=== PATIENT | female | born 1945 | race Two or more races ===

== ENCOUNTER 2017-02-20 23:22 | Inpatient (IN) | payer MEDICARE, OTHER ==
[~2017-02-20] VITALS: Ht 154.9 cm; Wt 57.6 kg
[~2017-02-20 23:22] MED LIST: ALPR0.255 PO; APIX5TAB PO; ASPI81TA2 PO; BLOO-140 IN; CARV12.52 PO; FURO40TA5 PO; INSU100V26 SQ; ISOS30TA47 PO
--- NOTE | 2017-02-20 23:25 | NUR ---
TO BED 2 BIB PARAMEDICS C/O SOB SINCE THIS AFTERNOON. PT ON 4L/NC BOTTLE HOP, PT VERBALIZE RELIEF OF SOB UPON ARRIVAL TO ER. PLACE PT ON CARDAIC MONITORING, CONTINUOUS POX, O2@4L/NC. SL 20G TO R HAND BOTTLE HOP. PENDING ER MD NGUYEN.
--- NOTE | 2017-02-20 23:55 | NUR ---
PT DAUGHTER AT BEDSIDE.
[2017-02-21] VITALS (7 sets, daily range): BP systolic 131–151; BP diastolic 62–91
--- NOTE | 2017-02-21 00:03 | NUR ---
RT AT BEDSIDE FOR ABG.
[2017-02-21 00:11] LABS: BASOPHILS # (AUTO) 0.1 /CMM (0.0-0.2); BASOPHILS % (AUTO) 0.7 % (0.0-2.0); EOSINOPHILS # (AUTO) 0.1 /CMM (0.0-0.7); HEMATOCRIT 40 % (33-45); HEMOGLOBIN 13.2 g/dL (11.5-14.8); LYMPHOCYTES # (AUTO) 1.1 /CMM (0.8-4.8); LYMPHOCYTES % (AUTO) 14.7 % (20.0-44.0); MEAN CORPUSCULAR HEMOGLOBIN 30 PG (26.0-33.0); MEAN CORPUSCULAR HGB CONC 33 g/dl (31.0-36.0); MEAN CORPUSCULAR VOLUME 91 fL (82-100); MONOCYTES # (AUTO) 0.5 /CMM (0.1-1.30); MONOCYTES % (AUTO) 7.1 % (2.0-12.0); NEUTROPHILS # (AUTO) 5.5 /CMM (1.8-8.9); NEUTROPHILS % (AUTO) 75.5 % (43.0-81.0); PLATELET COUNT (AUTO) 141 /CMM (150-450); RDW COEFFICIENT OF VARIATION 16.7 (11.5-15.0); RED BLOOD CELL COUNT(AUTO) 4.39 MIL/uL (4.0-5.2); WHITE BLOOD COUNT (AUTO) 7.3 K/uL (4.3-11.0)
[2017-02-21 00:18] LABS: ABG BASE EXCESS -0.6 mmol/L; ABG OXYGEN SATURATION 88.9 % (92.0-98.5); ABG PCO2 41.6 mmHg (35.0-45.0); ABG PH 7.387 (7.350-7.450); ABG PO2 62.2 mmHg (75.0-100.0); AaDO2 146.2 mmHg; COHb 1.1 % (0.5-1.5); MetHb 0.4 % (0.0-1.5); O2Hb 87.6 % (94.0-97.0); SITE, ABG Left Radial; VENT MODE, BG NASAL CANNULA
[2017-02-21 00:23] LABS: INR 1.15 (0.87-1.13)
[2017-02-21 00:29] LABS: TROPONIN I < 0.017 ng/mL (0.00-0.056)
[2017-02-21 00:34] LABS: ALANINE AMINOTRANSFERASE 35 U/L (12-78); ALBUMIN 2.9 g/dL (3.4-5.0); ALKALINE PHOSPHATASE 118 U/L (46-116); ASPARTATE AMINOTRANSFERASE 24 U/L (15-37); B-TYPE NATRIURETIC PEPTIDE 6312 PG/ML (0-125); BILIRUBIN,DIRECT 0.1 mg/dL (0.0-0.2); BILIRUBIN,TOTAL 0.6 mg/dL (0.2-1.0); CALCIUM, SERUM 9.2 mg/dL (8.5-10.1); CARBON DIOXIDE 27 mmol/L (21-32); CHLORIDE 110 mmol/L (98-107); GLUCOSE 170 mg/dL (74-106); POTASSIUM 3.9 mmol/L (3.5-5.1); SODIUM SERUM 146 mmol/L (136-145); TOTAL PROTEIN, SERUM 6.5 g/dL (6.4-8.2); UREA NITROGEN, BLOOD 42 mg/dL (7-18)
--- NOTE | 2017-02-21 01:27 | NUR ---
TELE 322-2
--- NOTE | 2017-02-21 01:31 | NUR ---
DR. FERNANDO PAGELilia PER ER ORDER.
--- NOTE | 2017-02-21 01:33 | NUR ---
ER TALKING TO DR. FERNANDO REGARDING PT ADMISSION.
--- NOTE | 2017-02-21 01:44 | NUR ---
REPORT CALLED TO MEDICAL ASSISTANT FLOATISIDORO DOUGLASS. ER MD SPOKE DR. FERNANDO WITH ADMISSION ORDERS RECEIVED. WILL TRANSPORT PT VIA ACLS PROTOCOL.
[2017-02-21] MEDS ORDERED: FUROSEMIDE 40 MG/4 ML VIAL ONE (01:58)
[2017-02-21] MEDS ORDERED: FUROSEMIDE 40 MG/4 ML VIAL IV ONE (02:00)
--- NOTE | 2017-02-21 02:04 | NUR ---
PT TRANSFERED TO FLOOR
--- NOTE | 2017-02-21 02:30 | NUR ---
ADMITTED PT FROM ER, pt alert,oriented,ambulatory, pt from home with x1 day of sob,spo2 92% on 2 liters, dyspneic on exertion and ambulation.a-flutter on monitor.denies nay pain ,snacks given.will continue to monitor, voided to toilet with assist.
[2017-02-21] MEDS: BLOOD SUGAR DIAGNOSTIC 1 EACH STRIP IN SCH ×5 (06:58→21:58)
[2017-02-21 07:40] LABS: BASOPHILS % (AUTO) 0.2 % (0.0-2.0); EOSINOPHILS # (AUTO) 0.2 /CMM (0.0-0.7); EOSINOPHILS % (AUTO) 2.7 % (0.0-6.0); HEMATOCRIT 42 % (33-45); HEMOGLOBIN 13.8 g/dL (11.5-14.8); LYMPHOCYTES % (AUTO) 16.3 % (20.0-44.0); MEAN CORPUSCULAR HEMOGLOBIN 30 PG (26.0-33.0); MEAN CORPUSCULAR HGB CONC 33 g/dl (31.0-36.0); MEAN CORPUSCULAR VOLUME 92 fL (82-100); MONOCYTES # (AUTO) 0.6 /CMM (0.1-1.30); MONOCYTES % (AUTO) 9.2 % (2.0-12.0); NEUTROPHILS # (AUTO) 4.5 /CMM (1.8-8.9); NEUTROPHILS % (AUTO) 71.6 % (43.0-81.0); PLATELET COUNT (AUTO) 145 /CMM (150-450); RED BLOOD CELL COUNT(AUTO) 4.58 MIL/uL (4.0-5.2); WHITE BLOOD COUNT (AUTO) 6.2 K/uL (4.3-11.0)
--- NOTE | 2017-02-21 07:48 | NUR ---
WHITE SOURER: INITIAL NOTE RECEIVED PT A/OX4. NO SOB NOTED. ON 2 L NC SATING AT 93%. NO DISTRESS NOTED. NO PAIN NOTED. NO CHEST PAIN NOTED. NO EDEMA. A.FLUTTER AT 80 BPM. AMBULATORY WITH ASSIST. HL #20 ON R.HAND. NO IF FLUIDS RUNNING. SITE CLEAR AND PATENT. RESTING COMFORTABLY IN BED. CALL LIGHT WITHIN REACH.
[2017-02-21] MEDS ORDERED: INSULIN REGULAR, HUMAN 100 UNIT/ML 3 ML VIAL SQ PRN (08:30)
[2017-02-21] MEDS ORDERED: ALPRAZOLAM 0.25 MG TABLET PO PRN (08:30)
[2017-02-21] MEDS ORDERED: BUMETANIDE INJ 8 MG in IV NS 0.9% 48 ML IV ONE (09:00)
[2017-02-21] MEDS: CARVEDILOL 12.5 MG TABLET PO SCH ×2 (09:35→21:54)
[2017-02-21] MEDS: FUROSEMIDE 40 MG TABLET PO SCH (09:35)
[2017-02-21] MEDS: ASPIRIN 81 MG TAB.CHEW PO SCH (09:35)
[2017-02-21] MEDS: ISOSORBIDE MONONITRATE (30MG) 30 MG TAB.SR.24H PO SCH (09:36)
[2017-02-21] MEDS ORDERED: APIXABAN 5 MG TABLET PO SCH (10:00)
[2017-02-21] MEDS ORDERED: BLOOD SUGAR DIAGNOSTIC 1 EACH STRIP IN SCH (12:00)
[2017-02-21] MEDS ORDERED: DEXTROSE 50%-WATER 50 ML DISP.SYRIN IV PRN (12:30)
[2017-02-21] MEDS: INSULIN REGULAR, HUMAN 100 UNIT/ML 3 ML VIAL SQ PRN ×3 (12:39→22:01)
--- NOTE | 2017-02-21 15:56 | NUR ---
ELIQUIS 5MG BROUGHT BY DAUGHTER DELIVERED TO PHARMACY HOME MED RECON.
[2017-02-21] MEDS: APIXABAN 5 MG PO SCH (17:27)
--- NOTE | 2017-02-21 18:24 | NUR ---
FISH BAIT PICKER: CLOSING NOTE PT A/OX4. ON 2 L NC SATING AT 92%. NO DISTRESS NOTED. NO SOB NOTED. NO PAIN NOTED. TOOK ALL MEDICATIONS ON TIME. NO ADVERSE REACTIONS NOTED. BUMEX WAS RUNNING FOR 8 HOURS. URINE OUTPUT 1400CC.AMBULATES TO BED SIDE COMMODE WITH OUT ASSISTANCE. HL #20 AT R HAND. SITE CLEAR, INTACT AND PATENT. NO REDNESS OR BLEEDING NOTED. NO IV FLUIDS RUNNING. RESTING COMFORTABLY IN BED. CALL LIGHT WITHIN REACH.
--- NOTE | 2017-02-21 19:30 | NUR ---
RN NOTES RECEIVED PATIENT UP IN BED, AO X 3, ABLE TO MAKE NEEDS KNOWN. NO ACUTE DISTRESS NOTED. DENIES ANY PAIN AT THIS TIME. TELE READING A FIB HR 98. NO SYMPTOMS OF HYPER/HYPOGLYCEMIA. IV SITE PATENT, INTACT; FLUSHED. SAFETY REMINDERS GIVEN. ON LOW BED WITH BILATERAL UPPER SIDE RAILS UP. CALL LIGHT WITHIN EASY REACH. WILL CONTINUE TO MONITOR.
[2017-02-22] VITALS: BP 119/55
[2017-02-22 04:00] VITALS: BP 144/70
--- NOTE | 2017-02-22 04:00 | NUR ---
RN NOTES RECEIVED ORDER FOR PROTONIX 40 MG PO X [address] VASQUEZ, NOTED AND CARRIED OUT.
[2017-02-22] MEDS: BLOOD SUGAR DIAGNOSTIC 1 EACH STRIP IN SCH ×3 (06:43→17:30)
[2017-02-22] MEDS: INSULIN REGULAR, HUMAN 100 UNIT/ML 3 ML VIAL SQ PRN ×3 (06:44→17:33)
--- NOTE | 2017-02-22 07:02 | NUR ---
RN NOTES PATIENT AWAKE. RESPIRATIONS EVEN. DENIES ANY PAIN AT THIS TIME. DUE MEDS GIVEN WITH NO ASE NOTED. NEEDS ATTENDED. SAFETY PRECAUTIONS AND COMFORT MEASURES IN PLACE. WILL GIVE REPORT TO DAY SHIFT FOR CONTINUITY OF CARE.
--- NOTE | 2017-02-22 07:35 | NUR ---
MAILING MACHINE OPERATOR: INITIAL NOTE RECEIVED PT A/OX4. ON TELE MONITOR. A.FIB AT 98BPM. ABLE TO AMBULATE INDEPENDENTLY. NO DISTRESS NOTED. NO PAIN NOTED. NO SOB NOTED. SATING AT 95% ON 2L NC. ON CCHO DIET. RIGHT HAND SALINE LOCK #20. SITE CLEAR AND PATENT. NO IV FLUIDS RUNNING. RESTING COMFORTABLY IN BED. CALL LIGHT WITHIN REACH.
[2017-02-22 08:00] VITALS: BP 147/57
[2017-02-22] MEDS: APIXABAN 5 MG PO SCH ×2 (08:36→17:34)
[2017-02-22] MEDS: ISOSORBIDE MONONITRATE (30MG) 30 MG TAB.SR.24H PO SCH (08:36)
[2017-02-22] MEDS: ASPIRIN 81 MG TAB.CHEW PO SCH (08:36)
[2017-02-22] MEDS: FUROSEMIDE 40 MG TABLET PO SCH (08:36)
[2017-02-22] MEDS: CARVEDILOL 12.5 MG TABLET PO SCH (08:37)
--- NOTE | 2017-02-22 11:01 | NUR ---
CASE MANAGEMENT NOTIFIED FOR CONSULT DUE OXYGEN TANK NEEDED FOR PT BEFORE D/C.
[2017-02-22 12:00] VITALS: BP 130/65
--- NOTE | 2017-02-22 14:00 | NUR ---
PER CASE MANAGEMENT, O2 NEEDS TO BE CHECKED WHILE AFTER PATIENT WALKS AND AT REST. AFTER PT WALKED WITH OUT O2 ATTACHED. O2 SATURATION CHECKED AND PT SATING AT 85%. ADMINISTERED 2L NC AND O2 SAT WENT BACK UP TO 94%. PT RESTING COMFORTABLY IN BED WITH 2L NC ATTACHED. NO DISTRESS NOTED.
[2017-02-22 16:00] VITALS: BP 119/58
--- NOTE | 2017-02-22 18:32 | NUR ---
MED SURGE RN: CLOSING NOTE PT A/OX4. TOOK ALL MEDICATIONS ON TIME. NO ADVERSE REACTIONS NOTED. D/C TELE PER MD ORDER. ABLE TO AMBULATE WITH OUT ASSISTANCE. RH #20 SL WITH NO IV FLUIDS RUNNING. ON 2L NC SATING AT 95%. NO SOB NOTED. NO DISTRESS NOTED. NO PAIN NOTED. INSULIN ADMINISTERED PER SLIDING SCALE. DC STANDING ORDER PLACED BY MD. AWAITING CASE MANAGEMENT TO APPROVE OXYGEN TANK FOR PT TO TAKE HOME. RESTING COMFORTABLY IN BED. CALL LIGHT WITHIN REACH.
--- NOTE | 2017-02-22 18:44 | NUR ---
PT TO BE D/C HOME TONIGHT WITH OXYGEN TANK. ENDORSED ALL D/C INFORMATION TO NEXT SHIFT NURSE.
[2017-02-22 20:00] VITALS: BP 112/47
--- NOTE | 2017-02-22 20:00 | NUR ---
MS FASHION PATTERNMAKER INITIAL NOTES PT SEEN SITTING IN THE CHAIR AWAKE AND ALERT AWARE THAT SHE'S GOING HOME TODAY AND WAITING FOR HER O2 TANK BEFORE SHE CAN GO HOME. NO SIGNS OF SOB NOTED. DENIES ANY PAIN OR ANY DISCOMFORT. REFUSED TO TAKE ANOTHER PICTURES OF HER SKIN STATED SHE JUST ADMITTED THIS MORNING. SHE ALREADY HAVE COPY OF HER CHART. BELONGING SIGNED AND CHECKED. PT ALSO AWARE THAT HER DAUGHTER NEEDS TO COME BACK TO MOBILE UNIT ASSISTANT HER MEDICATION FROM PHARMACY BECAUSE ITS ALREADY CLOSED BY THE TIME AM NURSE GOT ORDERED TO DC THE PT. KEPT HER COMFORTABLE AT ALL TIMES. WILL CONTINUE TO MONITOR.
--- NOTE | 2017-02-22 21:00 | NUR ---
PHOTOENGRAVING HELPER/CLOSING NOTES PT CALLED AND TELLING US HER O2 TANK WAS DELIVERED TO HER HOUSE AND HER DAUGHTER COMING TO PICK HER UP. STILL NO SOB NOTED. HEPLOCK REMOVED PER PT REQUESTED. DENIES ANY PAIN . PT WENT DOWN TO MEET HER DAUGHTER IN THE LOBBY. CHEN CURRY ACCOMPANIED PT DOWN TO THE LOBBY. DENIES ANY PAIN OR ANY DISCOMFORT. SHE STATED "THANK YOU ".
== END 2017-02-22 21:35 | disposition home or self-care (01) | DRG 291 ==
LOC: ER 23:23 → TELE 02-21 01:47 → TELE1 02-21 01:47 → UNDOADMIN 02-21 01:47 → MED 02-22 14:05
PROVIDERS: ADMIT Internal Medicine Nephrology; ATTEND Internal Medicine Nephrology
DX: I13.0 Hypertensive heart and chronic kidney disease with heart failure and stage 1 through stage 4 chronic kidney disease, or unspecified chronic kidney disease (principal); I50.33 Acute on chronic diastolic (congestive) heart failure; J96.00 Acute respiratory failure, unspecified whether with hypoxia or hypercapnia; N17.9 Acute kidney failure, unspecified; E11.22 Type 2 diabetes mellitus with diabetic chronic kidney disease; E11.51 Type 2 diabetes mellitus with diabetic peripheral angiopathy without gangrene; D69.6 Thrombocytopenia, unspecified; N18.3 Chronic kidney disease, stage 3 (moderate); I48.4 Atypical atrial flutter; Z79.4 Long term (current) use of insulin; Z88.2 Allergy status to sulfonamides; Z79.82 Long term (current) use of aspirin; Z79.01 Long term (current) use of anticoagulants; Z79.899 Other long term (current) drug therapy; Z87.891 Personal history of nicotine dependence; Z85.3 Personal history of malignant neoplasm of breast; Z82.49 Family history of ischemic heart disease and other diseases of the circulatory system; I25.10 Atherosclerotic heart disease of native coronary artery without angina pectoris; F41.9 Anxiety disorder, unspecified; E78.5 Hyperlipidemia, unspecified; I73.9 Peripheral vascular disease, unspecified; I07.1 Rheumatic tricuspid insufficiency; J44.9 Chronic obstructive pulmonary disease, unspecified
CPT/HCPCS: 36415; 36600; 71010-TC; 80048-TC; 80076-TC; 82803-TC; 82962-TC; 83735-TC; 83880; 84484-TC; 85025-TC; 85730-TC; 87081-TC; 93307-TC; A4216; A4606; J1815; J1940; J3490; Z7610

== ENCOUNTER 2017-03-06 21:27 | Inpatient (IN) | payer MEDICARE, OTHER ==
[~2017-03-06] VITALS: Ht 149.9 cm; Wt 55.8 kg
--- NOTE | 2017-03-06 21:27 | NUR ---
TO BED 2 BIB PARAMEDICS C/O MIDSTERNAL CHEST PRESSURE X4 HRS, TOO HOME NITRO WITHOUT RELIEF. PT AAOX4, NOTED PT O2 SAT 76% ON RA. PT SPEAKING IN FULL SENTENCES. PLACE PT ON CARDIAC MONITORING, CONTINUOUS POX, O2@4L/NC. SL 20G TO L FOREARM NEWSPAPER CARRIER. PENDING ER MD NGUYEN.
[2017-03-06 21:50] LABS: BASOPHILS # (AUTO) 0.3 /CMM (0.0-0.2); BASOPHILS % (AUTO) 3.5 % (0.0-2.0); EOSINOPHILS # (AUTO) 0.2 /CMM (0.0-0.7); EOSINOPHILS % (AUTO) 1.9 % (0.0-6.0); HEMATOCRIT 38 % (33-45); HEMOGLOBIN 12.4 g/dL (11.5-14.8); LYMPHOCYTES # (AUTO) 1.4 /CMM (0.8-4.8); LYMPHOCYTES % (AUTO) 15.5 % (20.0-44.0); MEAN CORPUSCULAR HEMOGLOBIN 30 PG (26.0-33.0); MEAN CORPUSCULAR HGB CONC 33 g/dl (31.0-36.0); MEAN CORPUSCULAR VOLUME 92 fL (82-100); MONOCYTES # (AUTO) 0.6 /CMM (0.1-1.30); MONOCYTES % (AUTO) 6.5 % (2.0-12.0); NEUTROPHILS # (AUTO) 6.2 /CMM (1.8-8.9); NEUTROPHILS % (AUTO) 72.6 % (43.0-81.0); PLATELET COUNT (AUTO) 164 /CMM (150-450); RDW COEFFICIENT OF VARIATION 15.9 (11.5-15.0); RED BLOOD CELL COUNT(AUTO) 4.07 MIL/uL (4.0-5.2); WHITE BLOOD COUNT (AUTO) 8.7 K/uL (4.3-11.0)
[2017-03-06] MEDS ORDERED: TRAM50TA2 PO (21:51)
[2017-03-06] MEDS ORDERED: AMLO10TA2 PO (21:51)
[2017-03-06] MEDS ORDERED: HYDR-4077 PO (21:51)
[2017-03-06] MEDS ORDERED: ROSU5TAB PO (21:51)
[2017-03-06 22:05] LABS: CARBON DIOXIDE 28 mmol/L (21-32); CHLORIDE 109 mmol/L (98-107); CREATININE 1.8 mg/dL (0.6-1.3); GLUCOSE 134 mg/dL (74-106); POTASSIUM 4.2 mmol/L (3.5-5.1); SODIUM SERUM 145 mmol/L (136-145); UREA NITROGEN, BLOOD 41 mg/dL (7-18)
--- NOTE | 2017-03-06 22:20 | NUR ---
PATIENT GOING TO TELE 306-2
--- NOTE | 2017-03-06 22:25 | NUR ---
PT DAUGHTER PHONE NUMBER (JURGEN)
[2017-03-06 22:27] LABS: INR 1.1 (0.87-1.13); PROTHROMBIN TIME 11.4 SECS (9.5-12.7)
[2017-03-06] MEDS ORDERED: CEFTRIAXONE 1GM BAG (ER ONLY) 1 GM/50 ML PIGGYBACK IV ONE (22:30)
[2017-03-06] MEDS ORDERED: AZITHROMYCIN 500 MG in IV D5W 250 ML IV ONE (22:30)
--- NOTE | 2017-03-06 22:39 | NUR ---
ER MD SPOKE TO DR. BOWER REGARDING PT ADMISSION. WILL CALL FOR REPORT.
--- NOTE | 2017-03-06 22:43 | NUR ---
AZITHMOMAX 500MG IVPB ENDORSED TO LABORATORY WORKERISIDORO BENTLEY. WILL TRANSPORT PT VIA ACLS PROTOCOL.
--- NOTE | 2017-03-06 22:43 | NUR ---
REPORT CALLED TO JOINT SETTERISIDORO BENTLEY. WILL TRANSPORT PT VIA ACLS PROTOCOL.
[2017-03-06] MEDS ORDERED: CEFTRIAXONE 1GM BAG (ER ONLY) 50 ML IV ONE (22:54)
--- NOTE | 2017-03-06 23:20 | NUR ---
TELE/RN NOTES RECEIVED PT. FROM ER VIA LIAM. PT. IS AWAKE, ALERT AND ORIENTED X4. BREATHING EVEN AND UNLABORED ON 2LPM O2 VIA NC. NO SOB, RESPIRATORY DISTRESS OR COMPLAINTS OF PAIN NOTED AT THIS TIME. NO COMPLAINTS OF CHEST PAIN NOTED AT THIS TIME. ORIENTED PT. TO ROOM. PLACED. EXTERNAL ROOTER OPERATOR ON PT. CURRENT RHYTHM = SINUS RHYTHM HR 76 WITH PAC'S. PT. WITH LEFT FOREARM 20 GAUGE IV SALINE LOCK PRESENT, PATENT AND INTACT. BED LOCKED AND IN LOWEST POSITION, SIDE RAILS UP X2, CALL LIGHT WITHIN REACH, WILL CONTINUE TO MONITOR.
[2017-03-07] VITALS (7 sets, daily range): BP systolic 115–157; BP diastolic 60–74
[2017-03-07] MEDS ORDERED: ONDANSETRON HCL/PF 4 MG/2 ML VIAL IV PRN (00:30)
[2017-03-07] MEDS ORDERED: NITROGLYCERIN 0.4 MG/TAB BOTTLE SL PRN (00:30)
[2017-03-07] MEDS ORDERED: ACETAMINOPHEN 325 MG TABLET PO PRN (00:30)
[2017-03-07] MEDS ORDERED: ALPRAZOLAM 0.25 MG TABLET ONE (01:01)
[2017-03-07] MEDS: ALPRAZOLAM 0.25 MG TABLET PO PRN ×2 (01:05→21:29)
[2017-03-07] MEDS ORDERED: AZITHROMYCIN 500 MG VIAL ONE (01:40)
--- NOTE | 2017-03-07 02:42 | NUR ---
TELE/RN NOTES ZITHROMAX 500MG IVPB MEDICATION ADMINISTERED TO PT. PER ER DOCTOR ORDER. PT. DID NOT RECEIVE MEDICATION IN ER ORDERED.
[2017-03-07] MEDS ORDERED: AZITHROMYCIN 500 MG in IV D5W 250 ML IV ONE (03:00)
--- NOTE | 2017-03-07 06:15 | NUR ---
TELE/RN NOTES PT. IS LYING IN BED RESTING. BREATHING EVEN AND UNLABORED ON 2LPM O2 VIA NC. NO SOB, RESPIRATORY DISTRESS OR COMPLAINTS OF PAIN NOTED AT THIS TIME AND THROUGHOUT SHIFT. NO COMPLAINTS OF CHEST PAIN NOTED AT THIS TIME. PT. WITH EXTERNAL PACKING MACHINE OPERATOR PRESENT AND INTACT, CURRENT RHYTHM = SINUS RHYTHM HR 77 WITH PAC'S. PT. WITH LEFT FOREARM 20 GAUGE IV SALINE LOCK PRESENT, PATENT AND INTACT. ALL PT. NEEDS MET. ALL DUE MEDICATIONS GIVEN. BED LOCKED AND IN LOWEST POSITION, SIDE RAILS UP X2, CALL LIGHT WITHIN REACH, WILL ENDORSE TO DAYSHIFT NURSE FOR CONTINUITY OF CARE.
[2017-03-07] MEDS ORDERED: BLOOD SUGAR DIAGNOSTIC 1 EACH STRIP IN SCH ×2 (07:30→12:00)
[2017-03-07 07:57] LABS: BASOPHILS % (AUTO) 0.1 % (0.0-2.0); EOSINOPHILS # (AUTO) 0.1 /CMM (0.0-0.7); EOSINOPHILS % (AUTO) 2.2 % (0.0-6.0); HEMATOCRIT 36 % (33-45); HEMOGLOBIN 11.9 g/dL (11.5-14.8); LYMPHOCYTES # (AUTO) 1.1 /CMM (0.8-4.8); LYMPHOCYTES % (AUTO) 18.2 % (20.0-44.0); MEAN CORPUSCULAR HEMOGLOBIN 31 PG (26.0-33.0); MEAN CORPUSCULAR HGB CONC 33 g/dl (31.0-36.0); MEAN CORPUSCULAR VOLUME 94 fL (82-100); MONOCYTES # (AUTO) 0.5 /CMM (0.1-1.30); MONOCYTES % (AUTO) 7.8 % (2.0-12.0); NEUTROPHILS # (AUTO) 4.5 /CMM (1.8-8.9); NEUTROPHILS % (AUTO) 71.7 % (43.0-81.0); PLATELET COUNT (AUTO) 138 /CMM (150-450); RDW COEFFICIENT OF VARIATION 17.6 (11.5-15.0); RED BLOOD CELL COUNT(AUTO) 3.83 MIL/uL (4.0-5.2); WHITE BLOOD COUNT (AUTO) 6.3 K/uL (4.3-11.0)
--- NOTE | 2017-03-07 08:00 | NUR ---
CODING COMPLIANCE MANAGER NOTES PATIENT IN BED RESTING NO SOB OR ACUTE DISTRESS NOTED. PERIPHERAL IV INTACT PATENT. BED IN LOW LOCKED POSITION. CALL LIGHT WITHIN REACH. WILL CONTINUE TO MONITOR.
[2017-03-07 08:15] LABS: CALCIUM, SERUM 8.6 mg/dL (8.5-10.1); CARBON DIOXIDE 25 mmol/L (21-32); CHLORIDE 109 mmol/L (98-107); CREATININE 1.6 mg/dL (0.6-1.3); GLUCOSE 126 mg/dL (74-106); POTASSIUM 4.2 mmol/L (3.5-5.1); SODIUM SERUM 143 mmol/L (136-145); UREA NITROGEN, BLOOD 37 mg/dL (7-18)
[2017-03-07] MEDS ORDERED: ISOSORBIDE DINITRATE (10MG) 10 MG TABLET PO SCH (09:00)
[2017-03-07] MEDS ORDERED: APIXABAN 5 MG TABLET PO SCH (09:00)
[2017-03-07] MEDS ORDERED: TRAMADOL HCL 50 MG TABLET PO PRN (09:00)
[2017-03-07] MEDS ORDERED: ALPRAZOLAM 0.25 MG TABLET PO PRN (09:00)
--- NOTE | 2017-03-07 10:00 | NUR ---
DECORATING AND ASSEMBLY SUPERVISOR NOTES PATIENT SEEN AND EVALUATED BY DR. CARABALLO ORDERS TO INSERT LNYN CATHETER DUE TO PATIENTS REQUEST.
[2017-03-07] MEDS: AMLODIPINE BESYLATE 10 MG TABLET PO SCH (10:12)
[2017-03-07] MEDS: FUROSEMIDE 40 MG TABLET PO SCH (10:13)
[2017-03-07] MEDS: ATORVASTATIN 10 MG TABLET PO SCH (10:14)
[2017-03-07] MEDS: ISOSORBIDE DINITRATE (10MG) 10 MG TABLET PO SCH ×2 (10:40→16:48)
[2017-03-07] MEDS: APIXABAN 2.5 MG TABLET PO SCH ×2 (10:41→16:42)
[2017-03-07] MEDS: IPRATROPIUM NEB FS 0.5 MG/2.5 ML AMPUL.NEB NEB SCH ×4 (11:57→23:34)
[2017-03-07] MEDS: GUAIFENESIN LA 600 MG TABLET.SA PO SCH ×2 (12:48→21:29)
[2017-03-07] MEDS ORDERED: DEXTROSE 50%-WATER 50 ML DISP.SYRIN IV PRN (14:00)
[2017-03-07] MEDS: NYSTATIN TOP POWDER 15 GM BOTTLE TP SCH (16:43)
[2017-03-07] MEDS: BLOOD SUGAR DIAGNOSTIC 1 EACH STRIP IN SCH ×2 (16:59→21:29)
--- NOTE | 2017-03-07 18:07 | NUR ---
COMMERCIAL LINES ACCOUNT ASSISTANT NOTES PATIENT IN BED RESTING NO SOB OR ACUTE DISTRESS NOTED. ALL DUE MEDICATIONS ADMINISTERED. ALL NEEDS MET. PATIENT ON 2L OXYGEN VIA NASAL CANULA, NOTED SOB WITH EXERTION. WILL ENDORSE DULCE TO PM SHIFT.
--- NOTE | 2017-03-07 19:30 | NUR ---
BENCH MOLDER APPRENTICE NOTE: PATIENT RESTING IN BED, NO ACUTE DISTRESS NOTED. BREATHING EVEN AND UNLABORED, NO SOB NOTED, OXYGEN VIA NC AT [address] LYNN CATHETER IN PLACE, DRAINING CLEAR AND YELLOW URINE. IV TO LFA IN PLACE. BED LOCKED AND IN LOWEST POSITION, CALL LIGHT IN REACH. WILL CONTINUE TO MONITOR.
[2017-03-07] MEDS: CARVEDILOL 12.5 MG TABLET PO SCH (21:29)
[2017-03-07] MEDS: INSULIN REGULAR, HUMAN 100 UNIT/ML 3 ML VIAL SQ PRN (21:44)
--- NOTE | 2017-03-07 21:45 | NUR ---
WEAVER NEEDLE LOOM NOTE: PATIENT BLOOD SUGAR LEVEL 160 MG/DL, PATIENT TO RECEIVE 2 UNITS OF INSULIN PER SLIDING SCALE, NO S/S OF HYPER/HYPOGLYCEMIA. PATIENT ALSO REQUEST FOR SLEEP, XANAX 0.25MG ORAL GIVEN PER MD ORDER. WILL CONTINUE TO MONITOR.
[2017-03-08] VITALS: BP 124/50
[2017-03-08] MEDS: IPRATROPIUM NEB FS 0.5 MG/2.5 ML AMPUL.NEB NEB SCH ×6 (03:30→23:30)
[2017-03-08 04:00] VITALS: BP 158/70
--- NOTE | 2017-03-08 06:15 | NUR ---
MERCHANDISE PROCESSOR NOTE: PATIENT RESTING IN BED, NO ACUTE DISTRESS NOTED. BREATHING EVEN AND UNLABORED, NO SOB NOTED, OXYGEN VIA NC AT [address] LYNN CATHETER IN PLACE, DRAINED 1000ML OF CLEAR AND YELLOW URINE. IV TO LFA IN PLACE. PATIENT BLOOD SUGAR LEVEL 129 MG/DL, NO INSULIN PER SLIDING SCALE NEEDED. NO S/S OF HYPER/HYPOGLYCEMIA NOTED. BED LOCKED AND IN LOWEST POSITION, CALL LIGHT IN REACH. WILL ENDORSE TO DAY NURSE TO CONTINUE WITH PLAN OF CARE. Addendum: 03/08/17 at 0626 by SYLVAIN STEVENSON RN TELE READING AFIB 80'S
[2017-03-08 06:18] LABS: BASOPHILS % (AUTO) 0.1 % (0.0-2.0); EOSINOPHILS # (AUTO) 0.2 /CMM (0.0-0.7); EOSINOPHILS % (AUTO) 2.2 % (0.0-6.0); HEMATOCRIT 35 % (33-45); HEMOGLOBIN 11.6 g/dL (11.5-14.8); LYMPHOCYTES # (AUTO) 1.1 /CMM (0.8-4.8); LYMPHOCYTES % (AUTO) 12.9 % (20.0-44.0); MEAN CORPUSCULAR HEMOGLOBIN 31 PG (26.0-33.0); MEAN CORPUSCULAR HGB CONC 33 g/dl (31.0-36.0); MEAN CORPUSCULAR VOLUME 93 fL (82-100); MONOCYTES # (AUTO) 0.4 /CMM (0.1-1.30); MONOCYTES % (AUTO) 5.3 % (2.0-12.0); NEUTROPHILS # (AUTO) 6.7 /CMM (1.8-8.9); NEUTROPHILS % (AUTO) 79.5 % (43.0-81.0); PLATELET COUNT (AUTO) 133 /CMM (150-450); RDW COEFFICIENT OF VARIATION 17.4 (11.5-15.0); RED BLOOD CELL COUNT(AUTO) 3.82 MIL/uL (4.0-5.2); WHITE BLOOD COUNT (AUTO) 8.5 K/uL (4.3-11.0)
[2017-03-08] MEDS: BLOOD SUGAR DIAGNOSTIC 1 EACH STRIP IN SCH ×4 (06:34→21:19)
[2017-03-08 06:41] LABS: CALCIUM, SERUM 9.9 mg/dL (8.5-10.1); CARBON DIOXIDE 29 mmol/L (21-32); CHLORIDE 106 mmol/L (98-107); CREATININE 1.6 mg/dL (0.6-1.3); GLUCOSE 135 mg/dL (74-106); MAGNESIUM 1.9 mg/dL (1.8-2.4); PHOSPHORUS 4.6 mg/dL (2.5-4.9); POTASSIUM 4.4 mmol/L (3.5-5.1); SODIUM SERUM 140 mmol/L (136-145); UREA NITROGEN, BLOOD 38 mg/dL (7-18)
--- NOTE | 2017-03-08 07:15 | NUR ---
RN NOTES RECEIVED PATIENT AWAKE ALERT AND VERBALLY RESPONSIVE, SITTING UP IN BED, ABLE TO MAKE NEEDS KNOWN. RESPIRATIONS EVEN AND UNLABORED, CONTINUED ON PAIN MEDICATION PRN DENIES ANY PAIN AT THIS TIME. IV ACCESS PATENT AND INTACT NO REDNESS OR INFILTRATION NOTED. SAFETY MEASURES IN PLACE, KEPT CLEAN DRY AND COMFORTABLE CALL LIGHT WITHIN EASY REACH WILL CONTINUE TO MONITOR.
[2017-03-08 08:00] VITALS: BP 150/68
[2017-03-08] MEDS: APIXABAN 2.5 MG TABLET PO SCH ×2 (08:31→18:10)
[2017-03-08] MEDS: AMLODIPINE BESYLATE 10 MG TABLET PO SCH (08:32)
[2017-03-08] MEDS: ISOSORBIDE DINITRATE (10MG) 10 MG TABLET PO SCH ×2 (08:32→16:34)
[2017-03-08] MEDS: FUROSEMIDE 40 MG TABLET PO SCH (08:32)
[2017-03-08] MEDS: CARVEDILOL 12.5 MG TABLET PO SCH ×2 (08:32→21:00)
[2017-03-08] MEDS: ATORVASTATIN 10 MG TABLET PO SCH (08:33)
[2017-03-08] MEDS: GUAIFENESIN LA 600 MG TABLET.SA PO SCH ×2 (08:33→21:19)
[2017-03-08] MEDS: NYSTATIN TOP POWDER 15 GM BOTTLE TP SCH ×2 (08:52→16:41)
[2017-03-08 12:00] VITALS: BP_SYST 116; BP_SYST 155; BP_DIAS 54; BP_DIAS 65
[2017-03-08] MEDS: INSULIN REGULAR, HUMAN 100 UNIT/ML 3 ML VIAL SQ PRN ×3 (12:26→21:26)
[2017-03-08] MEDS: FUROSEMIDE 40 MG/4 ML VIAL IV SCH ×2 (12:40→16:35)
--- NOTE | 2017-03-08 14:00 | NUR ---
RN NOTES PATIENT AWAKE ALERT AND VERBALLY RESPONSIVE, RESPIRATIONS EVEN AND UNLABORED, DENIES ANY PAIN OR DISCOMFORT AT THIS TIME CONTINUE TO MONITOR AT THIS TIME
[2017-03-08 16:00] VITALS: BP 124/56
--- NOTE | 2017-03-08 18:49 | NUR ---
RN NOTES PATIENT AWAKE ALERT AND VERBALLY RESPONSIVE, SITTING UP IN BED, ABLE TO MAKE NEEDS KNOWN. RESPIRATIONS EVEN AND UNLABORED, CONTINUED ON PAIN MEDICATION PRN DENIES ANY PAIN AT THIS TIME OR DISCOMFORT AT THIS TIME. IV ACCESS PATENT AND INTACT NO REDNESS OR INFILTRATION NOTED. SAFETY MEASURES IN PLACE, KEPT CLEAN DRY AND COMFORTABLE CALL LIGHT WITHIN EASY REACH WILL CONTINUE TO MONITOR.
--- NOTE | 2017-03-08 19:30 | NUR ---
BOBTAIL DRIVER NOTE: PATIENT RESTING IN BED, NO ACUTE DISTRESS NOTED. BREATHING EVEN AND UNLABORED, NO SOB NOTED, OXYGEN VIA NC AT [address] LYNN CATHETER IN PLACE, DRAINING CLEAR AND YELLOW URINE. IV TO LFA IN PLACE. BED LOCKED AND IN LOWEST POSITION, CALL LIGHT IN REACH. WILL CONTINUE TO MONITOR.
[2017-03-08 20:00] VITALS: BP 122/84
[2017-03-08] MEDS: ALPRAZOLAM 0.25 MG TABLET PO PRN (21:19)
--- NOTE | 2017-03-08 21:45 | NUR ---
HOSPICE RN NOTE: PATIENT BLOOD SUGAR LEVEL 233 MG/DL, PATIENT TO RECEIVE 4 UNITS OF INSULIN PER SLIDING SCALE, NO S/S OF HYPER/HYPOGLYCEMIA. PATIENT ALSO REQUEST FOR SLEEP, XANAX 0.25MG ORAL GIVEN PER MD ORDER. WILL CONTINUE TO MONITOR. Addendum: 03/08/17 at 2331 by SYLVAIN STEVENSON RN PATIENT REFUSES BLOOD PRESSURE MEDICATION THAT HER BLOOD PRESSURE DROPPED TOO MUCH IN THE MORNING.
[2017-03-09] MEDS: IPRATROPIUM NEB FS 0.5 MG/2.5 ML AMPUL.NEB NEB SCH ×4 (03:30→16:16)
[2017-03-09] MEDS: INSULIN REGULAR, HUMAN 100 UNIT/ML 3 ML VIAL SQ PRN ×3 (06:10→17:59)
--- NOTE | 2017-03-09 06:10 | NUR ---
MS RN NOTE: PATIENT RESTING IN BED, NO ACUTE DISTRESS NOTED. BREATHING EVEN AND UNLABORED, NO SOB NOTED, OXYGEN VIA NC AT [address] LYNN CATHETER IN PLACE. IV TO LFA IN PLACE. PATIENT BLOOD SUGAR LEVEL 157 MG/DL, PATIENT TO RECEIVE 2 UNITS OF INSULIN PER SLIDING SCALE NEEDED. NO S/S OF HYPER/HYPOGLYCEMIA NOTED. BED LOCKED AND IN LOWEST POSITION, CALL LIGHT IN REACH. WILL ENDORSE TO DAY NURSE TO CONTINUE WITH PLAN OF CARE.
[2017-03-09] MEDS: BLOOD SUGAR DIAGNOSTIC 1 EACH STRIP IN SCH ×3 (06:34→18:00)
[2017-03-09 06:37] LABS: BASOPHILS % (AUTO) 0.5 % (0.0-2.0); EOSINOPHILS # (AUTO) 0.2 /CMM (0.0-0.7); EOSINOPHILS % (AUTO) 3.5 % (0.0-6.0); HEMATOCRIT 39 % (33-45); HEMOGLOBIN 12.9 g/dL (11.5-14.8); LYMPHOCYTES # (AUTO) 1.5 /CMM (0.8-4.8); MEAN CORPUSCULAR HEMOGLOBIN 31 PG (26.0-33.0); MEAN CORPUSCULAR HGB CONC 33 g/dl (31.0-36.0); MEAN CORPUSCULAR VOLUME 94 fL (82-100); MONOCYTES # (AUTO) 0.6 /CMM (0.1-1.30); MONOCYTES % (AUTO) 9.1 % (2.0-12.0); NEUTROPHILS # (AUTO) 4.7 /CMM (1.8-8.9); NEUTROPHILS % (AUTO) 65.9 % (43.0-81.0); PLATELET COUNT (AUTO) 147 /CMM (150-450); RED BLOOD CELL COUNT(AUTO) 4.21 MIL/uL (4.0-5.2); WHITE BLOOD COUNT (AUTO) 7.2 K/uL (4.3-11.0)
[2017-03-09 07:09] LABS: CARBON DIOXIDE 30 mmol/L (21-32); CHLORIDE 102 mmol/L (98-107); GLUCOSE 151 mg/dL (74-106); MAGNESIUM 2.1 mg/dL (1.8-2.4); PHOSPHORUS 6.2 mg/dL (2.5-4.9); POTASSIUM 3.7 mmol/L (3.5-5.1); SODIUM SERUM 141 mmol/L (136-145); UREA NITROGEN, BLOOD 50 mg/dL (7-18)
[2017-03-09 08:00] VITALS: BP 134/63
--- NOTE | 2017-03-09 08:05 | NUR ---
MS RN RECEIVED ON BED, AWAKE,ALERT,ORIENTED X4,NOT IN ANY FORM OF DISTRESS, RESPIRATIONS EVEN AND UNLABORED,NO SOB NOTED, LUNGS ARE CLEAR,ABDOMEN SOFT,POSITIVE BOWEL SOUNDS, DENIES PAIN AT THIS TIME, CALL LIGHT W/IN REACH, WILL MONITOR PATIENT'S CONDITION.
--- NOTE | 2017-03-09 08:50 | NUR ---
MS CHAUDHRY BREAKFAST SERVED,DUE MEDS GIVEN,TOLERATED WELL.
[2017-03-09] MEDS: AMLODIPINE BESYLATE 10 MG TABLET PO SCH (09:00)
[2017-03-09] MEDS: CARVEDILOL 12.5 MG TABLET PO SCH (09:00)
[2017-03-09] MEDS: GUAIFENESIN LA 600 MG TABLET.SA PO SCH (09:06)
[2017-03-09] MEDS: ATORVASTATIN 10 MG TABLET PO SCH (09:06)
[2017-03-09] MEDS: FUROSEMIDE 40 MG TABLET PO SCH (09:06)
[2017-03-09] MEDS: ISOSORBIDE DINITRATE (10MG) 10 MG TABLET PO SCH ×2 (09:07→17:57)
[2017-03-09] MEDS: NYSTATIN TOP POWDER 15 GM BOTTLE TP SCH ×2 (09:12→18:00)
--- NOTE | 2017-03-09 11:05 | NUR ---
MS RN WAS SEEN BY DR. SATHISH Maurice/ ORDER TO GO HOME TODAY, DAUGHTER WILL PICK HER UP.
--- NOTE | 2017-03-09 11:19 | NUR ---
WOUND CARE CONSULT: PT REFUSED SKIN ASSESSMENT AND STATED IS USING ANTIFUNGAL POWDER WITH GOOD RESULTS. PT TO BE DISCHARGED TODAY.
[2017-03-09] MEDS: APIXABAN 2.5 MG TABLET PO SCH ×2 (12:12→17:57)
--- NOTE | 2017-03-09 13:00 | NUR ---
MS RN LYNN CATHER REMOVED, WILL MONITOR FOR OUTPUT.
[2017-03-09 16:00] VITALS: BP 124/61
--- NOTE | 2017-03-09 16:00 | NUR ---
MS RN PATIENT URINATED W/O DIFFICULTY.
--- NOTE | 2017-03-09 17:00 | NUR ---
MS RN PATIENT READY TO BE ROOM INSPECTOR, REFUSED TO TAKE PICTURE UNDER HER BREAST FOR REDNESS.
[2017-03-09 17:57] VITALS: BP 122/69
--- NOTE | 2017-03-09 18:00 | NUR ---
MS INVESTIGATOR CLAIMS INSTRUCTION GIVEN, AND WELL UNDERSTOOD, PATIENT WENT HOME ,GOVERNMENT SERVICE EXECUTIVE BY HER DAUGHTER,ALL NEEDS ATTENDED.
== END 2017-03-09 18:20 | disposition home or self-care (01) | DRG 291 ==
LOC: ER 21:28 → MED 22:36 → TELE 03-07 04:45 → MED 03-08 12:06
PROVIDERS: ADMIT Internal Medicine Nephrology; ATTEND Internal Medicine Nephrology
DX: I13.0 Hypertensive heart and chronic kidney disease with heart failure and stage 1 through stage 4 chronic kidney disease, or unspecified chronic kidney disease (principal); I50.33 Acute on chronic diastolic (congestive) heart failure; N17.9 Acute kidney failure, unspecified; E11.22 Type 2 diabetes mellitus with diabetic chronic kidney disease; J90 Pleural effusion, not elsewhere classified; I48.91 Unspecified atrial fibrillation; I48.92 Unspecified atrial flutter; E11.51 Type 2 diabetes mellitus with diabetic peripheral angiopathy without gangrene; J98.11 Atelectasis; I27.20 Pulmonary hypertension, unspecified; Z99.81 Dependence on supplemental oxygen; N18.9 Chronic kidney disease, unspecified; E78.5 Hyperlipidemia, unspecified; F41.9 Anxiety disorder, unspecified; I25.10 Atherosclerotic heart disease of native coronary artery without angina pectoris; Z79.01 Long term (current) use of anticoagulants; Z85.3 Personal history of malignant neoplasm of breast; Z87.891 Personal history of nicotine dependence; Z88.2 Allergy status to sulfonamides; J44.9 Chronic obstructive pulmonary disease, unspecified; Z82.49 Family history of ischemic heart disease and other diseases of the circulatory system; Z79.84 Long term (current) use of oral hypoglycemic drugs
CPT/HCPCS: 36415; 71010-TC; 71020-TC; 80048-TC; 82962-TC; 83605-TC; 83735-TC; 84100-TC; 84484-TC; 85025-TC; 85730-TC; 87040-TC; 93970-TC; 94799-TC; A4606; J0456; J0696; J1815; J1940; J7050; J7060; Z7610

== ENCOUNTER 2017-04-05 06:01 | Inpatient (IN) | payer MEDICARE, OTHER ==
[2017-04-05] VITALS (31 sets, daily range): BP systolic 103–158; BP diastolic 37–89
[~2017-04-05] VITALS: Ht 152.4 cm; Wt 53.3 kg
[~2017-04-05 06:01] MED LIST changes: +AMLO10TA2 PO; -ASPI81TA2 PO; +HYDR-4077 PO; +ROSU5TAB PO; +TRAM50TA2 PO
--- NOTE | 2017-04-05 06:02 | NUR ---
PT BIB RA TO ER BED 5, PT C/O SOB AND CP X 2 DAYS. PARAMEDICS STATE PT COMING FROM HOME O2 SAT 88 ON HOME O2. OBSERVED PT RESP TACHYPNEA AND SHALLOW. PT PLACED ON VS/LIBRARY ASSOCIATE. RT AT BEDSIDE TO PLACE PT ON BIPAP PER MD ORDERS. 18G IV TO L FA AND 18G IV TO RIGHT HAND STARTED USING ASEPTIC TECH, BLOOD DRAWN AND HANDED OVER TO LAB AT BEDSIDE. MD AT BEDSIDE. BIPAP SETTINGS IPAP 8 EPAP 5 RATE 18 FI02 100
--- NOTE | 2017-04-05 06:06 | NUR ---
RT CALLED FOR BIPAP
--- NOTE | 2017-04-05 06:17 | NUR ---
CALLED FOR ICU BED
[2017-04-05] MEDS ORDERED: ASPIRIN 325 MG TABLET PO ONE (06:30)
[2017-04-05] MEDS ORDERED: NITROGLYCERIN PACKET 1 GM PACKET TD ONE (06:30)
[2017-04-05] MEDS ORDERED: FUROSEMIDE 40 MG/4 ML VIAL IV ONE (06:30)
[2017-04-05 06:31] LABS: BASOPHILS % (AUTO) 0.4 % (0.0-2.0); EOSINOPHILS # (AUTO) 0.2 /CMM (0.0-0.7); EOSINOPHILS % (AUTO) 2.3 % (0.0-6.0); HEMATOCRIT 33 % (33-45); HEMOGLOBIN 10.7 g/dL (11.5-14.8); LYMPHOCYTES % (AUTO) 12.1 % (20.0-44.0); MEAN CORPUSCULAR HEMOGLOBIN 29 PG (26.0-33.0); MEAN CORPUSCULAR HGB CONC 32 g/dl (31.0-36.0); MEAN CORPUSCULAR VOLUME 91 fL (82-100); MONOCYTES # (AUTO) 0.5 /CMM (0.1-1.30); MONOCYTES % (AUTO) 5.9 % (2.0-12.0); NEUTROPHILS # (AUTO) 6.7 /CMM (1.8-8.9); NEUTROPHILS % (AUTO) 79.3 % (43.0-81.0); PLATELET COUNT (AUTO) 156 /CMM (150-450); RDW COEFFICIENT OF VARIATION 17.2 (11.5-15.0); RED BLOOD CELL COUNT(AUTO) 3.68 MIL/uL (4.0-5.2); WHITE BLOOD COUNT (AUTO) 8.5 K/uL (4.3-11.0)
[2017-04-05] MEDS ORDERED: FUROSEMIDE 40 MG/4 ML VIAL ONE (06:31)
[2017-04-05] MEDS ORDERED: NITROGLYCERIN PACKET 1 GM PACKET ONE (06:31)
[2017-04-05] MEDS ORDERED: ASPIRIN 325 MG TABLET ONE (06:32)
--- NOTE | 2017-04-05 06:40 | NUR ---
16FR F/C INSERTED USING FLORICULTURIST, PT TOLERATED PROCEDURE WELL
[2017-04-05 06:46] LABS: CALCIUM, SERUM 10.1 mg/dL (8.5-10.1); CARBON DIOXIDE 29 mmol/L (21-32); CHLORIDE 104 mmol/L (98-107); CREATININE 1.8 mg/dL (0.6-1.3); GLUCOSE 194 mg/dL (74-106); POTASSIUM 4.4 mmol/L (3.5-5.1); SODIUM SERUM 141 mmol/L (136-145); UREA NITROGEN, BLOOD 45 mg/dL (7-18)
--- NOTE | 2017-04-05 06:50 | NUR ---
XRAY AT BEDSIDE
[2017-04-05 06:52] LABS: TROPONIN I < 0.017 ng/mL (0.00-0.056)
[2017-04-05 07:00] LABS: ALANINE AMINOTRANSFERASE 22 U/L (12-78); ALBUMIN 3.6 g/dL (3.4-5.0); ALKALINE PHOSPHATASE 90 U/L (46-116); ASPARTATE AMINOTRANSFERASE 19 U/L (15-37); B-TYPE NATRIURETIC PEPTIDE 2658 PG/ML (0-125); BILIRUBIN,DIRECT 0.1 mg/dL (0.0-0.2); BILIRUBIN,TOTAL 0.6 mg/dL (0.2-1.0); TOTAL PROTEIN, SERUM 7.6 g/dL (6.4-8.2)
[2017-04-05 07:06] LABS: INR 1.03 (0.87-1.13); PROTHROMBIN TIME 10.7 SECS (9.5-12.7)
--- NOTE | 2017-04-05 07:10 | NUR ---
REPORT GIVEN TO ISIDORO BALBUENA FOR DULCE.
--- NOTE | 2017-04-05 07:13 | NUR ---
DR. MOSQUERA PAGED; WILL RETURN CALL.
[2017-04-05] MEDS ORDERED: BUMETANIDE INJ 16 MG in IV NS 0.9% 16 ML IV ONE (08:00)
--- NOTE | 2017-04-05 08:50 | NUR ---
RT NOTE: PATIENT TRANSPORTED TO ICU WITH NURSE (SREE) AND PLACED ON 4LPM VIA NASAL CANNULA. BIPAP STAND BY. NURSE AWARE.
[2017-04-05] MEDS ORDERED: APIXABAN 5 MG TABLET PO SCH (09:00)
--- NOTE | 2017-04-05 09:00 | NUR ---
GAME BIRD FARMER ADMITTING NOTES: REC'D REPORT FROM SREE COURT MAGISTRATE. PT ADMITTED TO ROOM 261, TRANSFERRED VIA GURNEY ACCOMPANIED BY COURT MAGISTRATE, OIM ARCHITECT, AND RT W/ BIPAP ON STANDBY. PT NOT ON ANY DISTRESS, A/OX 3, DENIES ANY PAIN/DISCOMFORT/SOB. ON O2 AT 5LPM/NC, SATING INITIALLY AT 93%. PLACED ON TELEMONITOR, A.FLUTTER W/ HR 62 BPM. HAS 2 IV ACCESS: LFA G18 SL AND R HAND G18 SL, BOTH FLUSHING WELL, PATENT & INTACT W/ NO S/SX OF INFECTION/INFILTRATION NOTED. HAS FC PATENT & INTACT W/ ADEQUATE URINE OUTPUT. ROUTINE ASSESSMENT DONE. WOUND PHOTOS TAKEN AND PLACED IN CHART. PROVIDED COMFORT & SAFETY MEASURES. BED KEPT LOW & IN LOCKED POS. CALL LIGHT PLACED W/IN REACH. WILL CONTINUE TO MONITOR & ATTEND PT'S NEEDS. PT SEEN & EXAMINED BY DR. BOWER W/ ORDERS MADE & CARRIED OUT. PT SEEN & EXAMINED BY DR. RAM. ABG RESULT SEEN BY C/O RT.
[2017-04-05] MEDS ORDERED: IPRATROPIUM NEB FS 0.5 MG/2.5 ML AMPUL.NEB NEB PRN (09:30)
[2017-04-05] MEDS ORDERED: ACETAMINOPHEN 650 MG/20.3 ML UDC NG PRN (09:30)
[2017-04-05] MEDS ORDERED: DEXTROSE 50%-WATER 50 ML DISP.SYRIN IV PRN (09:30)
[2017-04-05] MEDS ORDERED: ONDANSETRON HCL/PF 4 MG/2 ML VIAL IV PRN (09:30)
[2017-04-05] MEDS ORDERED: ALBUTEROL FS 2.5 MG/0.5 ML VIAL.NEB NEB PRN (09:30)
[2017-04-05] MEDS: hydrALAZINE HCL 50 MG TABLET PO SCH ×3 (09:47→17:22)
[2017-04-05 10:34] LABS: ABG BASE EXCESS 3.2 mmol/L; ABG OXYGEN SATURATION 88.7 % (92.0-98.5); ABG PCO2 43.1 mmHg (35.0-45.0); ABG PH 7.429 (7.350-7.450); ABG PO2 58.8 mmHg (75.0-100.0); AaDO2 176.8 mmHg; COHb 0.3 % (0.5-1.5); O2Hb 87.5 % (94.0-97.0); SITE, ABG Right Radial
[2017-04-05] MEDS ORDERED: ISOSORBIDE DINITRATE (10MG) 10 MG TABLET PO SCH ×2 (11:00→17:00)
[2017-04-05] MEDS: AMLODIPINE BESYLATE 10 MG TABLET PO SCH (11:09)
--- NOTE | 2017-04-05 11:38 | NUR ---
RN NOTES: CALLED PT'S DTR JURGEN AND INFORMED HER TO BRING ELIQUIS (NON FORMULARY MED). DTR TO BRING. Addendum: 04/05/17 at 1438 by CASH CHRISTIE RN 1200h CALLED PHARMACY TO INFORM THEM THAT PT'S DTR STILL NOT HERE RE: ELIQUIS. PHARMACY TO PROVIDE. 1400h CALLED PHARMACY AGAIN TO FOLLOW UP FOR THE ELIQUIS DUE AT 11AM. MADE THEM AWARE THAT PT'S DTR JUST BROUGHT PT'S ELIQUIS 5MG. SPOKE W/ FINA, CONFIRMED PHARMACY TO PROVIDE ELIQUIS AND TO HOLD THE 5PM DOSE DUE TO DELAYED SENDING OF MEDICATION SUPPOSEDLY SCHED AT 11AM.
[2017-04-05] MEDS ORDERED: Medication Not On Formulary EA (Blood Sugar Diagnostic, Drum (Accu-Chek Compact) 1 EACH) IN SCH (12:00)
[2017-04-05] MEDS: BLOOD SUGAR DIAGNOSTIC 1 EACH STRIP IN SCH ×3 (12:09→21:27)
[2017-04-05] MEDS: INSULIN REGULAR, HUMAN 100 UNIT/ML 3 ML VIAL SQ PRN ×2 (12:12→17:05)
[2017-04-05] MEDS: ALBUTEROL HALF STRENGTH 1.25 MG/3 ML VIAL.NEB NEB SCH ×2 (13:30→20:00)
[2017-04-05] MEDS: IPRATROPIUM NEB FS 0.5 MG/2.5 ML AMPUL.NEB NEB SCH ×2 (13:30→20:00)
[2017-04-05] MEDS: ALPRAZOLAM 0.25 MG TABLET PO PRN ×2 (13:38→17:53)
--- NOTE | 2017-04-05 13:41 | NUR ---
PT REFUSED HHN TX AT THIS TIME S/P CHEST PAIN
--- NOTE | 2017-04-05 13:42 | NUR ---
RN NOTES: PT C/O MIDSTERNAL CHEST DISCOMFORT/TIGHTNESS -12/01, NON RADIATING. ECG ORDERED. Addendum: 04/05/17 at 1359 by CASH CHRISTIE RN ECG SHOWED CONTROLLED A.FLUTTER. DR. CARABALLO MADE AWARE W/ ORDERS TO STOP NITROPATCH AND INCREASE DOSE/FREQUENCY OF ISORDIL TO 40 MG PO BID.
--- NOTE | 2017-04-05 14:54 | NUR ---
RN NOTES: PT C/O CHEST PAIN 01/01, ON TELEMONITOR STILL A.FLUTTER W/ HR 97, BP 138/61. DR. CARABALLO MADE AWARE W/ ORDERS TO DC ISORDIL PO MED. START IV NTG TITRATE TO PAIN FREE OR SBP 100.
[2017-04-05] MEDS ORDERED: NTG 50 MG/D5W250 ML BOTTL 250 ML IV PRN (15:00)
[2017-04-05] MEDS: APIXABAN 2.5 MG TABLET PO SCH ×2 (15:06→16:25)
--- NOTE | 2017-04-05 16:47 | NUR ---
RN NOTES: ANTONIO SCHED AT 1700H HELD DUE TO 11AM DOSE WAS GIVEN LATE DUE TO DELAYED DELIVERY BY PHARMACY.
--- NOTE | 2017-04-05 19:00 | NUR ---
STORAGE FACILITY HOUSEKEEPER CLOSING NOTES: PT VERBALIZED CHEST PAIN SUBSIDED TO 5-6/10. ON IV NTG AT 18 MCG/MIN ON LFA G18 AT THIS TIME. BP MONITORED CLOSELY. PT TOLERATED NC AT 5LPM, SATING AT 95%, STILL ORTHOPNEIC. ON TELEMONITOR, STILL AFLUTTER (CONTROLLED). IV LINE ACCESS KEPT PATENT & INTACT W/ NO S/SX OF INFECTION/INFILTRATION NOTED. FC KEPT INTACT & PATENT. PT KEPT WELL RESTED. NEEDS ATTENDED. BED KEPT LOW & IN LOCKED POS. CALL LIGHT W/IN REACH. DTR AT BEDSIDE. ENDORSED TO PM RN FOR DULCE.
--- NOTE | 2017-04-05 20:43 | NUR ---
received pt from day shift, a/o x4, follows commands, A flutter, receiving nitro drip at 18mcg, on 5L 02 sat well, lungs partially congested, no edema, tolerates diet, v/s stable, c/o chest pain, MD electronic warfare specialist called orders received and carried out, pt turned and repositioned.
[2017-04-05] MEDS ORDERED: MORPHINE SULFATE INJ 2 MG/ML DISP.SYRIN IV PRN (21:00)
[2017-04-05] MEDS ORDERED: MORPHINE SULFATE INJ 4 MG/ML DISP.SYRIN ONE (21:02)
[2017-04-05] MEDS ORDERED: MEROPENEM 500 MG VIAL IV ONE (21:04)
[2017-04-05] MEDS: ATORVASTATIN 10 MG TABLET PO SCH (21:27)
[2017-04-06] VITALS (42 sets, daily range): BP systolic 92–160; BP diastolic 37–88
--- NOTE | 2017-04-06 00:34 | NUR ---
pt is resting in the bed, alert, follows commands, on NGT at 21mcg, simple mask at 6L, sat well, v/s stable, no pain, pt turned and repositioned q2hrs.
[2017-04-06] MEDS: ALBUTEROL HALF STRENGTH 1.25 MG/3 ML VIAL.NEB NEB SCH ×4 (01:51→20:23)
[2017-04-06] MEDS: IPRATROPIUM NEB FS 0.5 MG/2.5 ML AMPUL.NEB NEB SCH ×4 (01:51→20:23)
--- NOTE | 2017-04-06 04:43 | NUR ---
pt is resting in the bed, no acute distress overnight, a/o x4, A flutter controlled, receiving NTG at 22mcg, on simple mask at 6L , sat well, good urine output, v/s stable, no pain, pt cleaned, changed and repositioned q2hrs.
[2017-04-06 04:54] LABS: BASOPHILS % (AUTO) 0.4 % (0.0-2.0); EOSINOPHILS # (AUTO) 0.2 /CMM (0.0-0.7); EOSINOPHILS % (AUTO) 2.1 % (0.0-6.0); HEMATOCRIT 33 % (33-45); HEMOGLOBIN 10.2 g/dL (11.5-14.8); LYMPHOCYTES # (AUTO) 0.9 /CMM (0.8-4.8); LYMPHOCYTES % (AUTO) 11.5 % (20.0-44.0); MEAN CORPUSCULAR HEMOGLOBIN 29 PG (26.0-33.0); MEAN CORPUSCULAR HGB CONC 31 g/dl (31.0-36.0); MEAN CORPUSCULAR VOLUME 92 fL (82-100); MONOCYTES # (AUTO) 0.7 /CMM (0.1-1.30); MONOCYTES % (AUTO) 8.8 % (2.0-12.0); NEUTROPHILS # (AUTO) 5.8 /CMM (1.8-8.9); NEUTROPHILS % (AUTO) 77.2 % (43.0-81.0); PLATELET COUNT (AUTO) 136 /CMM (150-450); RDW COEFFICIENT OF VARIATION 16.9 (11.5-15.0); RED BLOOD CELL COUNT(AUTO) 3.55 MIL/uL (4.0-5.2); WHITE BLOOD COUNT (AUTO) 7.5 K/uL (4.3-11.0)
[2017-04-06 05:12] LABS: CALCIUM, SERUM 9.1 mg/dL (8.5-10.1); CARBON DIOXIDE 30 mmol/L (21-32); CHLORIDE 103 mmol/L (98-107); GLUCOSE 174 mg/dL (74-106); PHOSPHORUS 4.2 mg/dL (2.5-4.9); POTASSIUM 3.6 mmol/L (3.5-5.1); SODIUM SERUM 144 mmol/L (136-145); UREA NITROGEN, BLOOD 45 mg/dL (7-18)
--- NOTE | 2017-04-06 07:30 | NUR ---
ICU/RN: Pt received in bed, on simple mask at 6L/min, breathing even and unlabored. A&Ox4, states that she's unable to lay flat, c/o SOB with exertion. IV HL x2 flushed and patent. FC draining clear yellow urine to gravity. Safety measures in place. Oriented to POC and unit. Verbalized understanding. Will cont to monitor pt.
[2017-04-06 07:46] LABS: IRON, SERUM 39 ug/dl (50-175); TOTAL IRON BINDING CAPACITY 384 ug/dl (250-450)
[2017-04-06] MEDS ORDERED: BUMETANIDE INJ 16 MG in IV NS 0.9% 16 ML IV ONE (08:00)
[2017-04-06] MEDS: hydrALAZINE HCL 50 MG TABLET PO SCH ×3 (08:12→17:16)
[2017-04-06] MEDS: BLOOD SUGAR DIAGNOSTIC 1 EACH STRIP IN SCH ×4 (08:13→20:57)
[2017-04-06] MEDS: POTASSIUM CHLORIDE 20 MEQ TAB.PRT.SR PO SCH ×3 (08:13→10:21)
[2017-04-06] MEDS: APIXABAN 2.5 MG TABLET PO SCH (08:13)
[2017-04-06 08:16] LABS: FERRITIN 26 ng/mL (8-388); THYROID STIMULATING HORMONE 0.194 uIU/mL (0.358-3.74); TROPONIN I < 0.017 ng/mL (0.00-0.056)
[2017-04-06] MEDS: INSULIN REGULAR, HUMAN 100 UNIT/ML 3 ML VIAL SQ PRN ×4 (08:16→20:51)
[2017-04-06] MEDS: CARVEDILOL 12.5 MG TABLET PO SCH ×2 (08:32→20:30)
[2017-04-06] MEDS: AMLODIPINE BESYLATE 10 MG TABLET PO SCH (08:32)
[2017-04-06] MEDS: ISOSORBIDE MONONITRATE (30MG) 30 MG TAB.SR.24H PO SCH (09:00)
[2017-04-06] MEDS ORDERED: ISOSORBIDE DINITRATE (20MG) 20 MG TABLET PO SCH (09:00)
--- NOTE | 2017-04-06 09:00 | NUR ---
ICU/RN: Pt refusing all BP meds except for Hydralazine. States "When I take it all together at home my BP drops down. I take one at a time and take it from there." Educated pt on meds and disease process. Continues to refuse.
--- NOTE | 2017-04-06 09:10 | NUR ---
ICU/RN: Dr Yousif at bedside, consult requested by Dr. Garcia for possible cardiac cath. Questions answered by MD, pt for possible cardiac cath on . Pt agreeable.
--- NOTE | 2017-04-06 09:30 | NUR ---
ICU/RN: F/U'd up 0800 Bumex dose with Rx. Spoke with Alexandra Lozoya "We're mixing it. We'll send it to you."
[2017-04-06] MEDS: ASPIRIN 81 MG TAB.CHEW PO SCH (10:21)
--- NOTE | 2017-04-06 13:25 | NUR ---
ICU/RN: Dr Shearer at bedside. POC discussed with pt. Updated on status. New orders noted and carried out.
--- NOTE | 2017-04-06 15:00 | NUR ---
ICU/RN: Pt found in room attempting to manually disimpact self. Noted with hemorrhoids. IV on L FA pulled out. New IV inserted L hand #20. Educated pt on use of call light. Verbalized understanding. Hygienic care rendered. Pt exhibits SOB with exertion. Comfort measures provided. Will cont to monitor pt
[2017-04-06] MEDS: ALPRAZOLAM 0.25 MG TABLET PO PRN (20:27)
[2017-04-06] MEDS: ATORVASTATIN 10 MG TABLET PO SCH (20:28)
--- NOTE | 2017-04-06 21:00 | NUR ---
CYLINDER STEAMER - REC'D VERBAL REPORT FROM ELVIS Guerrero REC'D PT. A&OX 4, PT. CAN EXPRESS NEEDS & WANTS WELL. PT.IS USING CALL APARICIO. PT.ADM. PM MEDS W/XANAX 0.25MG/PO AT PT'S REQUEST. BS = #300. PT. COVERED W/6UNITS OF REG. INSULIN/SQ. LYNN CATH TO GRAVITY W/ GOOD UOP. AFEBRILE. ALL PULSES PALPABLE X 4 EXT. BUMEX GTT. FINISHED. ALL PIV'S ARE PATENT TO FLUSH. HEART MONITOR SHOWS AFLUTTER/CONT. SBP'S ARE WNL. PT.IS ON O2/6L- NC. PT.IS ALSO ON A 1500 CC FLUID RESTRICTION. PT.IS FULLY AWARE OF THIS. CONT. POC.
[2017-04-07] VITALS (22 sets, daily range): BP systolic 90–154; BP diastolic 41–98
--- NOTE | 2017-04-07 | NUR ---
MOTOR COACH OPERATOR - NO CHANGES FROM INITIAL ASSESSMENT. LILLY AREA CHECKED. PT.IS CDI. PT.IS NOW RESTING W/EYES CLOSED. CONT. POC.
[2017-04-07] MEDS: ALBUTEROL HALF STRENGTH 1.25 MG/3 ML VIAL.NEB NEB SCH ×4 (01:30→19:55)
[2017-04-07] MEDS: IPRATROPIUM NEB FS 0.5 MG/2.5 ML AMPUL.NEB NEB SCH ×4 (01:30→19:55)
[2017-04-07 04:41] LABS: BASOPHILS % (AUTO) 0.3 % (0.0-2.0); EOSINOPHILS # (AUTO) 0.1 /CMM (0.0-0.7); EOSINOPHILS % (AUTO) 1.8 % (0.0-6.0); HEMATOCRIT 35 % (33-45); HEMOGLOBIN 11.4 g/dL (11.5-14.8); LYMPHOCYTES # (AUTO) 1.3 /CMM (0.8-4.8); LYMPHOCYTES % (AUTO) 15.2 % (20.0-44.0); MEAN CORPUSCULAR HEMOGLOBIN 29 PG (26.0-33.0); MEAN CORPUSCULAR HGB CONC 32 g/dl (31.0-36.0); MEAN CORPUSCULAR VOLUME 90 fL (82-100); MONOCYTES # (AUTO) 0.8 /CMM (0.1-1.30); MONOCYTES % (AUTO) 9.2 % (2.0-12.0); NEUTROPHILS # (AUTO) 6.1 /CMM (1.8-8.9); NEUTROPHILS % (AUTO) 73.5 % (43.0-81.0); PLATELET COUNT (AUTO) 170 /CMM (150-450); RDW COEFFICIENT OF VARIATION 17.2 (11.5-15.0); RED BLOOD CELL COUNT(AUTO) 3.94 MIL/uL (4.0-5.2); WHITE BLOOD COUNT (AUTO) 8.3 K/uL (4.3-11.0)
[2017-04-07 04:59] LABS: ALANINE AMINOTRANSFERASE 19 U/L (12-78); ALBUMIN 3.4 g/dL (3.4-5.0); ALKALINE PHOSPHATASE 82 U/L (46-116); ASPARTATE AMINOTRANSFERASE 16 U/L (15-37); BILIRUBIN,TOTAL 0.8 mg/dL (0.2-1.0); CALCIUM, SERUM 9.5 mg/dL (8.5-10.1); CARBON DIOXIDE 35 mmol/L (21-32); CHLORIDE 101 mmol/L (98-107); GLUCOSE 108 mg/dL (74-106); MAGNESIUM 2.2 mg/dL (1.8-2.4); PHOSPHORUS 4.3 mg/dL (2.5-4.9); POTASSIUM 3.8 mmol/L (3.5-5.1); SODIUM SERUM 143 mmol/L (136-145); TOTAL PROTEIN, SERUM 7.7 g/dL (6.4-8.2); UREA NITROGEN, BLOOD 49 mg/dL (7-18)
[2017-04-07 05:01] LABS: TROPONIN I < 0.017 ng/mL (0.00-0.056)
--- NOTE | 2017-04-07 06:59 | NUR ---
MORNING NANNY - PT. SAT IN BEDSIDE CHAIR WHILE RN CHANGED LINENS. PT. DID HER OWN ORAL CARE WHILE RN DID ADL'S. PT. TOLERATED WELL. PT. TOLERATED FLUID RESTRICTION WELL. AFLUTTER CONT. AM LABS DRAWN-PENDING RESULTS. TOTAL UOP/LYNN/12 HR. SHIFT = 1350 CC. VERBAL REPORT GIVEN TO MIKE Guerrero CONT.POC.
[2017-04-07] MEDS ORDERED: POTASSIUM CHLORIDE 20 MEQ TAB.PRT.SR PO SCH (08:00)
--- NOTE | 2017-04-07 08:00 | NUR ---
REPLENISHMENT BUYER; ASSESSMENT RECEIVED PT AWAKE AND ORIENTED X4. PT DENIES ANY PAIN OR SOB AT THIS TIME. SEEN BY DR. RASHMI GRAY TO TRANSFER PT TO TELEMETRY UNIT. LYNN CATH INTACT DRAINING TO GRAVITY CLEAR YELLOW URINE. PT DOES NOT WANT LYNN TO BE DISCONTINUED DISCUSSED THAT PT HAS HIGHER CHANGE OF UTI, PT UNDERSTANDS BUT WILL LIKE TO KEEP LYNN IN. BED SET TO LOWER SETTINGS. CALL LIGHT WITH IN REACH. WILL CONTINUE WITH POC
[2017-04-07] MEDS ORDERED: POTASSIUM CHLORIDE 20 MEQ POWDER PACKET PO ONE (08:30)
[2017-04-07] MEDS: BLOOD SUGAR DIAGNOSTIC 1 EACH STRIP IN SCH ×4 (08:31→22:11)
[2017-04-07] MEDS: hydrALAZINE HCL 50 MG TABLET PO SCH ×3 (09:00→17:00)
[2017-04-07] MEDS: AMLODIPINE BESYLATE 10 MG TABLET PO SCH (09:00)
[2017-04-07] MEDS ORDERED: acetaZOLAMIDE SODIUM 500 MG/VIAL VIAL IV ONE (09:00)
[2017-04-07] MEDS: ISOSORBIDE MONONITRATE (30MG) 30 MG TAB.SR.24H PO SCH ×2 (09:00→09:03)
[2017-04-07] MEDS: ASPIRIN 81 MG TAB.CHEW PO SCH (09:02)
[2017-04-07] MEDS: CARVEDILOL 12.5 MG TABLET PO SCH ×2 (09:02→21:00)
[2017-04-07] MEDS: INSULIN REGULAR, HUMAN 100 UNIT/ML 3 ML VIAL SQ PRN ×3 (11:50→22:12)
[2017-04-07] MEDS: ACETAMINOPHEN 325 MG TABLET PO PRN (14:29)
--- NOTE | 2017-04-07 15:53 | NUR ---
CORROSION TECHNICIAN; PAIN PT C/O LOWER BACK PAIN 11/01 TYLENOL GIVEN ORDERED AT 1430. RE-ASSESSED PT PAIN LEVEL NOW 07/04. PT HAS HISTORY OF CHRONIC BACK PAIN. WILL CONTINUE TO MONITOR CLOSELY.
[2017-04-07] MEDS: SOD FERRIC GLUC 125 MG in IV NS 0.9% 100 ML IV SCH (15:57)
--- NOTE | 2017-04-07 18:15 | NUR ---
BASTER HAND; TRANSFER TRANSFER PT TO 3W TELEMETRY VIA WHEELCHAIR WITH ACLS PROTOCOL. REPORT GIVEN TO VELASQUEZ CHAUDHRY FOR DULCE.
--- NOTE | 2017-04-07 18:35 | NUR ---
RN NOTES RECEIVED PATIENT AWAKE ALERT AND VERBALLY RESPONSIVE.COMFORTABLY IN BED. RESPIRATIONS EVEN AND UNLABORED, DENIES ANY PAIN OR DISCOMFORT AT THIS TIME,ABLE TO MAKE NEEDS KNOWN, . IV SITES PATENT AND INTACT NO REDNESS OR INFILTRATION NOTED, KEPT CLEAN DRY AND COMFORTABLE, CALL LIGHT WITHIN EASY REACH, WILL ENDORSE TO NEXT SHIFT FOR CONTINUITY OF CARE
--- NOTE | 2017-04-07 19:20 | NUR ---
TELE/RN NOTES RECEIVED PT. LYING IN BED. AWAKE, ALERT AND ORIENTED X3. BREATHING EVEN AND UNLABORED ON 2LPM O2 VIA NC. NO SOB, RESPIRATORY DISTRESS OR COMPLAINTS OF PAIN NOTED AT THIS TIME. NO COMPLAINTS OF CHEST PAIN NOTED AT THIS TIME. PT. WITH EXTERNAL CERAMIC SAW TENDER PRESENT AND INTACT. CURRENT RHYTHM = A FLUTTER HR 66. PT. WITH LEFT HAND 20 GAUGE IV SALINE LOCK PRESENT, PATENT AND INTACT. PT. WITH RIGHT HAND 18 GAUGE IV SALINE LOCK PRESENT, PATENT AND INTACT. PT. WITH LYNN CATHETER PRESENT, PATENT AND INTACT DRAINING CLEAR YELLOW URINE. BED LOCKED AND IN LOWEST POSITION. SIDE RAILS UP X2, CALL LIGHT WITHIN REACH, WILL CONTINUE TO MONITOR.
[2017-04-07] MEDS: ALPRAZOLAM 0.25 MG TABLET PO PRN (21:17)
[2017-04-07] MEDS: ATORVASTATIN 10 MG TABLET PO SCH (21:17)
[2017-04-08 00:12] VITALS: BP 128/60
[2017-04-08] MEDS: ALBUTEROL HALF STRENGTH 1.25 MG/3 ML VIAL.NEB NEB SCH ×4 (01:46→19:43)
[2017-04-08] MEDS: IPRATROPIUM NEB FS 0.5 MG/2.5 ML AMPUL.NEB NEB SCH ×4 (01:46→19:43)
[2017-04-08 04:09] VITALS: BP 118/59
[2017-04-08] MEDS: ACETAMINOPHEN 325 MG TABLET PO PRN (05:17)
[2017-04-08 06:27] LABS: BASOPHILS % (AUTO) 0.4 % (0.0-2.0); EOSINOPHILS # (AUTO) 0.3 /CMM (0.0-0.7); EOSINOPHILS % (AUTO) 3.7 % (0.0-6.0); HEMATOCRIT 33 % (33-45); HEMOGLOBIN 10.5 g/dL (11.5-14.8); LYMPHOCYTES # (AUTO) 0.9 /CMM (0.8-4.8); MEAN CORPUSCULAR HEMOGLOBIN 29 PG (26.0-33.0); MEAN CORPUSCULAR HGB CONC 32 g/dl (31.0-36.0); MEAN CORPUSCULAR VOLUME 90 fL (82-100); MONOCYTES # (AUTO) 0.7 /CMM (0.1-1.30); MONOCYTES % (AUTO) 9.3 % (2.0-12.0); NEUTROPHILS # (AUTO) 5.8 /CMM (1.8-8.9); NEUTROPHILS % (AUTO) 74.6 % (43.0-81.0); PLATELET COUNT (AUTO) 153 /CMM (150-450); RED BLOOD CELL COUNT(AUTO) 3.62 MIL/uL (4.0-5.2); WHITE BLOOD COUNT (AUTO) 7.7 K/uL (4.3-11.0)
[2017-04-08 06:48] LABS: ALANINE AMINOTRANSFERASE 18 U/L (12-78); ALKALINE PHOSPHATASE 77 U/L (46-116); ASPARTATE AMINOTRANSFERASE 20 U/L (15-37); BILIRUBIN,TOTAL 0.4 mg/dL (0.2-1.0); CALCIUM, SERUM 9.2 mg/dL (8.5-10.1); CARBON DIOXIDE 30 mmol/L (21-32); CHLORIDE 102 mmol/L (98-107); CREATININE 2.1 mg/dL (0.6-1.3); GLUCOSE 133 mg/dL (74-106); MAGNESIUM 2.5 mg/dL (1.8-2.4); POTASSIUM 4.2 mmol/L (3.5-5.1); SODIUM SERUM 141 mmol/L (136-145); TOTAL PROTEIN, SERUM 6.8 g/dL (6.4-8.2); UREA NITROGEN, BLOOD 53 mg/dL (7-18)
[2017-04-08] MEDS: INSULIN REGULAR, HUMAN 100 UNIT/ML 3 ML VIAL SQ PRN ×4 (06:50→22:47)
[2017-04-08] MEDS: BLOOD SUGAR DIAGNOSTIC 1 EACH STRIP IN SCH ×4 (06:50→22:48)
--- NOTE | 2017-04-08 06:50 | NUR ---
TELE/RN NOTES PT. IS LYING IN BED. AWAKE, ALERT AND ORIENTED X3. BREATHING EVEN AND UNLABORED ON 2LPM O2 VIA NC. NO SOB, RESPIRATORY DISTRESS OR COMPLAINTS OF PAIN NOTED AT THIS TIME. NO COMPLAINTS OF CHEST PAIN NOTED AT THIS TIME AND THROUGHOUT SHIFT. PT. WITH EXTERNAL WIPING CLOTH CUTTER PRESENT AND INTACT. CURRENT RHYTHM = A FLUTTER HR 74. PT. WITH LEFT HAND 20 GAUGE IV SALINE LOCK PRESENT, PATENT AND INTACT. PT. WITH RIGHT HAND 18 GAUGE IV SALINE LOCK PRESENT, PATENT AND INTACT. PT. WITH LYNN CATHETER PRESENT, PATENT AND INTACT DRAINING CLEAR YELLOW URINE. ALL PT. NEEDS MET. BED LOCKED AND IN LOWEST POSITION. SIDE RAILS UP X2, CALL LIGHT WITHIN REACH, WILL ENDORSE TO DAYSHIFT NURSE FOR CONTINUITY OF CARE.
--- NOTE | 2017-04-08 07:15 | NUR ---
RN NOTES RECEIVED PATIENT ASLEEP IN BED, EASILY AROUSABLE DURING CARE,COMFORTABLY IN BED. RESPIRATIONS EVEN AND UNLABORED, DENIES ANY PAIN OR DISCOMFORT AT THIS TIME,ABLE TO MAKE NEEDS KNOWN, . IV SITES PATENT AND INTACT NO REDNESS OR INFILTRATION NOTED, KEPT CLEAN DRY AND COMFORTABLE, CALL LIGHT WITHIN EASY REACH, WILL CONTINUE TO MONITOR
[2017-04-08 08:00] VITALS: BP 121/61
[2017-04-08] MEDS: CARVEDILOL 12.5 MG TABLET PO SCH ×2 (09:00→21:00)
[2017-04-08] MEDS: hydrALAZINE HCL 50 MG TABLET PO SCH ×3 (09:00→16:54)
[2017-04-08] MEDS: AMLODIPINE BESYLATE 10 MG TABLET PO SCH (09:05)
[2017-04-08] MEDS: ISOSORBIDE MONONITRATE (30MG) 30 MG TAB.SR.24H PO SCH (09:06)
[2017-04-08] MEDS: ASPIRIN 81 MG TAB.CHEW PO SCH (09:06)
[2017-04-08] MEDS ORDERED: FUROSEMIDE 40 MG/4 ML VIAL IV ONE (10:00)
[2017-04-08] MEDS: SOD FERRIC GLUC 125 MG in IV NS 0.9% 100 ML IV SCH (15:16)
[2017-04-08 16:00] VITALS: BP 132/70
[2017-04-08] MEDS: ACETYLCYSTEINE 10% 3,000 MG/30 ML VIAL PO SCH (17:00)
--- NOTE | 2017-04-08 17:00 | NUR ---
RN NOTES PT REFUSING HYDRALAZINE AT 1300 AND 1700 PER PT AFRAID BP WILL DROP, NURSING EDUCATION REINFORCED MD AWARE WILL CONTINUE TO MONITOR
--- NOTE | 2017-04-08 18:00 | NUR ---
RN NOTES NOTIFIED RT ABOUT MUCOMY[facility] ORDER, RT NAN WILL FOLLOW UP
--- NOTE | 2017-04-08 18:51 | NUR ---
RN NOTES PATIENT AWAKE IN BED ,COMFORTABLY IN BED. RESPIRATIONS EVEN AND UNLABORED, DENIES ANY PAIN OR DISCOMFORT AT THIS TIME,ABLE TO MAKE NEEDS KNOWN, . IV SITEV PATENT AND INTACT NO REDNESS OR INFILTRATION NOTED, KEPT CLEAN DRY AND COMFORTABLE, CALL LIGHT WITHIN EASY REACH, WILL CONTINUE TO MONITOR AND ENDORSE TO NEXT SHIFT FOR CONTINUITY OF CARE
--- NOTE | 2017-04-08 19:20 | NUR ---
MS/RN NOTES RECEIVED PT. LYING IN BED. AWAKE, ALERT AND ORIENTED X3. BREATHING EVEN AND UNLABORED ON 2LPM O2 VIA NC. NO SOB, RESPIRATORY DISTRESS OR COMPLAINTS OF PAIN NOTED AT THIS TIME. NO COMPLAINTS OF CHEST PAIN NOTED AT THIS TIME. PT. WITH IV SALINE LOCK PRESENT, PATENT AND INTACT. PT. WITH LYNN CATHETER PRESENT, PATENT AND INTACT DRAINING CLEAR YELLOW URINE. BED LOCKED AND IN LOWEST POSITION, SIDE RAILS UP X3, BED ALARM ON, CALL LIGHT WITHIN REACH, WILL CONTINUE TO MONITOR.
[2017-04-08 20:00] VITALS: BP 132/62
[2017-04-08] MEDS: ATORVASTATIN 10 MG TABLET PO SCH (21:20)
[2017-04-08] MEDS: ALPRAZOLAM 0.25 MG TABLET PO PRN (21:20)
--- NOTE | 2017-04-08 22:09 | NUR ---
MS/RN NOTES SPOKE WITH DR. SCHAFFER TO CLARIFY PT. DIET. PT. WILL BE GOING FOR CARDIAC CATH TOMORROW AT [facility]. PER DR. SCHAFFER PT. IS OK TO HAVE VERY LIGHT BREAKFAST LIKE A BANANA OR TOAST AROUND 7AM AND PT. IS TO BE NPO AFTER 8 AM. WILL CARRY OUT ORDERS. WILL CONTINUE TO MONITOR.
[2017-04-09] MEDS: IPRATROPIUM NEB FS 0.5 MG/2.5 ML AMPUL.NEB NEB SCH ×3 (01:36→13:30)
[2017-04-09] MEDS: ALBUTEROL HALF STRENGTH 1.25 MG/3 ML VIAL.NEB NEB SCH ×3 (01:36→13:30)
--- NOTE | 2017-04-09 06:27 | NUR ---
MS/RN NOTES PT. IS LYING IN BED. AWAKE, ALERT AND ORIENTED X3. BREATHING EVEN AND UNLABORED ON 2LPM O2 VIA NC. NO SOB, RESPIRATORY DISTRESS OR COMPLAINTS OF PAIN NOTED AT THIS TIME AND THROUGHOUT SHIFT. PT. WITH IV SALINE LOCK PRESENT, PATENT AND INTACT. PT. WITH LYNN CATHETER PRESENT, PATENT AND INTACT DRAINING CLEAR YELLOW URINE. ALL PT. NEEDS MET. PER DR. SCHAFFER PT. CAN EAT LIGHT BREAKFAST TODAY AND IS TO BE NPO AFTER 8AM. PT. WILL BE PICKED UP VIA [employer] AT 1130. PT. CARDIAC CATH IS SCHEDULED FOR 1400 AT [facility]. BED LOCKED AND IN LOWEST POSITION, SIDE RAILS UP X3, BED ALARM ON, CALL LIGHT WITHIN REACH, WILL ENDORSE TO DAYSHIFT NURSE FOR CONTINUITY OF CARE.
[2017-04-09 06:31] LABS: BASOPHILS % (AUTO) 0.2 % (0.0-2.0); EOSINOPHILS # (AUTO) 0.4 /CMM (0.0-0.7); HEMATOCRIT 31 % (33-45); LYMPHOCYTES % (AUTO) 14.6 % (20.0-44.0); MEAN CORPUSCULAR HEMOGLOBIN 29 PG (26.0-33.0); MEAN CORPUSCULAR HGB CONC 32 g/dl (31.0-36.0); MEAN CORPUSCULAR VOLUME 90 fL (82-100); MONOCYTES # (AUTO) 0.7 /CMM (0.1-1.30); MONOCYTES % (AUTO) 10.4 % (2.0-12.0); NEUTROPHILS % (AUTO) 69.8 % (43.0-81.0); PLATELET COUNT (AUTO) 150 /CMM (150-450); RED BLOOD CELL COUNT(AUTO) 3.46 MIL/uL (4.0-5.2); WHITE BLOOD COUNT (AUTO) 7.2 K/uL (4.3-11.0)
[2017-04-09 06:52] LABS: ALANINE AMINOTRANSFERASE 16 U/L (12-78); ALBUMIN 2.9 g/dL (3.4-5.0); ALKALINE PHOSPHATASE 82 U/L (46-116); ASPARTATE AMINOTRANSFERASE 14 U/L (15-37); BILIRUBIN,TOTAL 0.3 mg/dL (0.2-1.0); CALCIUM, SERUM 8.9 mg/dL (8.5-10.1); CARBON DIOXIDE 27 mmol/L (21-32); CHLORIDE 103 mmol/L (98-107); CREATININE 2.2 mg/dL (0.6-1.3); GLUCOSE 119 mg/dL (74-106); MAGNESIUM 2.3 mg/dL (1.8-2.4); PHOSPHORUS 4.4 mg/dL (2.5-4.9); POTASSIUM 3.7 mmol/L (3.5-5.1); SODIUM SERUM 140 mmol/L (136-145); TOTAL PROTEIN, SERUM 6.6 g/dL (6.4-8.2); UREA NITROGEN, BLOOD 57 mg/dL (7-18)
[2017-04-09] MEDS: BLOOD SUGAR DIAGNOSTIC 1 EACH STRIP IN SCH (06:54)
[2017-04-09] MEDS: INSULIN REGULAR, HUMAN 100 UNIT/ML 3 ML VIAL SQ PRN (06:56)
--- NOTE | 2017-04-09 07:24 | NUR ---
MS RN OPENING NOTES RECEIVED PATIENT IN STABLE CONDITION. PATIENT IS RESTING IN BED. CALL LIGHT IS WITHIN REACH. BEDSIDE RAILS ARE UP X2. BED IS LOCKED AND LOWERED. WILL CONTINUE TO MONITOR.
[2017-04-09] MEDS ORDERED: IV NS 0.9% 1,000 ML IV PRN (07:28)
[2017-04-09 08:00] VITALS: BP 138/71
[2017-04-09] MEDS: AMLODIPINE BESYLATE 10 MG TABLET PO SCH (08:44)
[2017-04-09] MEDS: CARVEDILOL 12.5 MG TABLET PO SCH (08:44)
[2017-04-09] MEDS: ISOSORBIDE MONONITRATE (30MG) 30 MG TAB.SR.24H PO SCH (08:44)
[2017-04-09] MEDS: ACETYLCYSTEINE 10% 3,000 MG/30 ML VIAL PO SCH (08:44)
[2017-04-09] MEDS: ASPIRIN 81 MG TAB.CHEW PO SCH (08:44)
[2017-04-09] MEDS: hydrALAZINE HCL 50 MG TABLET PO SCH (08:44)
--- NOTE | 2017-04-09 08:45 | NUR ---
MEDICATION NOT GIVEN DUE TO PATIENT NPO SCHEDULED FOR A PROCEDURE AT [facility] [place].
--- NOTE | 2017-04-09 10:21 | NUR ---
SPOKE TO HTOMAS MURRAY NURSE FROM [facility] MANAGER PROGRAM MANAGEMENT AND GAVE HER REPORT. [phone]
--- NOTE | 2017-04-09 11:30 | NUR ---
PATIENT WAS TAKEN VIA AMBULANCE TO [address] NURSE MONITORING PROCEDURE.
== END 2017-04-09 18:40 | disposition short-term general hospital (02) | DRG 291 ==
LOC: ER 06:03 → ICU 08:21 → MED 04-07 18:32 → TELE 04-07 18:53 → MED 04-08 11:35
PROVIDERS: ADMIT Internal Medicine Nephrology; ATTEND Internal Medicine Nephrology
DX: I13.0 Hypertensive heart and chronic kidney disease with heart failure and stage 1 through stage 4 chronic kidney disease, or unspecified chronic kidney disease (principal); I50.33 Acute on chronic diastolic (congestive) heart failure; J96.01 Acute respiratory failure with hypoxia; N17.9 Acute kidney failure, unspecified; I48.92 Unspecified atrial flutter; I48.91 Unspecified atrial fibrillation; E11.22 Type 2 diabetes mellitus with diabetic chronic kidney disease; E11.51 Type 2 diabetes mellitus with diabetic peripheral angiopathy without gangrene; J44.9 Chronic obstructive pulmonary disease, unspecified; N18.9 Chronic kidney disease, unspecified; E78.5 Hyperlipidemia, unspecified; Z98.61 Coronary angioplasty status; I25.10 Atherosclerotic heart disease of native coronary artery without angina pectoris; Z85.3 Personal history of malignant neoplasm of breast; Z88.2 Allergy status to sulfonamides; Z91.048 Other nonmedicinal substance allergy status; Z79.4 Long term (current) use of insulin; Z79.899 Other long term (current) drug therapy; I70.0 Atherosclerosis of aorta; Z87.891 Personal history of nicotine dependence
CPT/HCPCS: 36415; 36600; 71010-TC; 80048-TC; 80053-TC; 80076-TC; 82728-TC; 82962-TC; 83540-TC; 83735-TC; 83880; 84100-TC; 84439-TC; 84443-TC; 84484-TC; 85025-TC; 85730-TC; 87081-TC; 94799-TC; A4216; J1120; J1815; J1940; J2185; J2270; J2916; J3490; J7030; Z7610

== ENCOUNTER 2017-04-30 22:34 | Inpatient (IN) | payer MEDICARE, OTHER ==
[~2017-04-30] VITALS: Ht 152.4 cm; Wt 54.4 kg
--- NOTE | 2017-04-30 22:40 | NUR ---
PT ERIKA FROM HOME, PT A/OX4, PT STATES SHE IS HVAING LEFT SIDED ABD PAIN AND SOB, PT WAS PLACED ON A NON REBREATHER ACID PURIFIER, PT STATES SHE JUST GOT A STENT PLACED A FEW WEEKS AGO BUT DENIES CP AT THIS TIME, PT IS ON MONITOR, IV PLACED, LABS DRAWN, MD IN ROOM WILL CONTINUE TO MONITOR.
[2017-04-30] MEDS ORDERED: ALBUTEROL FS 2.5 MG/0.5 ML VIAL.NEB NEB ONE (23:00)
[2017-04-30] MEDS ORDERED: FUROSEMIDE 40 MG/4 ML VIAL IV ONE (23:00)
[2017-04-30] MEDS ORDERED: FUROSEMIDE 40 MG/4 ML VIAL ONE (23:09)
[2017-04-30 23:21] LABS: BASOPHILS % (AUTO) 0.4 % (0.0-2.0); EOSINOPHILS # (AUTO) 1.9 /CMM (0.0-0.7); EOSINOPHILS % (AUTO) 28.5 % (0.0-6.0); HEMATOCRIT 33 % (33-45); HEMOGLOBIN 10.3 g/dL (11.5-14.8); LYMPHOCYTES # (AUTO) 0.9 /CMM (0.8-4.8); LYMPHOCYTES % (AUTO) 13.7 % (20.0-44.0); MEAN CORPUSCULAR HEMOGLOBIN 27 PG (26.0-33.0); MEAN CORPUSCULAR HGB CONC 31 g/dl (31.0-36.0); MEAN CORPUSCULAR VOLUME 89 fL (82-100); MONOCYTES # (AUTO) 0.4 /CMM (0.1-1.30); MONOCYTES % (AUTO) 6.3 % (2.0-12.0); NEUTROPHILS # (AUTO) 3.3 /CMM (1.8-8.9); NEUTROPHILS % (AUTO) 51.1 % (43.0-81.0); PLATELET COUNT (AUTO) 144 /CMM (150-450); RDW COEFFICIENT OF VARIATION 17.9 (11.5-15.0); RED BLOOD CELL COUNT(AUTO) 3.75 MIL/uL (4.0-5.2); WHITE BLOOD COUNT (AUTO) 6.5 K/uL (4.3-11.0)
[2017-04-30 23:21] LABS: APPEARANCE,URINE CLOUDY (CLEAR); BILIRUBIN,URINE NEGATIVE (NEGATIVE); BLOOD, URINE NEGATIVE Ery/uL (NEGATIVE); COLOR,URINE YELLOW (YELLOW); KETONES,URINE NEGATIVE (NEGATIVE); LEUKOCYTE ESTERASE ,URINE NEGATIVE (NEGATIVE); NITRITE, URINE NEGATIVE (NEGATIVE); PH,URINE 5.5 (5.0-8.0); PROTEIN,URINE 2+ mg/dl (NEGATIVE); UGLUCOSE NEGATIVE (NEGATIVE); UROBILINOGEN,URINE 0.2 EU/dL (0.2)
[2017-04-30 23:29] LABS: BACTERIA,URINE None seen /HPF (None Seen); RBC,URINE 0-2 /HPF (0-2); SQUAMOUS EPITHELIAL CELL,UR Few /HPF (None Seen); WBC,URINE 0-2 /HPF (0-3)
[2017-04-30 23:30] LABS: CALCIUM, SERUM 9.2 mg/dL (8.5-10.1); CARBON DIOXIDE 26 mmol/L (21-32); CHLORIDE 109 mmol/L (98-107); GLUCOSE 135 mg/dL (74-106); POTASSIUM 5.5 mmol/L (3.5-5.1); SODIUM SERUM 144 mmol/L (136-145); UREA NITROGEN, BLOOD 45 mg/dL (7-18)
[2017-04-30 23:30] LABS: URINE AMORPHOUS URATE Many /HPF (None Seen)
[2017-04-30 23:35] LABS: INR 1.06 (0.87-1.13)
[2017-04-30 23:38] LABS: TROPONIN I < 0.017 ng/mL (0.00-0.056)
[2017-04-30 23:43] LABS: ALANINE AMINOTRANSFERASE 23 U/L (12-78); ALBUMIN 3.8 g/dL (3.4-5.0); ALKALINE PHOSPHATASE 90 U/L (46-116); ASPARTATE AMINOTRANSFERASE 19 U/L (15-37); B-TYPE NATRIURETIC PEPTIDE 2907 PG/ML (0-125); BILIRUBIN,DIRECT 0.1 mg/dL (0.0-0.2); BILIRUBIN,TOTAL 0.5 mg/dL (0.2-1.0); TOTAL PROTEIN, SERUM 7.6 g/dL (6.4-8.2)
[2017-04-30] MEDS ORDERED: AZTREONAM 1 G VIAL ONE (23:52)
[2017-05-01] VITALS (9 sets, daily range): BP systolic 107–143; BP diastolic 33–72
[2017-05-01] LABS: EOSINOPHILS % (MANUAL) 13 % (0-4); LYMPHOCYTES % (MANUAL) 8 % (16-48); MONOCYTES % (MANUAL) 11 % (0-11.0); NEUTROPHILS % (MANUAL) 68 (42-76)
[2017-05-01] MEDS ORDERED: AZTREONAM 1 G in IV NS 0.9% 100 ML IV ONE ×2
[2017-05-01] MEDS ORDERED: LEVOFLOXACIN 750 MG /D5W 150ML PIGGYBACK IV ONE
--- NOTE | 2017-05-01 00:05 | NUR ---
CALLED [facility], ON THE PHONE WITH DR GRAFF.
[2017-05-01] MEDS ORDERED: LEVOFLOXACIN 750 MG /D5W 150ML 150 ML IV ONE (01:14)
[2017-05-01] MEDS ORDERED: LEVOFLOXACIN 750 MG /D5W 150ML 750 MG in PREMIX 1 EA IV SCH (01:30)
[2017-05-01] MEDS ORDERED: INSULIN REGULAR, HUMAN 100 UNIT/ML 3 ML VIAL SQ PRN (02:30)
[2017-05-01] MEDS ORDERED: DEXTROSE 50%-WATER 50 ML DISP.SYRIN IV PRN (02:30)
[2017-05-01] MEDS ORDERED: ALPRAZOLAM 0.25 MG TABLET PO PRN ×2 (05:30→08:30)
[2017-05-01] MEDS: BLOOD SUGAR DIAGNOSTIC 1 EACH STRIP IN SCH ×4 (06:48→22:15)
[2017-05-01 06:55] LABS: TROPONIN I < 0.017 ng/mL (0.00-0.056)
[2017-05-01 06:57] LABS: ALANINE AMINOTRANSFERASE 21 U/L (12-78); ALBUMIN 3.4 g/dL (3.4-5.0); ALKALINE PHOSPHATASE 78 U/L (46-116); ASPARTATE AMINOTRANSFERASE 19 U/L (15-37); BILIRUBIN,TOTAL 0.4 mg/dL (0.2-1.0); CARBON DIOXIDE 26 mmol/L (21-32); CHLORIDE 109 mmol/L (98-107); GLUCOSE 123 mg/dL (74-106); POTASSIUM 5.3 mmol/L (3.5-5.1); SODIUM SERUM 144 mmol/L (136-145); TOTAL PROTEIN, SERUM 7.1 g/dL (6.4-8.2); UREA NITROGEN, BLOOD 44 mg/dL (7-18)
--- NOTE | 2017-05-01 07:30 | NUR ---
RN NOTES RECEIVED PT. PT IS STABLE AND SLEEPING IN BED. NO S/S OF DISTRESS. PT DOES NOT APPEAR TO BE IN PAIN. PT IS ON 10L O2 VIA MASK. IV ACCESS LOCATED ON RIGHT HAND, 18G SL. FC IN PLACE AND PATENT. SAFETY MEASURES IN PLACE, CALL LIGHT WITHIN REACH. WILL CONTINUE TO MONITOR.
[2017-05-01] MEDS ORDERED: BUMETANIDE INJ 16 MG in IV NS 0.9% 16 ML IV ONE (08:30)
[2017-05-01] MEDS ORDERED: ASPI325T2 PO (08:32)
[2017-05-01] MEDS ORDERED: CLOP75TA2 PO (08:32)
[2017-05-01] MEDS: hydrALAZINE HCL 50 MG TABLET PO SCH ×3 (09:00→17:00)
[2017-05-01] MEDS ORDERED: TRAMADOL HCL 50 MG TABLET PO SCH (09:00)
[2017-05-01] MEDS: METOLAZONE 2.5 MG TABLET PO SCH (09:00)
[2017-05-01] MEDS: CARVEDILOL 12.5 MG TABLET PO SCH ×2 (09:00→17:00)
[2017-05-01] MEDS: AMLODIPINE BESYLATE 10 MG TABLET PO SCH (09:00)
[2017-05-01] MEDS: ATORVASTATIN 10 MG TABLET PO SCH (09:18)
[2017-05-01] MEDS ORDERED: APIXABAN 5 MG TABLET PO ONE (09:30)
[2017-05-01] MEDS: FUROSEMIDE 40 MG TABLET PO SCH (09:47)
[2017-05-01] MEDS: FUROSEMIDE 40 MG/4 ML VIAL IV SCH ×3 (09:57→17:00)
[2017-05-01] MEDS ORDERED: Medication Not On Formulary EA (Blood Sugar Diagnostic, Drum (Accu-Chek Compact) 1 EACH) IN SCH (12:00)
[2017-05-01] MEDS: ISOSORBIDE DINITRATE (10MG) 10 MG TABLET PO SCH ×2 (13:12→17:12)
--- NOTE | 2017-05-01 13:30 | NUR ---
RN NOTES MORNING BP MEDICATION HELD DUE TO LOW BP OF 143/43. AM BUMEX NOT GIVEN DUE TO PHARMACY SHORTAGE. MD AWARE. WILL CONTINUE TO MONITOR.
[2017-05-01] MEDS: ALBUTEROL HALF STRENGTH 1.25 MG/3 ML VIAL.NEB NEB SCH ×3 (14:51→23:15)
[2017-05-01] MEDS: IPRATROPIUM NEB FS 0.5 MG/2.5 ML AMPUL.NEB NEB SCH ×3 (14:52→23:15)
[2017-05-01] MEDS: APIXABAN 5 MG TABLET PO SCH (17:00)
[2017-05-01] MEDS: PANTOPRAZOLE 40 MG TABLET.DR PO SCH (17:06)
--- NOTE | 2017-05-01 18:41 | NUR ---
RN NOTES AFTERNOON BP MEDS & ELIQUIS REFUSED/HELD PER PT REQUEST. BP AT 138/72, PULSE AT 115.
--- NOTE | 2017-05-01 18:42 | NUR ---
RN CLOSING NOTES PT IS AWAKE AND RESTING IN BED. NO S/S OF RESPIRATORY DISTRESS, BREATHING HAS BECOME LESS LABORED. PT HAS NO C/O PAIN/CHEST PAIN AT THIS TIME. IV ACCESS LOCATED ON RIGHT HAND 18G. F/C INTACT AND PATENT, OUTPUT OF 2800 DURING AM SHIFT. SAFETY MEASURES IN PLACE, CALL LIGHT WITHIN REACH. WILL ENDORSE TO CAR PAINTER FOR DULCE.
--- NOTE | 2017-05-01 19:38 | NUR ---
ms/rn opening notes PATIENT IN BED, HOB ELEVATED, ALERT, ORIENTED X3. ABLE TO VERBALIZE NEEDS. OBSERVED ON OXYGEN VIA FACE MASK AT 10L. WITH RT AT THIS TIME FOR BREATHING TX. PATIENT OBSERVED HAD BM AT BED SIDE COMODE. REPORTED SHE TAKES NITRO 2X DAY, AND TAKES ATIT AT NIGHT. NO CHEST PAIN AT THIS TIME, WILL F/U WITH MD FOR ORDER. CALL LIGHTS WITHIN REACH, ATTEND TO NEEDS. ON LYNN, WITH URINE OUTPUT., IV ON RIGHT HAND. WILL CONTINUE TO MONITOR. Addendum: 05/01/17 at 1950 by ILIR PADGETT RN patient inform regarding copd dx to maintain o2 sat be 89 to 92 %. will keep monitoring patient. rt therapy
--- NOTE | 2017-05-01 19:56 | NUR ---
ms/rn opening patient able to inform regarding copd as dx, requireing o2sat maintain bet 8- to 92% at 2-3L, rt breathing tx provided. no pain verbalize, will continue to monitor,
--- NOTE | 2017-05-01 20:38 | NUR ---
alvarez/rn notes received report from pharmacist need orderlab digoxin to be taken in am.
--- NOTE | 2017-05-01 21:07 | NUR ---
ms/rn notes patient reported 7/10 back pain. md inform that no prn med only routine. kayy salas ordered to change tramadol 50mg routine to prn every 6 hrs, order carried out.
[2017-05-01] MEDS ORDERED: TRAMADOL HCL 50 MG TABLET ONE (21:32)
[2017-05-01] MEDS: TRAMADOL HCL 50 MG TABLET PO PRN (21:34)
[2017-05-02] VITALS: BP 132/54
[2017-05-02] MEDS: IPRATROPIUM NEB FS 0.5 MG/2.5 ML AMPUL.NEB NEB SCH ×6 (02:42→22:36)
[2017-05-02] MEDS: ALBUTEROL HALF STRENGTH 1.25 MG/3 ML VIAL.NEB NEB SCH ×6 (02:43→22:36)
[2017-05-02 04:00] VITALS: BP 132/54
[2017-05-02] MEDS: BLOOD SUGAR DIAGNOSTIC 1 EACH STRIP IN SCH ×4 (06:28→22:24)
[2017-05-02 06:33] LABS: BASOPHILS % (AUTO) 0.1 % (0.0-2.0); EOSINOPHILS # (AUTO) 0.2 /CMM (0.0-0.7); EOSINOPHILS % (AUTO) 3.3 % (0.0-6.0); HEMATOCRIT 31 % (33-45); HEMOGLOBIN 9.7 g/dL (11.5-14.8); LYMPHOCYTES % (AUTO) 17.9 % (20.0-44.0); MEAN CORPUSCULAR HEMOGLOBIN 28 PG (26.0-33.0); MEAN CORPUSCULAR HGB CONC 32 g/dl (31.0-36.0); MEAN CORPUSCULAR VOLUME 86 fL (82-100); MONOCYTES # (AUTO) 0.7 /CMM (0.1-1.30); MONOCYTES % (AUTO) 11.6 % (2.0-12.0); NEUTROPHILS # (AUTO) 3.8 /CMM (1.8-8.9); NEUTROPHILS % (AUTO) 67.1 % (43.0-81.0); PLATELET COUNT (AUTO) 114 /CMM (150-450); RDW COEFFICIENT OF VARIATION 18.1 (11.5-15.0); RED BLOOD CELL COUNT(AUTO) 3.53 MIL/uL (4.0-5.2); WHITE BLOOD COUNT (AUTO) 5.7 K/uL (4.3-11.0)
--- NOTE | 2017-05-02 06:40 | NUR ---
PATIENT ALERT, ORIENTED X3, ABLE TO VERBALIZE NEEDS. ON 2L OXYGEN O2 SAT AT 94%.. MONITORING FOR PAIN EFFECTIVENESS. REPORTED BACK PAIN. WILL MONITOR. COOPERATIVE TO CARE, CALL LIGHTS WITHIN REACH, ABLE TO SLEEP 3 TO 5 HOURS.
[2017-05-02 06:48] LABS: ALANINE AMINOTRANSFERASE 21 U/L (12-78); ALBUMIN 3.3 g/dL (3.4-5.0); ALKALINE PHOSPHATASE 75 U/L (46-116); ASPARTATE AMINOTRANSFERASE 16 U/L (15-37); BILIRUBIN,TOTAL 0.7 mg/dL (0.2-1.0); CALCIUM, SERUM 8.9 mg/dL (8.5-10.1); CARBON DIOXIDE 32 mmol/L (21-32); CHLORIDE 104 mmol/L (98-107); CREATININE 2.1 mg/dL (0.6-1.3); GLUCOSE 92 mg/dL (74-106); PHOSPHORUS 3.9 mg/dL (2.5-4.9); POTASSIUM 3.8 mmol/L (3.5-5.1); SODIUM SERUM 143 mmol/L (136-145); TOTAL PROTEIN, SERUM 7.1 g/dL (6.4-8.2); UREA NITROGEN, BLOOD 42 mg/dL (7-18)
--- NOTE | 2017-05-02 07:00 | NUR ---
RN NOTES: PATIENT RESTING IN BED. NO SIGNS OF DISTRESS NOTED. NONLABORED BREATHING NOTED ON 3 L. PATIENT DENIES PAIN AT THE MOMENT. IV SITE PATENT AND INTACT. BED IN LOWEST LOCKED POSITION. CALL LIGHT WITHIN REACH. WILL CONTINUE TO MONITOR
[2017-05-02 07:11] LABS: TROPONIN I < 0.017 ng/mL (0.00-0.056)
[2017-05-02 08:00] VITALS: BP 129/55
[2017-05-02] MEDS: PANTOPRAZOLE 40 MG TABLET.DR PO SCH (08:32)
[2017-05-02] MEDS: ATORVASTATIN 10 MG TABLET PO SCH (08:33)
[2017-05-02] MEDS: FUROSEMIDE 40 MG TABLET PO SCH (08:33)
[2017-05-02] MEDS: METOLAZONE 2.5 MG TABLET PO SCH (08:34)
[2017-05-02] MEDS: hydrALAZINE HCL 50 MG TABLET PO SCH ×3 (08:37→16:43)
[2017-05-02] MEDS: CARVEDILOL 12.5 MG TABLET PO SCH ×2 (08:38→16:43)
[2017-05-02] MEDS: AMLODIPINE BESYLATE 10 MG TABLET PO SCH (08:39)
[2017-05-02] MEDS: ISOSORBIDE DINITRATE (10MG) 10 MG TABLET PO SCH ×2 (08:39→16:44)
[2017-05-02] MEDS ORDERED: LEVOFLOXACIN 500 MG /D5W 100ML 500 MG in PREMIX 1 EA IV SCH (09:00)
[2017-05-02] MEDS: APIXABAN 5 MG TABLET PO SCH ×2 (09:00→16:56)
--- NOTE | 2017-05-02 09:43 | NUR ---
RN NOTES: DR CARABALLO ORDERED TO TAKE LYNN CATHETER 0UT
--- NOTE | 2017-05-02 10:20 | NUR ---
RN NOTES: LYNN CATHETER TAKEN OUT. NO SIGNS OF DISTRESS. NO SIGNS OF BLEEDING NOTED. NO SIGNS OF TRAUMA NOTED. WILL CONTINUE TO MONITOR
[2017-05-02 16:00] VITALS: BP 128/61
--- NOTE | 2017-05-02 16:44 | NUR ---
RN NOTES: BP ASSESSED AND NOTED TO BE 106/50 MANUALLY. BP MEDS HELD. PATIENT STATES FEELING DIZZY AND LIGHTHEADED. BED IN LOWEST LOCKED POSITION. CALL LIGHT WITHIN REACH. LOWER EXTREMITIES ELEVATED. PATIENT EDUCATED METAL LEAF LAYER LIGHT. PATIENT VERBALIZES UNDERSTANDING
--- NOTE | 2017-05-02 17:14 | NUR ---
RN NOTES: DVT PUMPS OFFERED TO PATIENT. PATIENT AGREED AFTER REFUSAL. SLEEVES AND PUMP BROUGHT TO PATIENT'S ROOM. PATIENT REFUSED AGAIN. BENEFITS AND RISKS EXPLAINED
--- NOTE | 2017-05-02 19:29 | NUR ---
RN CLOSING NOTES: PATIENT RESTING IN BED. NO SIGNS OF DISTRESS NOTED. NONLABORED BREATHING NOTED ON 2 L. PATIENT DENIES PAIN AT THE MOMENT. IV SITE PATENT AND INTACT. BED IN LOWEST LOCKED POSITION. CALL LIGHT WITHIN REACH. PATIENT'S SPO2 ASSESS ON ROOM AIR AND NOTED TO BE 88% DURING SHIFT. PATIENT SOP2 92% ON 2L . PATIENT WAS ABLE TO AMBULATE TO BEDSIDE COMMODE WITH ASSISTANCE. NO SOB. PATIENT REFUSED TO AMBULATE STATING THAT SHE FEELS FATIGUE DUE TO INABILITY TO SLEEP THE LAST TWO NIGHTS. PATIENT KEPT CLEAN AND DRY DURING SHIFT. NO SIGNS OF ABDOMINAL DISTENTION AND URINE RETENTION. PATIENT AFEBRILE DURING SHIFT, NO COUGHING NOTED. DURING SHIFT,PATIENT TRANSFERRED TO ROOM 322-1 WITH ALL BELONGINGS. ENDORSED TO NEXT SHIFT.
[2017-05-02 20:00] VITALS: BP 129/58
[2017-05-02 22:15] VITALS: BP 137/64
--- NOTE | 2017-05-02 22:15 | NUR ---
MS/GUIDANCE CONSULTANT; BS 110 NO COVERAGE GIVEN.
--- NOTE | 2017-05-02 22:15 | NUR ---
MS/COLLEGE ADVISOR; PT ASSISTED TO THE BSC AND SHE VOIDED CLEAR YELLOW URINE 200ML. ASSISTED BACK TO BED.
--- NOTE | 2017-05-02 22:25 | NUR ---
MS/FARM FORESTRY AND GARDEN WORKERS; PT CALLED C/O BACK PAIN WITH PAIN LEVEL OF 6 OUT OF 10 AND WANTS ULTRAM. BP CHECKED 137 /64 , P 93 .
--- NOTE | 2017-05-02 22:30 | NUR ---
MS/CONSULTING TECHNICAL MANAGER; ULTRAM 50 MG 1 TAB. PO Q 6 HOURS GIVEN WITHOUT PROBLEM OF SWALLOWING.
[2017-05-02] MEDS: TRAMADOL HCL 50 MG TABLET PO PRN (22:32)
--- NOTE | 2017-05-02 23:45 | NUR ---
MS/DELVIS; NOTED PT IS AWAKE AT THIS TIME . I ASKED THE PT HOW IS THE PAIN SHE SAID THE PAIN LEVEL IS ONE OUT OF TEN.
[2017-05-03 01:00] VITALS: BP 150/80
--- NOTE | 2017-05-03 01:00 | NUR ---
MS/ASSISTANT SCIENTIST; PT WOKE UP AND ASKED WANTS HER BS TO BE RE CHECKED AND ALSO HER BP AN RN WHO HELPED ME TO RE BS WAS 155 , BP 150/ 80. PT WAS ASSISTED TO THE BSC VOIDED 150 ML CLEAR YELLOW URINE.
--- NOTE | 2017-05-03 02:00 | NUR ---
MS/FLORAL MANAGER; PT IN BED SLEEPING AT THIS TIME. BREATHING NON LABORED AND EVEN.
[2017-05-03] MEDS: ALBUTEROL HALF STRENGTH 1.25 MG/3 ML VIAL.NEB NEB SCH ×4 (03:16→14:46)
[2017-05-03] MEDS: IPRATROPIUM NEB FS 0.5 MG/2.5 ML AMPUL.NEB NEB SCH ×4 (03:16→14:46)
[2017-05-03] MEDS: BLOOD SUGAR DIAGNOSTIC 1 EACH STRIP IN SCH ×2 (05:28→12:14)
--- NOTE | 2017-05-03 05:30 | NUR ---
MS/ATTENDING PSYCHIATRIST; PT CALLED WANTS BS AND BP CHECK , SHE SAID MY STOMACH IS WEIRD. PT IS ANXIOUS. BS 129 NO COVERAGE. BP 139/57, P67, O2 SAT ON O2 2L NC 99%.
--- NOTE | 2017-05-03 05:55 | NUR ---
MS/CENTRAL MELT SPECIALIST; XANX 0.25 MG PO TID PRN GIVEN AT 0553.
--- NOTE | 2017-05-03 07:00 | NUR ---
RN NOTES: PATIENT RESTING IN BED. NONLABORED BREATHING NOTED ON 2 L NASAL CANNULA. IV SITE PATENT AND INTACT. PATIENT AOX3. PATIENT DENIES PAIN AT THE MOMENT. BED IN LOWEST LOCKED POSITION. CALL LIGHT WITHIN REACH. WILL CONTINUE TO MONITOR
--- NOTE | 2017-05-03 07:00 | NUR ---
MS/HOUSE CLEANER SUPERVISOR; PT RESTING AT THIS TIME. WILL ENDORSE TO THE DAY SHIFT NURSE.
[2017-05-03 07:49] LABS: BASOPHILS % (AUTO) 0.1 % (0.0-2.0); EOSINOPHILS # (AUTO) 0.3 /CMM (0.0-0.7); EOSINOPHILS % (AUTO) 4.5 % (0.0-6.0); HEMATOCRIT 36 % (33-45); HEMOGLOBIN 11.4 g/dL (11.5-14.8); LYMPHOCYTES # (AUTO) 0.8 /CMM (0.8-4.8); LYMPHOCYTES % (AUTO) 11.4 % (20.0-44.0); MEAN CORPUSCULAR HEMOGLOBIN 28 PG (26.0-33.0); MEAN CORPUSCULAR HGB CONC 32 g/dl (31.0-36.0); MEAN CORPUSCULAR VOLUME 86 fL (82-100); MONOCYTES # (AUTO) 0.7 /CMM (0.1-1.30); MONOCYTES % (AUTO) 10.7 % (2.0-12.0); NEUTROPHILS # (AUTO) 4.9 /CMM (1.8-8.9); NEUTROPHILS % (AUTO) 73.3 % (43.0-81.0); PLATELET COUNT (AUTO) 122 /CMM (150-450); RDW COEFFICIENT OF VARIATION 18.4 (11.5-15.0); RED BLOOD CELL COUNT(AUTO) 4.14 MIL/uL (4.0-5.2); WHITE BLOOD COUNT (AUTO) 6.6 K/uL (4.3-11.0)
[2017-05-03 08:05] LABS: CALCIUM, SERUM 9.4 mg/dL (8.5-10.1); CARBON DIOXIDE 32 mmol/L (21-32); CHLORIDE 100 mmol/L (98-107); CREATININE 2.5 mg/dL (0.6-1.3); GLUCOSE 141 mg/dL (74-106); MAGNESIUM 2.1 mg/dL (1.8-2.4); PHOSPHORUS 4.4 mg/dL (2.5-4.9); POTASSIUM 3.3 mmol/L (3.5-5.1); SODIUM SERUM 141 mmol/L (136-145); UREA NITROGEN, BLOOD 52 mg/dL (7-18)
[2017-05-03] MEDS: PANTOPRAZOLE 40 MG TABLET.DR PO SCH (08:46)
[2017-05-03] MEDS: FUROSEMIDE 40 MG TABLET PO SCH (08:47)
[2017-05-03] MEDS: METOLAZONE 2.5 MG TABLET PO SCH (08:47)
[2017-05-03] MEDS: ATORVASTATIN 10 MG TABLET PO SCH (08:47)
[2017-05-03] MEDS: CARVEDILOL 12.5 MG TABLET PO SCH (08:48)
[2017-05-03] MEDS: APIXABAN 5 MG TABLET PO SCH (08:49)
[2017-05-03] MEDS: hydrALAZINE HCL 50 MG TABLET PO SCH ×2 (08:52→12:45)
[2017-05-03] MEDS: ISOSORBIDE DINITRATE (10MG) 10 MG TABLET PO SCH (08:52)
[2017-05-03] MEDS: AMLODIPINE BESYLATE 10 MG TABLET PO SCH (08:53)
[2017-05-03] MEDS ORDERED: POTASSIUM CHLORIDE 20 MEQ POWDER PACKET GT ONE (10:30)
[2017-05-03 12:45] VITALS: BP 109/47
--- NOTE | 2017-05-03 16:04 | NUR ---
RN NOTES PATIENT DISCHARGED HOME PER MD ORDERS. PATIENT STABLE. NONLABORED BREATHING NOTED ON ROOM AIR. VS WNL. PATIENT DENIES PAIN AT THE MOMENT. IV LINE TAKEN OUT. EXISTCARE INSTRUCTIONS EDUCATED TO PATIENT. PATIENT VERBALIZED UNDERSTANDING. PRECRIPTION GIVEN TO PATIENT WELL DR CARABALLO'S OFFICE'S INFO TO FOLLOW UP WITH DR CARABALLO WITHIN 1 WEEK. VALUABLES RETURNED TO PATIENT. PATIENT TAKEN TO CAR VIA WHEELCHAIR. NO SIGNS OF DISTRESS NOTED. PATIENT LEFT WITH DAUGHTER JURGEN
== END 2017-05-03 15:55 | disposition home or self-care (01) | DRG 291 ==
LOC: ER 22:37 → TELE 05-01 00:15 → MED 05-01 08:31
PROVIDERS: ADMIT Internal Medicine Nephrology; ATTEND Internal Medicine Nephrology
DX: I13.0 Hypertensive heart and chronic kidney disease with heart failure and stage 1 through stage 4 chronic kidney disease, or unspecified chronic kidney disease (principal); N17.0 Acute kidney failure with tubular necrosis; J96.21 Acute and chronic respiratory failure with hypoxia; J90 Pleural effusion, not elsewhere classified; E11.22 Type 2 diabetes mellitus with diabetic chronic kidney disease; I27.20 Pulmonary hypertension, unspecified; N18.4 Chronic kidney disease, stage 4 (severe); I50.33 Acute on chronic diastolic (congestive) heart failure; J44.1 Chronic obstructive pulmonary disease with (acute) exacerbation; E87.5 Hyperkalemia; E11.51 Type 2 diabetes mellitus with diabetic peripheral angiopathy without gangrene; I48.0 Paroxysmal atrial fibrillation; Z99.81 Dependence on supplemental oxygen; E78.5 Hyperlipidemia, unspecified; F41.9 Anxiety disorder, unspecified; I25.10 Atherosclerotic heart disease of native coronary artery without angina pectoris; Z98.61 Coronary angioplasty status; Z87.891 Personal history of nicotine dependence; Z88.2 Allergy status to sulfonamides; Z79.01 Long term (current) use of anticoagulants
CPT/HCPCS: 36415; 71010-TC; 80048-TC; 80053-TC; 80076-TC; 81000-TC; 82550-TC; 82962-TC; 83605-TC; 83735-TC; 83880; 84100-TC; 84484-TC; 85025-TC; 85730-TC; 87040-TC; 87081-TC; 94799-TC; A4216; A4606; J1815; J1940; J1956; J3490; J7030; J7050; Z7610

== ENCOUNTER 2017-10-18 10:20 | Inpatient (IN) | payer MEDICARE, OTHER ==
[2017-10-18] VITALS (12 sets, daily range): BP systolic 108–129; BP diastolic 50–65
[~2017-10-18] VITALS: Ht 149.9 cm; Wt 54.0 kg
[~2017-10-18 10:20] MED LIST changes: -AMLO10TA2 PO; +AMLO10TA6 PO; +ASPI-992 PO; +CLOP75TA15 PO; -INSU100V26 SQ; +INSU100V30 SQ; -ISOS30TA47 PO; +ISOS30TA9 PO
--- NOTE | 2017-10-18 10:25 | NUR ---
ISAC FROM HOME DT LOWER BACK PAIN, 02/01, ACING X 2 DAYS AND LOWER ABDOMINAL PAIN. DENIES TRAUMA. PATIENT IS AWAKE AND ALERT. NOT IN DISTRESS. SKIN IS WARM TO TOUCH AND NON DIAPHORETIC, AFEBRILE. DENIES N/V/D. VSS.
[2017-10-18] MEDS ORDERED: ONDANSETRON HCL/PF 4 MG/2 ML VIAL ONE (10:39)
[2017-10-18] MEDS ORDERED: MORPHINE SULFATE INJ 4 MG/ML DISP.SYRIN ONE (10:40)
--- NOTE | 2017-10-18 10:43 | NUR ---
JURGEN - PT'S DAUGHTER.
--- NOTE | 2017-10-18 10:56 | NUR ---
OPHTHALMIC ASST AT BS
--- NOTE | 2017-10-18 10:56 | NUR ---
EKG IN PROGRESS
[2017-10-18] MEDS ORDERED: MORPHINE SULFATE INJ 2 MG/ML DISP.SYRIN IV ONE (11:00)
[2017-10-18] MEDS ORDERED: ONDANSETRON HCL/PF 4 MG/2 ML VIAL IVP ONE (11:00)
[2017-10-18 11:01] LABS: MONOCYTES # (AUTO) 0.6 /CMM (0.1-1.30)
[2017-10-18 11:04] LABS: BASOPHILS # (AUTO) 0.2 /CMM (0.0-0.2); EOSINOPHILS % (AUTO) 0.9 % (0.0-6.0); LYMPHOCYTES # (AUTO) 1.2 /CMM (0.8-4.8); LYMPHOCYTES % (AUTO) 10.7 % (20.0-44.0); MEAN CORPUSCULAR HGB CONC 35 g/dl (31.0-36.0); MEAN CORPUSCULAR VOLUME 81 fL (82-100); MONOCYTES % (AUTO) 5.3 % (2.0-12.0); NEUTROPHILS # (AUTO) 8.7 /CMM (1.8-8.9); NEUTROPHILS % (AUTO) 81.1 % (43.0-81.0); PLATELET COUNT (AUTO) 226 /CMM (150-450); RDW COEFFICIENT OF VARIATION 22.5 (11.5-15.0); RED BLOOD CELL COUNT(AUTO) 2.31 MIL/uL (4.0-5.2); WHITE BLOOD COUNT (AUTO) 10.8 K/uL (4.3-11.0)
[2017-10-18 11:09] LABS: HEMATOCRIT 19 % (33-45); HEMOGLOBIN 6.6 g/dL (11.5-14.8)
[2017-10-18 11:11] LABS: CALCIUM, SERUM 9.9 mg/dL (8.5-10.1); CARBON DIOXIDE 26 mmol/L (21-32); CHLORIDE 97 mmol/L (98-107); CREATININE 2.1 mg/dL (0.6-1.3); GLUCOSE 300 mg/dL (74-106); POTASSIUM 3.7 mmol/L (3.5-5.1); SODIUM SERUM 134 mmol/L (136-145); UREA NITROGEN, BLOOD 74 mg/dL (7-18)
[2017-10-18 11:16] LABS: ALANINE AMINOTRANSFERASE 16 U/L (12-78); ALBUMIN 2.7 g/dL (3.4-5.0); ALKALINE PHOSPHATASE 64 U/L (46-116); ASPARTATE AMINOTRANSFERASE 28 U/L (15-37); BILIRUBIN,DIRECT 0.1 mg/dL (0.0-0.2); BILIRUBIN,TOTAL 0.4 mg/dL (0.2-1.0); TOTAL PROTEIN, SERUM 6.4 g/dL (6.4-8.2)
[2017-10-18 11:20] LABS: TROPONIN I 2.124 ng/mL (0.00-0.056)
--- NOTE | 2017-10-18 11:22 | NUR ---
PAGED DR. CARABALLO FOR CONSULT
[2017-10-18] MEDS ORDERED: ASPIRIN 81 MG TAB.CHEW PO ONE (11:30)
--- NOTE | 2017-10-18 11:32 | NUR ---
RIGOBERTO ESPINOSA IS COVERING FOR KASSIE
[2017-10-18] MEDS ORDERED: ASPIRIN 81 MG TAB.CHEW ONE (11:35)
--- NOTE | 2017-10-18 11:41 | NUR ---
Report given to ISIDORO snyder Tele 107.
[2017-10-18] MEDS ORDERED: CARV25TA2 PO (11:45)
[2017-10-18] MEDS ORDERED: METO5TAB7 PO (11:45)
[2017-10-18] MEDS ORDERED: ASPI-1169 PO (11:45)
--- NOTE | 2017-10-18 11:59 | NUR ---
PATIENT TRANSPORTED TO TELE. S
[2017-10-18 12:13] LABS: INR 0.95 (0.85-1.15)
[2017-10-18 12:31] LABS: BAND % (MANUAL) 2 % (0.0-5.0); LYMPHOCYTES % (MANUAL) 7 % (16-48); MONOCYTES % (MANUAL) 5 % (0-11.0); NEUTROPHILS % (MANUAL) 84 (42-76)
[2017-10-18 12:32] LABS: EOSINOPHILS % (MANUAL) 1 % (0-4); METAMYELOCYTES % 1 % (0-0)
--- NOTE | 2017-10-18 12:37 | NUR ---
RN NOTE RECEIVED REPORT FROM ER NURSE DANIEL. RECEIVED PATIENT 72 YEAR OLD FEMALE CAME FROM HOME BIBRA C/O LOWER BACK PAIN FOR 2 DAYS. PATIENT IS ALERT AND ORIENTED X3, SHE IS ABLE TO VERBALIZE NEEDS AND BONE THINGS KNOWN. BREATHING EVEN AND UNLABORED WITH NO DISTRESS NOTED. ON SENIOR SOFTWARE SYSTEMS ENGINEER SINUS RHYTHM HR OF 97. IV SITE INTACT AND PATENT. SKIN WARM TO TOUCH AND INTACT. ALL BOWEL ACTIVE IN ALL QUADRANTS. PATIENT IS ABLE TO AMBULATE WITH ASSIST. BED LOCKED IN LOW POSITION, ALL SAFETY MEASURES DONE. WILL CONTINUE TO MONITOR
--- NOTE | 2017-10-18 12:38 | NUR ---
JAMIL RN, Left message to re; adm orders wanting for returning call back
--- NOTE | 2017-10-18 13:17 | NUR ---
RN NOTE BLOOD TRANSFUSION 1 UNIT STARTED, BLOOD PRESSURE STABLE AND DOCUMENTED. PATIENT IS STABLE. WILL CONTINUE RECHECK BLOOD PRESSURE AND REACTION PER PROTOCOL
[2017-10-18] MEDS: PANTOPRAZOLE 40 MG VIAL IV SCH (13:19)
[2017-10-18] MEDS ORDERED: INSULIN REGULAR, HUMAN 100 UNIT/ML 3 ML VIAL SQ PRN ×2 (14:00→18:00)
[2017-10-18] MEDS ORDERED: hydrALAZINE HCL 50 MG TABLET PO PRN (14:00)
[2017-10-18] MEDS ORDERED: ALPRAZOLAM 0.25 MG TABLET PO PRN (14:00)
[2017-10-18] MEDS: MORPHINE SULFATE INJ 4 MG/ML DISP.SYRIN IV PRN ×2 (15:20→21:54)
--- NOTE | 2017-10-18 16:03 | NUR ---
RN NOTE BLOOD TRANSFUSION SECOND UNIT STARTED, BLOOD PRESSURE STABLE AND DOCUMENTED. PATIENT IS STABLE. WILL CONTINUE RECHECK BLOOD PRESSURE AND REACTION PER PROTOCOL
[2017-10-18] MEDS ORDERED: APIXABAN 5 MG TABLET PO ONE (17:00)
[2017-10-18] MEDS: BLOOD SUGAR DIAGNOSTIC 1 EACH STRIP IN SCH ×2 (17:16→21:59)
[2017-10-18] MEDS: INSULIN REGULAR, HUMAN 100 UNIT/ML 3 ML VIAL SQ PRN ×2 (17:57→22:00)
[2017-10-18] MEDS ORDERED: BLOOD SUGAR DIAGNOSTIC 1 EACH STRIP IN SCH ×2 (18:00)
[2017-10-18] MEDS ORDERED: DEXTROSE 50%-WATER 50 ML DISP.SYRIN IV PRN ×2 (18:00)
--- NOTE | 2017-10-18 19:15 | NUR ---
RN NOTE TRANSFUSION COMPLETE. NO REACTIONS OR DISTRESS NOTED. PATIENT REMAINED STABLE THROUGHOUT SHIFT AND TRANSFUSION, WILL ENDORSE TO NEXT SHIFT TO CONTINUE TO MONITOR CONTINUITY OF CARE.
--- NOTE | 2017-10-18 19:30 | NUR ---
RN NOTES RECEIVED SHIFT FROM AM NURSE. PATIENT RECENT TROPININ AT 2.124 MD AWARE PER AM NURSE. PATIENT IN STABLE CONDITION. VITAL SIGNS WNL. ALERT AND ORIENTED X 4 WITH NO SIGNS OF SOB.
[2017-10-18] MEDS: CARVEDILOL 12.5 MG TABLET PO SCH ×2 (21:00→21:45)
--- NOTE | 2017-10-18 22:45 | NUR ---
rn notes patient refused BP med carvedilol. verbalized her BP goes real low fast and her BP is not high enough for her to take it. explained risks and benefits and offered 3 x. and still refused
[2017-10-18 23:16] LABS: BASOPHILS % (AUTO) 0.1 % (0.0-2.0); EOSINOPHILS % (AUTO) 1.1 % (0.0-6.0); HEMATOCRIT 29 % (33-45); HEMOGLOBIN 9.4 g/dL (11.5-14.8); LYMPHOCYTES # (AUTO) 1.2 /CMM (0.8-4.8); LYMPHOCYTES % (AUTO) 12.6 % (20.0-44.0); MEAN CORPUSCULAR HGB CONC 33 g/dl (31.0-36.0); MEAN CORPUSCULAR VOLUME 84 fL (82-100); MONOCYTES # (AUTO) 0.7 /CMM (0.1-1.30); MONOCYTES % (AUTO) 7.4 % (2.0-12.0); NEUTROPHILS # (AUTO) 7.8 /CMM (1.8-8.9); NEUTROPHILS % (AUTO) 78.8 % (43.0-81.0); PLATELET COUNT (AUTO) 184 /CMM (150-450); RDW COEFFICIENT OF VARIATION 20.7 (11.5-15.0); RED BLOOD CELL COUNT(AUTO) 3.43 MIL/uL (4.0-5.2); WHITE BLOOD COUNT (AUTO) 9.9 K/uL (4.3-11.0)
[2017-10-19] VITALS: BP 112/55
[2017-10-19 04:00] VITALS: BP 104/44
[2017-10-19] MEDS: diphenhydrAMINE HCL ELIX 25 MG/10 ML UDC PO PRN (04:15)
[2017-10-19 05:14] LABS: BASOPHILS # (AUTO) 0.1 /CMM (0.0-0.2); EOSINOPHILS % (AUTO) 1.1 % (0.0-6.0); HEMATOCRIT 29 % (33-45); HEMOGLOBIN 9.5 g/dL (11.5-14.8); LYMPHOCYTES % (AUTO) 8.7 % (20.0-44.0); MEAN CORPUSCULAR HGB CONC 33 g/dl (31.0-36.0); MEAN CORPUSCULAR VOLUME 85 fL (82-100); MONOCYTES # (AUTO) 0.6 /CMM (0.1-1.30); NEUTROPHILS # (AUTO) 10.1 /CMM (1.8-8.9); NEUTROPHILS % (AUTO) 84.2 % (43.0-81.0); PLATELET COUNT (AUTO) 170 /CMM (150-450); RDW COEFFICIENT OF VARIATION 21.3 (11.5-15.0); RED BLOOD CELL COUNT(AUTO) 3.42 MIL/uL (4.0-5.2)
[2017-10-19 05:30] LABS: CALCIUM, SERUM 9.2 mg/dL (8.5-10.1); CARBON DIOXIDE 28 mmol/L (21-32); CHLORIDE 98 mmol/L (98-107); CREATININE 2.6 mg/dL (0.6-1.3); GLUCOSE 238 mg/dL (74-106); MAGNESIUM 2.3 mg/dL (1.8-2.4); PHOSPHORUS 5.2 mg/dL (2.5-4.9); POTASSIUM 4.3 mmol/L (3.5-5.1); SODIUM SERUM 135 mmol/L (136-145); UREA NITROGEN, BLOOD 76 mg/dL (7-18)
[2017-10-19 06:01] LABS: TROPONIN I 2.474 ng/mL (0.00-0.056)
--- NOTE | 2017-10-19 06:10 | NUR ---
RN NOTES. RECEIVED REPORT CRITICAL RESULT FROM LAB TROPONIN 2.004. PAGED HERMILO JEFFERSON TO RELAY LAB RESULTS. WAITING FOR CALL BACK Addendum: 10/19/17 at 0649 by TJ KHAN RN PAGED ROSA RIVERA. REGARDING TROPONIN CRITICAL LAB RESULTS. WAITING FOR CALL BACK.
--- NOTE | 2017-10-19 07:40 | NUR ---
RN NOTE RECEIVED PATIENT AWAKE ALERT AND ORIENTED X3, SHE IS ABLE TO VERBALIZE NEEDS AND MAKE THINGS KNOWN. BREATHING EVEN AND UNLABORED WITH NO DISTRESS NOTED. ON CARE NURSE RN SINUS RHYTHM HR OF 83. IV SITE INTACT AND PATENT. SKIN WARM TO TOUCH AND INTACT. PATIENT IS ABLE TO AMBULATE WITH ASSIST. BED LOCKED IN LOW POSITION, ALL SAFETY MEASURES DONE. WILL CONTINUE TO MONITOR
[2017-10-19] MEDS: BLOOD SUGAR DIAGNOSTIC 1 EACH STRIP IN SCH ×4 (07:54→21:29)
[2017-10-19] MEDS: INSULIN REGULAR, HUMAN 100 UNIT/ML 3 ML VIAL SQ PRN ×4 (07:55→21:33)
[2017-10-19 08:00] VITALS: BP 131/58
[2017-10-19] MEDS: FUROSEMIDE 40 MG TABLET PO SCH (08:28)
[2017-10-19] MEDS: ASPIRIN 81 MG TAB.CHEW PO SCH (08:28)
[2017-10-19] MEDS ORDERED: APIXABAN 5 MG TABLET PO SCH (09:00)
[2017-10-19] MEDS ORDERED: METOLAZONE 2.5 MG TABLET PO SCH (09:00)
[2017-10-19] MEDS: AMLODIPINE BESYLATE 10 MG TABLET PO SCH (09:09)
[2017-10-19] MEDS: CARVEDILOL 12.5 MG TABLET PO SCH ×2 (09:10→20:25)
[2017-10-19] MEDS: ISOSORBIDE DINITRATE (10MG) 10 MG TABLET PO SCH (09:10)
[2017-10-19 11:32] LABS: IRON, SERUM 22 ug/dl (50-175); TOTAL IRON BINDING CAPACITY 417 ug/dl (250-450)
[2017-10-19 11:45] LABS: CHOLESTEROL 203 mg/dL (<200); FERRITIN 11 ng/mL (8-388); HDL CHOLESTEROL 28 mg/dL (40-60); LDL 126 mg/dL (0-99); TRIGLYCERIDES 301 mg/dL (30-150)
[2017-10-19 12:00] VITALS: BP 130/60
[2017-10-19] MEDS: PANTOPRAZOLE 40 MG VIAL IV SCH (12:18)
[2017-10-19 16:00] VITALS: BP 102/53
[2017-10-19] MEDS: MORPHINE SULFATE INJ 4 MG/ML DISP.SYRIN IV PRN (16:23)
[2017-10-19] MEDS ORDERED: APIXABAN 2.5 MG TABLET PO ONE (17:00)
[2017-10-19] MEDS: APIXABAN 2.5 MG TABLET PO SCH (17:26)
--- NOTE | 2017-10-19 17:45 | NUR ---
RN NOTE PATIENT NOTED RA SATURATION 89-90%, PROVIDED O2 2 LPM VIA NC, RECHECKED O2 SATURATION CURRENTLY 95%. WILL CONTINUE TO MONITOR
--- NOTE | 2017-10-19 19:15 | NUR ---
DISTRIBUTION SYSTEMS SUPERINTENDENT NOTE RECEIVED PATIENT AOX4, WITH HOB ELEVATED, DENIES HAVING ANY PAIN, ON ROOM AIR, TELE SR 80, NO CARDIAC OR RESPIRATORY DISTRESS NOTED, NO S/SX OF HYPO/HYPERGLYCEMIA, SKIN KEPT CLEAN AND DRY, R WRIST #20G SL PATENT, FLUSHING WELL, SITE CDI, AMBULATORY, BRP, SAFETY MAINTAINED AT ALL TIMES, BED IN LOW LOCKED POSITION, CALL LIGHT WITHIN REACH, WILL CONTINUE TO MONITOR FOR ANY CHANGES IN CONDITION.
[2017-10-19 20:00] VITALS: BP 105/39
--- NOTE | 2017-10-19 21:40 | NUR ---
RN INITIAL NOTE RECEIVED REPORT FROM NURSE CHAIRAMINE. PATIENT IS ALERT AND ORIENTED X3, SHE IS ABLE TO VERBALIZE NEEDS. BREATHING EVEN AND UNLABORED WITH NO DISTRESS NOTED. ON PRINCIPAL JAVA DEVELOPER SINUS RHYTHM HR OF SR. IV SITE INTACT AND PATENT. SKIN WARM TO TOUCH AND INTACT. ALL BOWEL ACTIVE IN ALL QUADRANTS. PATIENT IS ABLE TO AMBULATE WITH ASSIST. BED LOCKED IN LOW POSITION, ALL SAFETY MEASURES DONE.B/P AT 1999 WAS 105/39. WILL CONTINUE TO MONITOR
[2017-10-20] VITALS: BP 131/38
[2017-10-20] MEDS: diphenhydrAMINE HCL ELIX 25 MG/10 ML UDC PO PRN (01:54)
[2017-10-20 04:00] VITALS: BP 112/24
[2017-10-20 06:37] LABS: EOSINOPHILS % (AUTO) 1.1 % (0.0-6.0); HEMATOCRIT 28 % (33-45); HEMOGLOBIN 9.2 g/dL (11.5-14.8); LYMPHOCYTES % (AUTO) 7.8 % (20.0-44.0); MEAN CORPUSCULAR HGB CONC 33 g/dl (31.0-36.0); MEAN CORPUSCULAR VOLUME 84 fL (82-100); MONOCYTES # (AUTO) 0.8 /CMM (0.1-1.30); MONOCYTES % (AUTO) 5.9 % (2.0-12.0); NEUTROPHILS # (AUTO) 11.1 /CMM (1.8-8.9); NEUTROPHILS % (AUTO) 85.2 % (43.0-81.0); PLATELET COUNT (AUTO) 155 /CMM (150-450); RDW COEFFICIENT OF VARIATION 20.4 (11.5-15.0); RED BLOOD CELL COUNT(AUTO) 3.32 MIL/uL (4.0-5.2)
--- NOTE | 2017-10-20 06:50 | NUR ---
RN CLOSING NOTE RECEIVED PATIENT AOX4, WITH HOB ELEVATED, DENIES HAVING ANY PAIN, ON ROOM AIR, TELE SR 80, NO CARDIAC OR RESPIRATORY DISTRESS NOTED, NO S/SX OF HYPO/HYPERGLYCEMIA, SKIN KEPT CLEAN AND DRY, R WRIST #20G SL PATENT, FLUSHING WELL, SITE CDI, AMBULATORY, BRP, SAFETY MAINTAINED AT ALL TIMES, BED IN LOW LOCKED POSITION, CALL LIGHT WITHIN REACH, WILL ENDORSE TO AM RN.
[2017-10-20 07:02] LABS: ALANINE AMINOTRANSFERASE 28 U/L (12-78); ALBUMIN 2.5 g/dL (3.4-5.0); ALKALINE PHOSPHATASE 64 U/L (46-116); ASPARTATE AMINOTRANSFERASE 27 U/L (15-37); BILIRUBIN,TOTAL 0.5 mg/dL (0.2-1.0); CALCIUM, SERUM 8.7 mg/dL (8.5-10.1); CARBON DIOXIDE 29 mmol/L (21-32); CHLORIDE 95 mmol/L (98-107); CREATININE 2.9 mg/dL (0.6-1.3); GLUCOSE 151 mg/dL (74-106); MAGNESIUM 2.3 mg/dL (1.8-2.4); PHOSPHORUS 5.3 mg/dL (2.5-4.9); SODIUM SERUM 134 mmol/L (136-145); TOTAL PROTEIN, SERUM 6.1 g/dL (6.4-8.2)
[2017-10-20 07:04] LABS: UREA NITROGEN, BLOOD 86 mg/dL (7-18)
[2017-10-20 07:05] LABS: FERRITIN 16 ng/mL (8-388)
--- NOTE | 2017-10-20 07:45 | NUR ---
RN NOTE RECEIVED PATIENT AWAKE ALERT AND ORIENTED X3, SHE IS ABLE TO VERBALIZE NEEDS AND MAKE THINGS KNOWN. BREATHING EVEN AND UNLABORED WITH NO DISTRESS NOTED. ON HEAD WAITER/WAITRESS SINUS RHYTHM HR OF 72. IV SITE INTACT AND PATENT. SKIN WARM TO TOUCH AND INTACT. PATIENT IS ABLE TO AMBULATE WITH ASSIST. BED LOCKED IN LOW POSITION, ALL SAFETY MEASURES DONE. WILL CONTINUE TO MONITOR
[2017-10-20] MEDS: BLOOD SUGAR DIAGNOSTIC 1 EACH STRIP IN SCH ×4 (07:51→21:08)
[2017-10-20 08:00] VITALS: BP 127/42
[2017-10-20] MEDS: INSULIN REGULAR, HUMAN 100 UNIT/ML 3 ML VIAL SQ PRN ×4 (08:14→21:07)
[2017-10-20] MEDS: ASPIRIN 81 MG TAB.CHEW PO SCH (08:35)
[2017-10-20] MEDS: FUROSEMIDE 40 MG TABLET PO SCH (08:35)
[2017-10-20] MEDS: APIXABAN 2.5 MG TABLET PO SCH ×2 (08:36→16:40)
[2017-10-20] MEDS: ISOSORBIDE DINITRATE (10MG) 10 MG TABLET PO SCH (09:00)
[2017-10-20] MEDS: CARVEDILOL 12.5 MG TABLET PO SCH ×2 (09:00→20:57)
[2017-10-20] MEDS: AMLODIPINE BESYLATE 10 MG TABLET PO SCH (09:00)
[2017-10-20] MEDS: PANTOPRAZOLE 40 MG TABLET.DR PO SCH (10:11)
[2017-10-20 11:57] LABS: APPEARANCE,URINE CLEAR (CLEAR); BILIRUBIN,URINE NEGATIVE (NEGATIVE); BLOOD, URINE TRACE Ery/uL (NEGATIVE); COLOR,URINE YELLOW (YELLOW); KETONES,URINE NEGATIVE (NEGATIVE); LEUKOCYTE ESTERASE ,URINE 1+ (NEGATIVE); NITRITE, URINE NEGATIVE (NEGATIVE); PH,URINE 5.5 (5.0-8.0); PROTEIN,URINE 2+ mg/dl (NEGATIVE); UGLUCOSE NEGATIVE (NEGATIVE); UROBILINOGEN,URINE 0.2 EU/dL (0.2)
[2017-10-20 12:00] VITALS: BP 113/44
[2017-10-20 12:13] LABS: URINE TOTAL PROTEIN 181.7 mg/dL (0-11.9)
[2017-10-20 12:26] LABS: RBC,URINE 0-2 /HPF (0-2)
[2017-10-20 12:27] LABS: BACTERIA,URINE Moderate /HPF (None Seen); SQUAMOUS EPITHELIAL CELL,UR Moderate /HPF (None Seen)
[2017-10-20 14:02] LABS: EOSINOPHIL,URINE None Seen
[2017-10-20 16:00] VITALS: BP_SYST 119; BP_DIAS 39; BP_DIAS 40
[2017-10-20] MEDS: MORPHINE SULFATE INJ 4 MG/ML DISP.SYRIN IV PRN ×2 (16:50→21:08)
--- NOTE | 2017-10-20 18:49 | NUR ---
RN NOTE PATIENT REMAINED STABLE THROUGHOUT SHIFT. NO ACUTE CHANGES OR DISTRESS NOTED. WILL ENDORSE TO NEXT SHIFT TO CONTINUE CONTINUITY OF CARE.
--- NOTE | 2017-10-20 19:15 | NUR ---
RN M/S NOTE RECEIVED PATIENT AOX4, WITH HOB ELEVATED, DENIES HAVING ANY PAIN, ON 2L N/C, NO CARDIAC OR RESPIRATORY DISTRESS NOTED, NO S/SX OF HYPO/HYPERGLYCEMIA, SKIN KEPT CLEAN AND DRY, R WRIST #20G SL PATENT, FLUSHING WELL, SITE CDI, AMBULATORY, BRP, SAFETY MAINTAINED AT ALL TIMES, BED IN LOW LOCKED POSITION, CALL LIGHT WITHIN REACH, WILL CONTINUE TO MONITOR FOR ANY CHANGES IN CONDITION.
[2017-10-20 20:00] VITALS: BP 100/44
[2017-10-21] MEDS: MORPHINE SULFATE INJ 4 MG/ML DISP.SYRIN IV PRN ×2 (01:36→21:31)
[2017-10-21 04:00] VITALS: BP 106/43
[2017-10-21 06:41] LABS: BASOPHILS % (AUTO) 0.2 % (0.0-2.0); EOSINOPHILS % (AUTO) 1.2 % (0.0-6.0); HEMATOCRIT 28 % (33-45); HEMOGLOBIN 9.4 g/dL (11.5-14.8); LYMPHOCYTES # (AUTO) 0.8 /CMM (0.8-4.8); LYMPHOCYTES % (AUTO) 6.7 % (20.0-44.0); MEAN CORPUSCULAR HGB CONC 34 g/dl (31.0-36.0); MEAN CORPUSCULAR VOLUME 83 fL (82-100); MONOCYTES # (AUTO) 1.1 /CMM (0.1-1.30); MONOCYTES % (AUTO) 8.8 % (2.0-12.0); NEUTROPHILS % (AUTO) 83.1 % (43.0-81.0); PLATELET COUNT (AUTO) 160 /CMM (150-450); RDW COEFFICIENT OF VARIATION 19.3 (11.5-15.0); RED BLOOD CELL COUNT(AUTO) 3.36 MIL/uL (4.0-5.2)
[2017-10-21 06:57] LABS: ALANINE AMINOTRANSFERASE 29 U/L (12-78); ALBUMIN 2.5 g/dL (3.4-5.0); ALKALINE PHOSPHATASE 66 U/L (46-116); ASPARTATE AMINOTRANSFERASE 21 U/L (15-37); BILIRUBIN,TOTAL 0.6 mg/dL (0.2-1.0); CALCIUM, SERUM 8.2 mg/dL (8.5-10.1); CARBON DIOXIDE 31 mmol/L (21-32); CHLORIDE 92 mmol/L (98-107); CREATININE 3.1 mg/dL (0.6-1.3); GLUCOSE 160 mg/dL (74-106); MAGNESIUM 2.2 mg/dL (1.8-2.4); PHOSPHORUS 6.8 mg/dL (2.5-4.9); SODIUM SERUM 134 mmol/L (136-145); TOTAL PROTEIN, SERUM 6.3 g/dL (6.4-8.2)
[2017-10-21 07:04] LABS: CREATINE KINASE, TOTAL 33 U/L (26-192)
[2017-10-21 07:30] LABS: POTASSIUM 2.7 mmol/L (3.5-5.1); UREA NITROGEN, BLOOD 89 mg/dL (7-18)
--- NOTE | 2017-10-21 07:40 | NUR ---
MS RN OPENING NOTES RECEIVED PT FROM NIGHTSHIFT NURSE IN STABLE CONDITION. PT IS A/O X4. NO SOB OR SIGNS OF DISTRESS NOTED. BREATHING SI EVEN AND UNLABORED. PT ON 2L VIA NC AND SATING WELL. SHE DENIES PAIN AT THIS TIME. PER PT, SHE HAD FREQUENT NOSE BLEEDS DURING THE NIGHT, HOWEVER THEY HAVE SINCE CEASED. IV TO RIGHT WRIST NOTED TO BE PATENT AND INTACT. NO REDNESS OR SIGNS OF INFILTRATION NOTED. BED IN LOW LOCKED POSITION, SIDE RAILS UP X2, CALL LIGHT WITHIN REACH. WILL CONTINUE TO MONITOR
[2017-10-21 08:00] VITALS: BP 105/47
[2017-10-21] MEDS: BLOOD SUGAR DIAGNOSTIC 1 EACH STRIP IN SCH ×4 (08:25→22:12)
[2017-10-21] MEDS: APIXABAN 2.5 MG TABLET PO SCH ×2 (08:28→17:00)
[2017-10-21] MEDS: CARVEDILOL 12.5 MG TABLET PO SCH ×3 (08:28→21:36)
[2017-10-21] MEDS: AMLODIPINE BESYLATE 10 MG TABLET PO SCH (08:29)
[2017-10-21] MEDS: ISOSORBIDE DINITRATE (10MG) 10 MG TABLET PO SCH (08:29)
[2017-10-21] MEDS: ASPIRIN 81 MG TAB.CHEW PO SCH (08:29)
[2017-10-21] MEDS: PANTOPRAZOLE 40 MG TABLET.DR PO SCH (08:29)
[2017-10-21] MEDS: INSULIN REGULAR, HUMAN 100 UNIT/ML 3 ML VIAL SQ PRN ×4 (08:42→22:19)
[2017-10-21] MEDS: POTASSIUM CHLORIDE 20 MEQ TAB.PRT.SR PO SCH ×3 (10:22→12:38)
--- NOTE | 2017-10-21 11:47 | NUR ---
MS RN NOTES: OB STOOL PT HAD A SMALL FORMED BP. YECENIA SAMPLE COLLECTED AND SENT TO LAB FOR OB STOOL. WILL AWAIT RESULTS
[2017-10-21] MEDS ORDERED: IV NS 0.9% 500 ML IV ONE (14:30)
[2017-10-21 16:00] VITALS: BP_SYST 101; BP_DIAS 40; BP_DIAS 45
--- NOTE | 2017-10-21 19:29 | NUR ---
MS RN CLOSING NOTES PT REMAINS STABLE. ALL NEEDS WERE MET DURING SHIFT AND ORDERS CARRIED OUT ACCORDINGLY. ALL DUE MEDS GIVEN. SAFETY MEASURES REMAIN IN PLACE. WILL ENDORSE TO NIGHTSHIFT NURSE FOR DULCE
[2017-10-21 20:20] LABS: OCCULT BLOOD STOOL POSITIVE (NEGATIVE)
--- NOTE | 2017-10-21 20:30 | NUR ---
FELICITAS RN NOTES RECEIVED BED SIDE REPORT FROM AM NURSE. PT IS IN STABLE CONDITION. PT IS A/O X4. NO SOB OR SIGNS OF DISTRESS NOTED AT THIS TIME. BREATHING IS EVEN AND UNLABORED. PT ON 2L O2 VIA NC AND SATING WELL. SHE COMPLAINS OF PAIN 11/01. PER PT, SHE HAD FREQUENT NOSE BLEEDS DURING THE DAY, IV LINE RIGHT WRIST NOTED TO BE PATENT AND INTACT. NO REDNESS OR SIGNS OF INFILTRATION NOTED. BED IN LOW LOCKED POSITION, SIDE RAILS UP X2, CALL LIGHT WITHIN REACH. WILL CONTINUE TO MONITOR
[2017-10-21 21:00] VITALS: BP 119/35
[2017-10-22 04:00] VITALS: BP 120/37
[2017-10-22 06:35] LABS: BASOPHILS % (AUTO) 0.6 % (0.0-2.0); EOSINOPHILS % (AUTO) 1.3 % (0.0-6.0); HEMATOCRIT 28 % (33-45); HEMOGLOBIN 9.1 g/dL (11.5-14.8); LYMPHOCYTES # (AUTO) 0.6 /CMM (0.8-4.8); LYMPHOCYTES % (AUTO) 8.8 % (20.0-44.0); MEAN CORPUSCULAR HGB CONC 33 g/dl (31.0-36.0); MEAN CORPUSCULAR VOLUME 84 fL (82-100); MONOCYTES # (AUTO) 0.7 /CMM (0.1-1.30); MONOCYTES % (AUTO) 9.7 % (2.0-12.0); NEUTROPHILS # (AUTO) 5.9 /CMM (1.8-8.9); NEUTROPHILS % (AUTO) 79.6 % (43.0-81.0); PLATELET COUNT (AUTO) 160 /CMM (150-450); RDW COEFFICIENT OF VARIATION 20.5 (11.5-15.0); RED BLOOD CELL COUNT(AUTO) 3.31 MIL/uL (4.0-5.2); WHITE BLOOD COUNT (AUTO) 7.4 K/uL (4.3-11.0)
[2017-10-22 06:50] LABS: ALANINE AMINOTRANSFERASE 26 U/L (12-78); ALBUMIN 2.4 g/dL (3.4-5.0); ALKALINE PHOSPHATASE 67 U/L (46-116); ASPARTATE AMINOTRANSFERASE 28 U/L (15-37); BILIRUBIN,TOTAL 0.6 mg/dL (0.2-1.0); CALCIUM, SERUM 8.3 mg/dL (8.5-10.1); CARBON DIOXIDE 29 mmol/L (21-32); CHLORIDE 95 mmol/L (98-107); CREATININE 2.6 mg/dL (0.6-1.3); GLUCOSE 176 mg/dL (74-106); MAGNESIUM 2.3 mg/dL (1.8-2.4); PHOSPHORUS 5.9 mg/dL (2.5-4.9); SODIUM SERUM 135 mmol/L (136-145); TOTAL PROTEIN, SERUM 6.5 g/dL (6.4-8.2)
[2017-10-22 06:52] LABS: UREA NITROGEN, BLOOD 85 mg/dL (7-18)
--- NOTE | 2017-10-22 07:46 | NUR ---
MS RN OPENING NOTES RECEIVED PT LAYING IN BED WITH HOB SLIGHTLY ELEVATED. AFEBRILE, AWAKE AND RESPONSIVE. RESPIRATIONS ARE EVEN AND UNLABORED, NOT IN ANY ACUTE DISTRESS NOTED. NO FACIAL GRIMACING MOANING NOTED AT THIS TIME. NO C/O SOB, N/V NOTED. IV ACCESS INTACT, NO INFILTRATION NOTED. DRESSING KEPT CLEAN AND DRY. SAFETY MEASURES ARE IN PLACE. CALL LIGHT IS LEFT WITHIN REACH.
[2017-10-22 08:00] VITALS: BP 124/49
[2017-10-22] MEDS: BLOOD SUGAR DIAGNOSTIC 1 EACH STRIP IN SCH ×4 (08:00→21:30)
[2017-10-22] MEDS: PANTOPRAZOLE 40 MG TABLET.DR PO SCH (08:29)
[2017-10-22] MEDS: INSULIN REGULAR, HUMAN 100 UNIT/ML 3 ML VIAL SQ PRN ×4 (08:32→21:40)
[2017-10-22] MEDS: ASPIRIN 81 MG TAB.CHEW PO SCH (08:34)
[2017-10-22] MEDS: ISOSORBIDE DINITRATE (10MG) 10 MG TABLET PO SCH (08:34)
[2017-10-22] MEDS: APIXABAN 2.5 MG TABLET PO SCH (08:34)
[2017-10-22] MEDS: CARVEDILOL 12.5 MG TABLET PO SCH ×3 (08:35→21:24)
--- NOTE | 2017-10-22 09:45 | NUR ---
MS RN NOTES PT REFUSED ASA AND ELIQUIS. CLARIFIED ORDER OF ASA AND ELIQUIS W/ DR CARABALLO D/T STOOL OB POSITIVE. PER DR. CARABALLO TO D/C BOTH MEDICATIONS.PT MADE AWARE AND AGREED.
[2017-10-22] MEDS ORDERED: POTASSIUM CHLORIDE 20 MEQ TAB.PRT.SR PO ONE (10:00)
[2017-10-22 12:13] LABS: *SPE A/G RATIO 0.8 (0.7-1.7); *SPE ALBUMIN 2.5 g/dL (2.9-4.4); *SPE ALPHA-1-GLOBULIN 0.4 g/dL (0.0-0.4); *SPE GLOBULIN, TOTAL 3.1 g/dL (2.2-3.9); *SPE M-SPIKE Not Observed g/dL (Not Observed); *SPEGAMMA GLOBULIN 0.7 g/dL (0.4-1.8); PTH, INTACT 203 pg/mL (15-65)
[2017-10-22 13:00] VITALS: BP 118/50
--- NOTE | 2017-10-22 17:54 | NUR ---
MS RN NOTES RECEIVED A CALL FROM SHENA WILLS OF DR. SHULTZ FOR CONSENT FOR ENDOSCOPY AND COLONOSCOPY. PT STATED SHE "WANTS TO RESCHEDULE, I DO NOT WANT TO DO IT YET." NOTIFIED SHENA WILLS.
--- NOTE | 2017-10-22 18:12 | NUR ---
MS RN NOTES NOTIFIED NETWORK SECURITY OFFICER SHENA RE: PT'S REFUSAL FOR EGD/COLONOSCOPY TOMORROW. PT STATED SHE WANTS AND EGD IN THREE DAYS. PER SHENA, START PT ON CARAFATE 1GM PO TID. NOTED AND CARRIED OUT. PT MADE AWARE.
[2017-10-22] MEDS: PANTOPRAZOLE 40 MG VIAL IV SCH (18:34)
[2017-10-22] MEDS: SUCRALFATE 1 G TABLET PO SCH (18:34)
--- NOTE | 2017-10-22 18:50 | NUR ---
MS RN CLOSING NOTES ALL DUE MEDS GIVEN, NEEDS MET AND RENDERED. AFEBRILE, RESPIRATIONS ARE EVEN AND UNLABORED, NOT IN ANY ACUTE DISTRESS NOTED. NO C/O CHEST PAIN, SOB AT THIS TIME. IV SITE INTACT, NO INFILTRATION NOTED. DRESSING KEPT CLEAN AND DRY. SAFETY MEASURES ARE IN PLACE. CALL LIGHT IS LEFT WITHIN REACH. WILL ENDORSE TO NEXT SHIFT FOR CONTINUITY OF CARE.
--- NOTE | 2017-10-22 19:30 | NUR ---
RN/TELE NOTES: RECEIVED PT. IN BED A/O X 4. RA SAT. 93%. DENIES ANY C/O CHEST PAIN OR DISCOMFORT NOTED. AMBULATORY AND CONTINENT OF B/B. W/ RIGHT FA G 22 SL PATENT AND INTACT W/ NO S/S OF INFECTION/INFILTRATION NOTED. BEDS LOCKED AND IN LOW POSITION. CALL LIGHT W/ REACH. WILL CONTINUE TO MONITOR. ON TELE MONITOR W/ SR.
[2017-10-22 20:00] VITALS: BP_SYST 128; BP_DIAS 40; BP_DIAS 46
[2017-10-22] MEDS: MORPHINE SULFATE INJ 4 MG/ML DISP.SYRIN IV PRN (21:34)
[2017-10-23] VITALS: BP 149/44
[2017-10-23 04:00] VITALS: BP 144/42
[2017-10-23 06:18] LABS: EOSINOPHILS % (AUTO) 1.9 % (0.0-6.0); HEMATOCRIT 29 % (33-45); HEMOGLOBIN 9.6 g/dL (11.5-14.8); LYMPHOCYTES # (AUTO) 0.7 /CMM (0.8-4.8); LYMPHOCYTES % (AUTO) 9.3 % (20.0-44.0); MEAN CORPUSCULAR HGB CONC 33 g/dl (31.0-36.0); MEAN CORPUSCULAR VOLUME 83 fL (82-100); MONOCYTES # (AUTO) 0.7 /CMM (0.1-1.30); MONOCYTES % (AUTO) 9.3 % (2.0-12.0); NEUTROPHILS # (AUTO) 6.3 /CMM (1.8-8.9); NEUTROPHILS % (AUTO) 79.5 % (43.0-81.0); PLATELET COUNT (AUTO) 191 /CMM (150-450); RDW COEFFICIENT OF VARIATION 19.8 (11.5-15.0); RED BLOOD CELL COUNT(AUTO) 3.56 MIL/uL (4.0-5.2); WHITE BLOOD COUNT (AUTO) 7.9 K/uL (4.3-11.0)
[2017-10-23 06:46] LABS: ALANINE AMINOTRANSFERASE 22 U/L (12-78); ALBUMIN 2.5 g/dL (3.4-5.0); ALKALINE PHOSPHATASE 71 U/L (46-116); ASPARTATE AMINOTRANSFERASE 15 U/L (15-37); BILIRUBIN,TOTAL 0.5 mg/dL (0.2-1.0); CALCIUM, SERUM 8.6 mg/dL (8.5-10.1); CARBON DIOXIDE 33 mmol/L (21-32); CHLORIDE 97 mmol/L (98-107); CREATININE 2.4 mg/dL (0.6-1.3); GLUCOSE 184 mg/dL (74-106); MAGNESIUM 2.2 mg/dL (1.8-2.4); PHOSPHORUS 3.9 mg/dL (2.5-4.9); POTASSIUM 3.1 mmol/L (3.5-5.1); SODIUM SERUM 136 mmol/L (136-145); TOTAL PROTEIN, SERUM 6.9 g/dL (6.4-8.2); UREA NITROGEN, BLOOD 70 mg/dL (7-18)
--- NOTE | 2017-10-23 07:08 | NUR ---
TELE/RN NOTES: NO ACUTE CHANGES NOTED DURING THIS SHIFT. REPORT GIVEN TO AM NURSE FOR DULCE.
--- NOTE | 2017-10-23 07:30 | NUR ---
RACK PUNCHER INITIAL NOTES RECEIVED PATIENT IN BED, AOX3, NO SIGNS OF DISTRESS, SATURATING 95% ON ROOM AIR, AMBULATORY, IV R FA CLEAN AND PATENT, CURRENTLY NOT NPO DUE TO REFUSAL OF EGD AND COLONOSCOPY, PER ICE BAG ASSEMBLER SURGERY AND MD WERE MADE AWARE. BED IN LOW AND LOCKED POSITION CALL LIGHT WITHIN REACH, WILL CONTINUE TO MONITOR.
[2017-10-23 08:00] VITALS: BP 110/42
[2017-10-23] MEDS: BLOOD SUGAR DIAGNOSTIC 1 EACH STRIP IN SCH ×3 (08:25→16:29)
[2017-10-23] MEDS: INSULIN REGULAR, HUMAN 100 UNIT/ML 3 ML VIAL SQ PRN ×2 (08:26→11:43)
[2017-10-23] MEDS: ISOSORBIDE DINITRATE (10MG) 10 MG TABLET PO SCH (08:29)
[2017-10-23] MEDS: PANTOPRAZOLE 40 MG VIAL IV SCH (08:29)
[2017-10-23] MEDS: SUCRALFATE 1 G TABLET PO SCH ×3 (08:29→16:30)
[2017-10-23] MEDS: CARVEDILOL 12.5 MG TABLET PO SCH (08:29)
[2017-10-23] MEDS ORDERED: PANTOPRAZOLE 40 MG TABLET.DR PO SCH (09:00)
[2017-10-23] MEDS: POTASSIUM CHLORIDE 20 MEQ TAB.PRT.SR PO SCH ×3 (09:38→12:26)
--- NOTE | 2017-10-23 11:48 | NUR ---
K 9 POLICE OFFICER NOTES PATIENTS HUNTER Estrada MD MADE AWARE AND 10 UNITS GIVEN PER PROTOCOL.
[2017-10-23] MEDS ORDERED: *INSULIN REGULAR(HUMULIN R)HUM 100 UNIT/ML VIAL SQ PRN (13:30)
[2017-10-23] MEDS ORDERED: DEXTROSE 50%-WATER 50 ML DISP.SYRIN IV PRN (13:30)
[2017-10-23] MEDS ORDERED: INSULIN REGULAR, HUMAN 100 UNIT/ML 3 ML VIAL SQ ONE (13:30)
[2017-10-23] MEDS ORDERED: INSULIN REGULAR, HUMAN 100 UNIT/ML 3 ML VIAL SQ PRN (13:30)
[2017-10-23] MEDS ORDERED: SOD FERRIC GLUC 125 MG in IV NS 0.9% 100 ML IV SCH (14:00)
--- NOTE | 2017-10-23 14:00 | NUR ---
TOMBSTONE SETTER NOTES PATIENT GIVEN INSULIN COVERAGE PER DR BOWER ORDERS, WILL CONTINUE TO MONITOR.
[2017-10-23 16:00] VITALS: BP 129/28
--- NOTE | 2017-10-23 16:30 | NUR ---
FISH SKINNING MACHINE FEEDER NOTES PATIENT BS 88 AT THIS TIME, PATIENT CLEARED FOR DISCHARGE WITH CONTROLLED BLOOD SUGAR PER DR BOWER.
[2017-10-23] MEDS ORDERED: BLOOD SUGAR DIAGNOSTIC 1 EACH STRIP VI SCH (17:30)
--- NOTE | 2017-10-23 18:43 | NUR ---
TRACK LAYER HEAD NOTES PATIENT DC ORDERS GIVEN PER DR BOWER, ALL DISCHARGE PAPERWORK DONE, ALL DISCHARGE TEACHING DONE, PATIENT VERBALIZES UNDERSTANDING ABOUT FOLLOW-UP APPOINTMENTS TO BE MADE WITH DR SHULTZ AND DR CARABALLO, VERBALIZES UNDERSTANDING ABOUT DIABETES DIET. ALL QUESTIONS ANSWERED. PRESCRIPTION GIVEN AND TEACHING DONE, DISCONTINUED MEDICATIONS UNDERSTOOD, BELONGINGS LIST SIGNED. NO SKIN ISSUES, PATIENT TO BE PICKED UP BY DAUGHTER.
--- NOTE | 2017-10-23 20:00 | NUR ---
FELICITAS RN NOTES RECEIVED PATIENT IN BAD, A/O X4, NO SOB, LABORED BREADING NOTED AT THIS TIME, DAUGHTER AMOL ARRIVED TO PICKUP PATIENT. IV LINE AND WRIST BAND REMOVED, ALL BELONGINGS ARE WITH THE PATIENT. PATIENT IS WHEELED OUT BY CHEN WHITTEN.
== END 2017-10-23 20:00 | disposition home or self-care (01) | DRG 280 ==
LOC: ER 10:21 → TELE1 11:53 → MEDSG1 10-20 12:44 → TELE1 10-22 22:09 → MEDSG1 10-23 10:09
PROVIDERS: ADMIT Internal Medicine; ATTEND Internal Medicine
PROC: 30233N1 Transfusion of Nonautologous Red Blood Cells into Peripheral Vein, Percutaneous Approach (ICD-10-PCS; principal; 2017-10-18)
DX: I21.4 Non-ST elevation (NSTEMI) myocardial infarction (principal); N17.0 Acute kidney failure with tubular necrosis; E44.0 Moderate protein-calorie malnutrition; K92.2 Gastrointestinal hemorrhage, unspecified; E11.22 Type 2 diabetes mellitus with diabetic chronic kidney disease; J44.1 Chronic obstructive pulmonary disease with (acute) exacerbation; I48.91 Unspecified atrial fibrillation; I50.9 Heart failure, unspecified; I13.0 Hypertensive heart and chronic kidney disease with heart failure and stage 1 through stage 4 chronic kidney disease, or unspecified chronic kidney disease; D50.9 Iron deficiency anemia, unspecified; E86.0 Dehydration; E78.5 Hyperlipidemia, unspecified; E87.6 Hypokalemia; N18.9 Chronic kidney disease, unspecified; I25.10 Atherosclerotic heart disease of native coronary artery without angina pectoris; Z87.891 Personal history of nicotine dependence; Z85.3 Personal history of malignant neoplasm of breast; Z88.2 Allergy status to sulfonamides; R04.0 Epistaxis; M54.5 Low back pain; Z68.24 Body mass index [BMI] 24.0-24.9, adult; Z79.4 Long term (current) use of insulin; G89.29 Other chronic pain; Z79.01 Long term (current) use of anticoagulants; Z91.14 Patient's other noncompliance with medication regimen
CPT/HCPCS: 36415; 71045-TC; 80048-TC; 80053-TC; 80061-TC; 80076-TC; 81000-TC; 82272-TC; 82550-TC; 82570-TC; 82728-TC; 82962-TC; 83540-TC; 83735-TC; 83970; 84100-TC; 84155; 84155-TC; 84165; 84300-TC; 84484-TC; 85025-TC; 85730-TC; 86850-TC; 86921-TC; 87081-TC; 87086-TC; 93307-TC; 94799-TC; 97116-TC; 97530-TC; A4606; C9113; J1815; J2270; J2405; J2916; J7030; J7040; J7050; P9016-BL; Q0163; Z7610

== ENCOUNTER 2017-12-08 16:22 | Inpatient (IN) | payer MEDICARE, OTHER ==
[~2017-12-08] VITALS: Ht 149.9 cm; Wt 55.3 kg
[~2017-12-08 16:22] MED LIST changes: +AMLO10TA2 PO; -AMLO10TA6 PO; +ASPI-1169 PO; -ASPI-992 PO; -CARV12.52 PO; +CARV25TA2 PO; -CLOP75TA15 PO; +METO5TAB7 PO; -ROSU5TAB PO; -TRAM50TA2 PO
--- NOTE | 2017-12-08 17:20 | NUR ---
AAOX3, SENT FROM DR CARABALLO'S OFFICE, SBP NOTED AT 230'S. PT IS COMPLAINING OF HEADACHE. RR IS EVEN AND UNLABORED WITH NAD NOTED. SKIN IS WARM AND NON DIAPHORETIC. PLACED ON THE MONITOR. AWAITING MD FOR EVAL.
[2017-12-08] MEDS ORDERED: LABETALOL HCL IV 100MG VIAL ONE (18:24)
[2017-12-08] MEDS ORDERED: LABETALOL 20 MG/4 ML VIAL IV ONE ×2 (18:30→22:00)
[2017-12-08 18:32] LABS: BASOPHILS % (AUTO) 0.3 % (0.0-2.0); EOSINOPHILS % (AUTO) 1.4 % (0.0-6.0); HEMATOCRIT 40 % (33-45); HEMOGLOBIN 12.5 g/dL (11.5-14.8); LYMPHOCYTES % (AUTO) 13.2 % (20.0-44.0); MEAN CORPUSCULAR HEMOGLOBIN 26 PG (26.0-33.0); MEAN CORPUSCULAR HGB CONC 32 g/dl (31.0-36.0); MEAN CORPUSCULAR VOLUME 81 fL (82-100); MONOCYTES # (AUTO) 0.3 /CMM (0.1-1.30); NEUTROPHILS # (AUTO) 6.2 /CMM (1.8-8.9); NEUTROPHILS % (AUTO) 81.1 % (43.0-81.0); PLATELET COUNT (AUTO) 211 /CMM (150-450); RDW COEFFICIENT OF VARIATION 19.4 (11.5-15.0); RED BLOOD CELL COUNT(AUTO) 4.86 MIL/uL (4.0-5.2); WHITE BLOOD COUNT (AUTO) 7.6 K/uL (4.3-11.0)
[2017-12-08 18:44] LABS: CALCIUM, SERUM 9.6 mg/dL (8.5-10.1); CARBON DIOXIDE 24 mmol/L (21-32); CHLORIDE 106 mmol/L (98-107); CREATININE 2.1 mg/dL (0.6-1.3); GLUCOSE 187 mg/dL (74-106); POTASSIUM 3.4 mmol/L (3.5-5.1); SODIUM SERUM 141 mmol/L (136-145); UREA NITROGEN, BLOOD 43 mg/dL (7-18)
[2017-12-08 18:51] LABS: INR 0.89 (0.85-1.15)
[2017-12-08] MEDS ORDERED: NIFEdipine XL 60 MG TAB PO ONE (19:00)
[2017-12-08] MEDS ORDERED: POTASSIUM CHLORIDE 10 MEQ TABLET.SA PO ONE (19:00)
--- NOTE | 2017-12-08 19:20 | NUR ---
REPORT GIVEN TO ISIDORO CARMICHAEL FOR DULCE.
--- NOTE | 2017-12-08 19:54 | NUR ---
CALLED [facility], HEALTH CARE MARKETING MANAGER WAS PAGED.
--- NOTE | 2017-12-08 20:59 | NUR ---
report given to jose r Irby.
[2017-12-08] MEDS ORDERED: ALPRAZOLAM 0.25 MG TABLET ONE (21:54)
--- NOTE | 2017-12-08 21:59 | NUR ---
pt's BP went back up to 206/78. Dr Verdugo ordered another x1 dose of labetolol 10mg. also ordered x1 xanax 0.25mg.
[2017-12-08] MEDS ORDERED: ALPRAZOLAM 0.25 MG TABLET PO ONE (22:00)
--- NOTE | 2017-12-08 22:27 | NUR ---
pt's BP went down to 157/68, HR 65. ok to go up to 3w.
--- NOTE | 2017-12-08 22:44 | NUR ---
pt being transported per [facility] protocol.
[2017-12-08 23:00] VITALS: BP 132/96
--- NOTE | 2017-12-08 23:00 | NUR ---
tele/rn notes RECEIVED PATIENT FROM ER ON A GURNEY, ALERT, ORIENTED X3, ABLE TO VERBALIZE NEEDS, ABLE TO AMBULATE W/ STEADY GAIT, RESPIRATIONS EVEN AND UNLABORED, SKIN INTACT, SKIN WARM TO TOUCH,PATIENT DX WITH ELEVATED B/P OF SBP IN 230. CURRENT B/P AT 132/96, PULSE 62, R-20, TEMP-98, O2 SAT IN RA AT 96%. DR. MOSQUERA ADMITTING MD AND INFORM TO ENTER AND RECONCILE MD. PATIEN THX OF HTN, DM, PREVIOUS HOSPITALIZED 2 MONTHS AGO FOR [place], HX OF ANEMIA, GI BLEED, , ROOM ORIENTATION PROVIDED, BELONGINGS CHECK, REPORTED HOME MEDICATION WILL BE BROUGHT HOME BY DAUGHTER WILL JUST HAVE RASHMI ENCARNACION TAKE A LOOK PER PATIENT, BELONGINGS CHECK. PAIN REPORTED ON LEFT BREAST BUT TOLERABLE
[2017-12-09] VITALS (7 sets, daily range): BP systolic 98–173; BP diastolic 48–71
[2017-12-09] MEDS ORDERED: MAG HYDROX/AL HYDROX/SIMETH 30 ML UDC PO PRN (00:30)
[2017-12-09] MEDS ORDERED: INSULIN REGULAR, HUMAN 100 UNIT/ML 3 ML VIAL SQ PRN (00:30)
[2017-12-09] MEDS ORDERED: ONDANSETRON HCL/PF 4 MG/2 ML VIAL IVP PRN (00:30)
[2017-12-09] MEDS ORDERED: ZOLPIDEM TARTRATE 5 MG TABLET PO PRN (00:30)
[2017-12-09] MEDS ORDERED: MAGNESIUM HYDROXIDE 30 ML UDC PO PRN (00:30)
[2017-12-09] MEDS ORDERED: *INSULIN REGULAR(HUMULIN R)HUM 100 UNIT/ML VIAL SQ PRN (00:30)
[2017-12-09] MEDS ORDERED: ACETAMINOPHEN 325 MG TABLET PO PRN (00:30)
[2017-12-09] MEDS ORDERED: DEXTROSE 50%-WATER 50 ML DISP.SYRIN IV PRN ×2 (00:30→07:30)
[2017-12-09] MEDS ORDERED: Z GUARD REMEDY 2 OZ OINT TP PRN (00:30)
[2017-12-09] MEDS ORDERED: hydrALAZINE HCL 50 MG TABLET PO PRN (00:30)
[2017-12-09] MEDS: INSULIN REGULAR, HUMAN 100 UNIT/ML 3 ML VIAL SQ PRN ×2 (06:49→11:55)
--- NOTE | 2017-12-09 06:54 | NUR ---
323-2 PATIENT ABLE TO SLEEP DURING THE NIGHT, ALERT, OREINTED X3, ABLE TO VERBALIZE NEEDS AT ALL TIMES, RESPIRATIONS EVEN AND UNLABORED, ON OXYGEN VIIA NC AT 2L FOR COMFORT , SKIN WARM TO TOUCH, CALL LIGHTS WITHIN REACH, BED IN LOCK POSITION,PROVIDED FLUIDS.ON IV ON RIGHT HAND. PATENT. WILL ENDORSE TO AM RN FOR DULCE.
[2017-12-09] MEDS ORDERED: BLOOD SUGAR DIAGNOSTIC 1 EACH STRIP VI SCH (07:30)
--- NOTE | 2017-12-09 07:40 | NUR ---
[employer] AND [employer]PPLY SUPERVISOR OPENING NOTE PATIENT RESTING COMFORTABLY IN BED AT THIS TIME, ALERT AND ORIENTED x4. NO FACIAL GRIMACING NOTED FOR PAIN. NO SOB OR DISTRESS NOTED ON ROOM AIR AND TOLERATING WELL. IV INTACT AND PATENT, NO REDNESS OR SWELLING NOTED WITH IV FLUIDS RUNNING AT THIS TIME TOLERATING WELL. BLOOD SUGAR TO BE MONITORED THROUGHOUT SHIFT. CARDIAC DIET. WILL CONTINUE TO MONITOR THROUGHOUT SHIFT.
[2017-12-09] MEDS ORDERED: EVOL140S SQ (08:49)
[2017-12-09] MEDS ORDERED: CARVEDILOL 25 MG TABLET PO SCH (09:00)
[2017-12-09] MEDS ORDERED: APIXABAN 5 MG TABLET PO SCH (09:00)
[2017-12-09] MEDS ORDERED: AMLODIPINE BESYLATE 10 MG TABLET PO SCH (09:00)
[2017-12-09] MEDS ORDERED: ISOSORBIDE DINITRATE (10MG) 10 MG TABLET PO SCH (09:00)
[2017-12-09] MEDS: BLOOD SUGAR DIAGNOSTIC 1 EACH STRIP VI SCH ×4 (09:02→21:34)
[2017-12-09] MEDS: ASPIRIN 81 MG TAB.CHEW PO SCH (09:03)
[2017-12-09] MEDS: NIFEdipine XL (30MG) 30 MG TAB PO SCH (09:04)
[2017-12-09] MEDS: METOLAZONE 2.5 MG TABLET PO SCH (09:04)
[2017-12-09] MEDS: FUROSEMIDE 40 MG TABLET PO SCH (09:04)
[2017-12-09] MEDS: ISOSORBIDE DINITRATE (20MG) 20 MG TABLET PO SCH ×2 (09:05→16:33)
[2017-12-09] MEDS ORDERED: ALBUTEROL HALF STRENGTH 1.25 MG/3 ML VIAL.NEB NEB PRN (10:00)
[2017-12-09] MEDS ORDERED: IPRATROPIUM NEB FS 0.5 MG/2.5 ML AMPUL.NEB NEB PRN (10:00)
[2017-12-09] MEDS: APIXABAN 2.5 MG TABLET PO SCH ×2 (10:06→16:40)
--- NOTE | 2017-12-09 11:18 | NUR ---
MS RN NOTE BLOOD SUGAR CHECKED-257 INSULIN TO BE GIVEN ONCE FOOD AT BEDSIDE
--- NOTE | 2017-12-09 17:02 | NUR ---
MS RN NOTE PATIENTS BLOOD SUGAR-129 NO INSULIN NEEDED AT THIS TIME
--- NOTE | 2017-12-09 18:43 | NUR ---
MS RN CLOSING NOTE PATIENT IN BED LOCKED IN LOWEST POSITION WITH SIDE RAILS UP X2 FOR SAFETY. ON ROOM AIR TOLERATING WELL NO SOB OR DISTRESS NOTED. NO PAIN NOTED. ALL DUE MEDICATIONS GIVEN ORDERED. ALL NURSING CARE NEEDS ATTENDED TO NEEDED. CALL LIGHT WITHIN REACH AT ALL TIMES. BLOOD SUGAR CHECKED AND INSULIN TO BE GIVEN NEEDED. ORIENTED x4 AND ABLE TO COMMUNICATE NEEDS. IV INTACT AND PATENT NO REDNESS OR SWELLING NOTED. LABS IN AM.WILL ENDORSE TO LAY OUT MAKER NURSE FOR DULCE
--- NOTE | 2017-12-09 20:00 | NUR ---
MS DELVIS INITIAL NOTES RECEIVED REPORT FROM AM NURSE SILVANA. SHE'S IN BED SITTING WHILE WATCHING TV AT THIS TIME. WITH O2 AT 2 LITERS VIA NC. NO SOB NOTED AT THIS TIME. HEPLOCK PATENT AND INTACT. DENIES ANY PAIN 0R ANY DISCOMFORT. SHE STATED SHE WANTS HER XANAX LATER AND CHECK HER BLOOD PRESSURE EARLIER LIKE 9 OR 930 BECAUSE SHE WANTS TO SLEEP . SPOKE TO HER I'LL DO MY BEST TO DO HER BLOOD SUGAR AND GIVE HER XANAX IN TIME. KEPT HER WARM AND COMFORTABLE AT ALL TIMES. PLACE CALL LIGHT AT REACH.
[2017-12-09] MEDS: ALPRAZOLAM 0.25 MG TABLET PO PRN (21:34)
[2017-12-09] MEDS: CARVEDILOL 12.5 MG TABLET PO SCH (21:34)
[2017-12-09] MEDS: *INSULIN REGULAR(HUMULIN R)HUM 100 UNIT/ML VIAL SQ PRN (21:44)
[2017-12-10 06:22] LABS: EOSINOPHILS % (AUTO) 3.2 % (0.0-6.0); HEMATOCRIT 33 % (33-45); HEMOGLOBIN 10.7 g/dL (11.5-14.8); LYMPHOCYTES # (AUTO) 1.1 /CMM (0.8-4.8); LYMPHOCYTES % (AUTO) 15.3 % (20.0-44.0); MEAN CORPUSCULAR HEMOGLOBIN 27 PG (26.0-33.0); MEAN CORPUSCULAR HGB CONC 33 g/dl (31.0-36.0); MEAN CORPUSCULAR VOLUME 83 fL (82-100); MONOCYTES # (AUTO) 0.4 /CMM (0.1-1.30); MONOCYTES % (AUTO) 6.3 % (2.0-12.0); NEUTROPHILS # (AUTO) 5.3 /CMM (1.8-8.9); NEUTROPHILS % (AUTO) 75.2 % (43.0-81.0); PLATELET COUNT (AUTO) 215 /CMM (150-450); RDW COEFFICIENT OF VARIATION 19.9 (11.5-15.0); RED BLOOD CELL COUNT(AUTO) 3.94 MIL/uL (4.0-5.2)
[2017-12-10 06:38] LABS: CALCIUM, SERUM 8.9 mg/dL (8.5-10.1); CARBON DIOXIDE 23 mmol/L (21-32); CHLORIDE 102 mmol/L (98-107); CREATININE 2.8 mg/dL (0.6-1.3); GLUCOSE 213 mg/dL (74-106); MAGNESIUM 2.6 mg/dL (1.8-2.4); PHOSPHORUS 6.1 mg/dL (2.5-4.9); SODIUM SERUM 136 mmol/L (136-145); UREA NITROGEN, BLOOD 60 mg/dL (7-18)
[2017-12-10] MEDS: BLOOD SUGAR DIAGNOSTIC 1 EACH STRIP VI SCH ×4 (06:38→21:29)
[2017-12-10 06:41] LABS: CHOLESTEROL 164 mg/dL (<200); HDL CHOLESTEROL 41 mg/dL (40-60); LDL 90 mg/dL (0-99); TRIGLYCERIDES 254 mg/dL (30-150)
[2017-12-10] MEDS: INSULIN REGULAR, HUMAN 100 UNIT/ML 3 ML VIAL SQ PRN ×3 (06:42→17:55)
--- NOTE | 2017-12-10 07:00 | NUR ---
MS RN OPENING NOTE RECEIVED BEDSIDE SBAR REPORT ON THE PATIENT. PATIENT RESTING COMFORTABLY IN BED AT THIS TIME, ALERT AND ORIENTED x4. NO FACIAL GRIMACING NOTED FOR PAIN. NO SOB OR DISTRESS NOTED ON ROOM AIR AND TOLERATING WELL. IV INTACT AND PATENT, NO REDNESS OR SWELLING NOTED WITH IV FLUIDS RUNNING AT THIS TIME TOLERATING WELL. BLOOD SUGAR TO BE MONITORED THROUGHOUT SHIFT. CARDIAC DIET. WILL CONTINUE TO MONITOR THROUGHOUT SHIFT.
--- NOTE | 2017-12-10 07:45 | NUR ---
MS HEALTHCARE ECONOMICS MANAGER CLOSING NOTES PT REMAINS SLEEPING AT THIS TIME. SLEPT WELL AND STABLE GODFREY THE NIGHT. BLOOD SUGAR CHECKED DONE 187, 3 UNITS OF INSULIN GIVEN GODFREY SQ ORDERED. ALL DUE MEDS GIVEN AND ALL NEEDS MET. NO SIGNS OF ANY ACUTE DISTRESS NOTED. KEPT HER WARM AND COMFORTABLE AT ALL TIMES. WILL CONTINUE MONITORING AND ENDORSE TO AM NURSE. PLACE CALL LIGHT AT REACH.
[2017-12-10 08:00] VITALS: BP 117/54
[2017-12-10] MEDS: NIFEdipine XL (30MG) 30 MG TAB PO SCH (09:00)
[2017-12-10] MEDS: FUROSEMIDE 40 MG TABLET PO SCH (09:00)
[2017-12-10] MEDS: ASPIRIN 81 MG TAB.CHEW PO SCH (09:29)
[2017-12-10] MEDS: METOLAZONE 2.5 MG TABLET PO SCH (09:32)
[2017-12-10] MEDS: ISOSORBIDE DINITRATE (20MG) 20 MG TABLET PO SCH ×2 (09:46→17:47)
[2017-12-10] MEDS: CARVEDILOL 12.5 MG TABLET PO SCH ×2 (09:48→21:29)
[2017-12-10] MEDS: APIXABAN 2.5 MG TABLET PO SCH ×2 (09:52→17:49)
[2017-12-10 16:00] VITALS: BP 133/52
[2017-12-10] MEDS: HYDROCODONE/APAP 5/325MG 1 EACH TABLET PO PRN (17:47)
--- NOTE | 2017-12-10 17:55 | NUR ---
COMPLAINED OF LBP 01/01. NORCO ADMINISTERED ORDERED/ WILL RE-ASSESS THE PAIN INTENSITY
--- NOTE | 2017-12-10 19:42 | NUR ---
PATIENT IS AWAKE ALERT AND ORIENTED X3. IN BED, BED IN LOCKED, IN LOWEST POSITION, SIDE RAILS UP X2. CALL LIGHT WITHIN REACH. NO SIGNIFICANT CHANGES THROUGHOUT THE SHIFT. VS WNL.
--- NOTE | 2017-12-10 19:43 | NUR ---
ENDORSED TO THE SENIOR WATER/WASTEWATER ENGINEER NURSE FOR DULCE.
--- NOTE | 2017-12-10 19:45 | NUR ---
MS GAMEPLAY ENGINEER INITIAL NOTES SEEN PT IN AFTER GOT REPORT FROM AM NURSE. SHE'S AWAKE AND ALERT WATCHING TV AT THIS TIME. STILL WITH HEPLOCK IN HER RIGHT HAND PATENT AND INTACT. DENIES ANY PAIN OR ANY DISCOMFORT. SHE ONLY WANTS HER XANAX MEDICATION FOR TONIGHT. KEPT HER WARM AND COMFORTABLE AT ALL TIME PLACE CALL LIGHT AT REACH. WILL CONTINUE MONITORING.
[2017-12-10 20:00] VITALS: BP 92/57
[2017-12-10] MEDS: ALPRAZOLAM 0.25 MG TABLET PO PRN (21:29)
[2017-12-10] MEDS: *INSULIN REGULAR(HUMULIN R)HUM 100 UNIT/ML VIAL SQ PRN (21:33)
--- NOTE | 2017-12-10 21:35 | NUR ---
MS DELVIS NOTES. BLOOD SUGAR CHECKED DONE 197 , 3 UNITS OF INSULIN GIVEN GODFREY SQ AND SNACKS ALSO SERVED.XANAX ALSO GIVEN PO PER PT REQUESTED. EDUCATE PT FOR POSSIBLE SIDE EFFECT AND AND SHE UNDERSTOOD WELL. KEPT HER COMFORTABLE AND SAFE AT ALL TIMES. WILL CONTINUE MONITORING.
--- NOTE | 2017-12-11 00:25 | NUR ---
SPORTS BOOK SERVER NOTES PT SLEEPING COMFORTABLY IN BED WITHOUT ANY ACUTE DISTRESS NOTED,. BREATHING EVEN AND NON-LABORED. KEPT HER WARM AND COMFORTABLE AT ALL TIMES. WILL CONTINUE MONITORING.
[2017-12-11] MEDS: BLOOD SUGAR DIAGNOSTIC 1 EACH STRIP VI SCH ×4 (06:29→21:25)
[2017-12-11] MEDS: INSULIN REGULAR, HUMAN 100 UNIT/ML 3 ML VIAL SQ PRN ×3 (06:30→17:02)
[2017-12-11] MEDS: HYDROCODONE/APAP 5/325MG 1 EACH TABLET PO PRN ×2 (06:34→19:50)
--- NOTE | 2017-12-11 07:03 | NUR ---
MS EVAPORATOR CLOSING NOTES PT WATCHING TV AT THIS TIME. NORCO TABLET GIVEN FOR HER BACK PAIN,. BLOOD SUGAR 183, 3 UNITS OF INSULIN GIVEN , NO SIGNS OF ANY HYPO/HYPER GLYCEMIA NOTED. SLEPT WELL AND STABLE GODFREY THE NIGHT. ALL DUE MEDS GIVEN AND ALL NEEDS MET. SHE SPOKE TO ME AND SAYING "HOLD MY HAND AND I WILL PRAY FOR YOU". KEPT HER WARM AND COMFORTABLE AT ALL TIMES. PLACE CALL LIGHT AT REACH.
--- NOTE | 2017-12-11 07:24 | NUR ---
MS RN NOTES PATIENT RECEIVED RESTING INSIDE ROOM. AWAKE, ALERT AND ORIENTED X 4. VERBALLY RESPONSIVE AND RESPONDS TO VERBAL AND TACTILE STIMULI. BREATHING EVEN AND UNLABORED. NO SOB OR ACUTE DISTRESS NOTED. NO CHANGES IN LOC NOTED AT THIS TIME. PATIENT AFEBRILE, SKIN DRY AND WARM TO TOUCH. NO CHANGES IN LOC NOTED. PATIENT DENIES ANY PAIN OR DISCOMFORT. IV SITE INTACT AND PATENT. NO SWELLING NOTED AT THIS TIME. WILL CONTINUE TO MONITOR. BED LOCKED AND IN LOW POSITION. BILATERAL UPPER SIDE RAILS UP AND LOCKED. CALL LIGHT WITHIN EASY REACH
[2017-12-11 08:00] VITALS: BP 135/67
[2017-12-11 09:00] VITALS: BP 109/50
[2017-12-11] MEDS: CARVEDILOL 12.5 MG TABLET PO SCH ×2 (09:00→21:26)
[2017-12-11] MEDS: ISOSORBIDE DINITRATE (20MG) 20 MG TABLET PO SCH ×2 (09:00→17:00)
[2017-12-11] MEDS: ASPIRIN 81 MG TAB.CHEW PO SCH (09:04)
[2017-12-11] MEDS: METOLAZONE 2.5 MG TABLET PO SCH (09:04)
[2017-12-11] MEDS: APIXABAN 2.5 MG TABLET PO SCH ×2 (09:05→16:59)
[2017-12-11 16:00] VITALS: BP 130/72
--- NOTE | 2017-12-11 18:51 | NUR ---
MS RN NOTES PATIENT RESTING INSIDE ROOM. AWAKE, ALERT AND ORIENTED. VERBALLY RESPONSIVE AND RESPONDS TO VERBAL AND TACTILE STIMULI. BREATHING EVEN AND UNLABORED. NO SOB OR ACUTE DISTRESS NOTED AT THIS TIME. PATIENT DENIES ANY PAIN OR DISCOMFORT AT THIS TIME. NO CHANGES IN LOC NOTED AT THIS TIME. PATIENT CALM AND RELAXED. IV SITE INTACT. NO SWELLING OR BLEEDING NOTED ON SITE. WILL ENDORSE TO INCOMING SHIFT FOR DULCE. BED LOCKED AND IN LOW POSITION. BILATERAL UPPER SIDE RAILS UP AND LOCKED. CALL LIGHT WITHIN EASY REACH
--- NOTE | 2017-12-11 19:15 | NUR ---
MS/RN NOTES RECEIVED PT. LYING IN BED. PT. IS AWAKE, ALERT AND ORIENTED X4. BREATHING EVEN AND UNLABORED ON ROOM AIR. NO SOB OR RESPIRATORY DISTRESS NOTED AT THIS TIME. PT. COMPLAINING OF PAIN 7/10 IN HER LOWER BACK. WILL ADMINISTER TO PT. PAIN MEDICATION ORDERED. PT. WITH RIGHT HAND 22 GAUGE IV SALINE LOCK PRESENT, PATENT AND INTACT. BED LOCKED AND IN LOWEST POSITION, SIDE RAILS UP X2, CALL LIGHT WITHIN REACH, WILL CONTINUE TO MONITOR.
[2017-12-11 20:00] VITALS: BP 137/85
[2017-12-11] MEDS: *INSULIN REGULAR(HUMULIN R)HUM 100 UNIT/ML VIAL SQ PRN (21:27)
[2017-12-11] MEDS: ALPRAZOLAM 0.25 MG TABLET PO PRN (22:47)
[2017-12-12] MEDS: BLOOD SUGAR DIAGNOSTIC 1 EACH STRIP VI SCH ×2 (06:49→11:50)
[2017-12-12] MEDS: INSULIN REGULAR, HUMAN 100 UNIT/ML 3 ML VIAL SQ PRN ×2 (06:50→11:53)
--- NOTE | 2017-12-12 07:07 | NUR ---
MS/RN NOTES PT. IS SITTING UP IN BED AWAKE, ALERT AND ORIENTED X4. BREATHING EVEN AND UNLABORED ON ROOM AIR. NO SOB, RESPIRATORY DISTRESS OR COMPLAINTS OF PAIN NOTED AT THIS TIME. PT. WITH RIGHT HAND 22 GAUGE IV SALINE LOCK PRESENT, PATENT AND INTACT. ALL PT. NEEDS MET. BED LOCKED AND IN LOWEST POSITION, SIDE RAILS UP X2, CALL LIGHT WITHIN REACH, WILL ENDORSE TO DAYSHIFT NURSE FOR CONTINUITY OF CARE.
[2017-12-12 07:13] LABS: BASOPHILS % (AUTO) 0.5 % (0.0-2.0); HEMATOCRIT 34 % (33-45); LYMPHOCYTES % (AUTO) 20.2 % (20.0-44.0); MEAN CORPUSCULAR HEMOGLOBIN 27 PG (26.0-33.0); MEAN CORPUSCULAR HGB CONC 32 g/dl (31.0-36.0); MEAN CORPUSCULAR VOLUME 84 fL (82-100); MONOCYTES # (AUTO) 0.5 /CMM (0.1-1.30); MONOCYTES % (AUTO) 9.1 % (2.0-12.0); NEUTROPHILS # (AUTO) 3.5 /CMM (1.8-8.9); NEUTROPHILS % (AUTO) 67.2 % (43.0-81.0); PLATELET COUNT (AUTO) 195 /CMM (150-450); RDW COEFFICIENT OF VARIATION 20.7 (11.5-15.0); RED BLOOD CELL COUNT(AUTO) 4.09 MIL/uL (4.0-5.2); WHITE BLOOD COUNT (AUTO) 5.2 K/uL (4.3-11.0)
--- NOTE | 2017-12-12 07:23 | NUR ---
MS RN NOTES PATIENT RECEIVED RESTING INSIDE ROOM. AWAKE, ALERT AND ORIENTED X 4, VERBALLY RESPONSIVE AND RESPONDS TO VERBAL AND TACTILE STIMULI. BREATHING EVEN AND UNLABORED. NO SOB OR ACUTE DISTRESS NOTED AT THIS TIME. DENIES ANY PAIN OR DISCOMFORT. NO CHANGES IN LOC NOTED AT THIS TIME. PATIENT VERBALIZED HAVING SUFFICIENT REST DURING THE NIGHT. IV SITE INTACT AND PATENT. WILL CONTINUE TO MONITOR. BED LOCKED AND IN LOW POSITION. BILATERAL UPPER SIDE RAILS UP AND LOCKED. CALL LIGHT WITHIN EASY REACH
[2017-12-12 07:44] LABS: CALCIUM, SERUM 8.9 mg/dL (8.5-10.1); CARBON DIOXIDE 27 mmol/L (21-32); CHLORIDE 103 mmol/L (98-107); CREATININE 2.4 mg/dL (0.6-1.3); GLUCOSE 155 mg/dL (74-106); MAGNESIUM 2.5 mg/dL (1.8-2.4); PHOSPHORUS 5.4 mg/dL (2.5-4.9); POTASSIUM 3.3 mmol/L (3.5-5.1); SODIUM SERUM 139 mmol/L (136-145); UREA NITROGEN, BLOOD 76 mg/dL (7-18)
[2017-12-12 08:20] VITALS: BP 172/64
[2017-12-12] MEDS: METOLAZONE 2.5 MG TABLET PO SCH (08:23)
[2017-12-12] MEDS: ISOSORBIDE DINITRATE (20MG) 20 MG TABLET PO SCH (08:24)
[2017-12-12] MEDS: CARVEDILOL 12.5 MG TABLET PO SCH (08:24)
[2017-12-12] MEDS: ASPIRIN 81 MG TAB.CHEW PO SCH (08:24)
[2017-12-12] MEDS: APIXABAN 2.5 MG TABLET PO SCH (08:24)
[2017-12-12] MEDS ORDERED: hydrALAZINE HCL 50 MG TABLET PO SCH (09:00)
[2017-12-12 09:25] VITALS: BP 101/60
--- NOTE | 2017-12-12 09:25 | NUR ---
MS RN NOTES PATIENT SEEN AND EXAMINED BY DR. CARABALLO, WITH NEW ORDER FOR HYDRALAZINE. OBTAINED PATIENT BLOOD PRESSURE MANUALLY WITH READING OF 101/60. MEDICATION HELD 2 LOW SBP. WILL CONTINUE TO MONITOR
[2017-12-12] MEDS ORDERED: POTASSIUM CHLORIDE 10 MEQ TABLET.SA PO ONE (10:00)
--- NOTE | 2017-12-12 11:00 | NUR ---
MS RN NOTES PATIENT SEEN AND EXAMINED BY DR. FERNANDO, WITH ORDER FOR PATIENT TO DISCHARGE HOME. PATIENT MADE AWARE AND VERBALIZED UNDERSTANDING. VERBALIZED THAT SHE MIGHT LEAVE HOSPITAL AFTER LUNCH SHE STILL NEEDS TO WAIT FOR HER DAUGHTER TO COME TO PICK HER UP. WILL CONTINUE TO MONITOR
[2017-12-12] MEDS: HYDROCODONE/APAP 5/325MG 1 EACH TABLET PO PRN (13:10)
--- NOTE | 2017-12-12 14:56 | NUR ---
MS RN NOTES PATIENT FOR DISCHARGE HOME TODAY. DISCHARGE INSTRUCTIONS AND EDUCATION GIVEN AND VERBALIZED UNDERSTANDING. ALL BELONGINGS COMPLETE ON DISCHARGE. NO REPORT OF MISSING INVENTORY. PATIENT LEFT IN STABLE CONDITION. NO NEW SKIN BREAKDOWN, SKIN INTACT, DRY AND WARM TO TOUCH. NO CHANGES IN LOC NOTED. PATIENT AFEBRILE, SKIN DRY AND WARM TO TOUCH. NO SOB OR ACUTE DISTRESS NOTED. PATIENT CALM AND RELAXED. IV REMOVED WITH MINIMAL BLEEDING NOTED, PRESSURE DRESSING PLACED ON SITE. PATIENT LEFT UNIT AT 1445 BY WHEELCHAIR. ASSISTED WITH TRANSFER. LEFT BY PRIVATE CAR WITH DAUGHTER. MD AWARE OF DISCHARGE.
== END 2017-12-12 14:40 | disposition home health service (06) | DRG 682 ==
LOC: ER 16:29 → TELE 21:04 → MED 12-09 09:30
PROVIDERS: ADMIT Internal Medicine; ATTEND Internal Medicine Nephrology
DX: N17.9 Acute kidney failure, unspecified (principal); I50.31 Acute diastolic (congestive) heart failure; I13.0 Hypertensive heart and chronic kidney disease with heart failure and stage 1 through stage 4 chronic kidney disease, or unspecified chronic kidney disease; I16.0 Hypertensive urgency; E78.5 Hyperlipidemia, unspecified; I25.10 Atherosclerotic heart disease of native coronary artery without angina pectoris; N18.9 Chronic kidney disease, unspecified; E11.22 Type 2 diabetes mellitus with diabetic chronic kidney disease; E87.6 Hypokalemia; Z85.3 Personal history of malignant neoplasm of breast; Z91.19 Patient's noncompliance with other medical treatment and regimen; Z87.891 Personal history of nicotine dependence; Z82.49 Family history of ischemic heart disease and other diseases of the circulatory system; Z79.82 Long term (current) use of aspirin; Z88.2 Allergy status to sulfonamides; Z79.899 Other long term (current) drug therapy; I48.0 Paroxysmal atrial fibrillation; Z79.01 Long term (current) use of anticoagulants; I25.2 Old myocardial infarction; D64.9 Anemia, unspecified
CPT/HCPCS: 36415; 70450-TC; 71045-TC; 80048-TC; 80061-TC; 82962-TC; 83735-TC; 84100-TC; 84484-TC; 85025-TC; 85730-TC; 87081-TC; A4606; J1815; J3490; Z7610

== ENCOUNTER 2017-12-18 20:02 | Inpatient (IN) | payer MEDICARE, OTHER ==
[~2017-12-18] VITALS: Ht 149.9 cm; Wt 55.8 kg
[~2017-12-18 20:02] MED LIST changes: +EVOL140S SQ
--- NOTE | 2017-12-18 20:12 | NUR ---
DR GALINDO AT BEDSIDE FOR EVAL.
[2017-12-18 20:24] LABS: BASOPHILS % (AUTO) 0.4 % (0.0-2.0); EOSINOPHILS % (AUTO) 0.8 % (0.0-6.0); HEMATOCRIT 21 % (33-45); LYMPHOCYTES # (AUTO) 1.3 /CMM (0.8-4.8); LYMPHOCYTES % (AUTO) 12.7 % (20.0-44.0); MEAN CORPUSCULAR HEMOGLOBIN 28 PG (26.0-33.0); MEAN CORPUSCULAR HGB CONC 33 g/dl (31.0-36.0); MEAN CORPUSCULAR VOLUME 85 fL (82-100); MONOCYTES # (AUTO) 0.6 /CMM (0.1-1.30); MONOCYTES % (AUTO) 5.9 % (2.0-12.0); NEUTROPHILS # (AUTO) 7.9 /CMM (1.8-8.9); NEUTROPHILS % (AUTO) 80.2 % (43.0-81.0); PLATELET COUNT (AUTO) 243 /CMM (150-450); RDW COEFFICIENT OF VARIATION 21.6 (11.5-15.0); RED BLOOD CELL COUNT(AUTO) 2.42 MIL/uL (4.0-5.2); WHITE BLOOD COUNT (AUTO) 9.9 K/uL (4.3-11.0)
[2017-12-18 20:31] LABS: HEMOGLOBIN 6.7 g/dL (11.5-14.8)
[2017-12-18 20:38] LABS: CALCIUM, SERUM 8.6 mg/dL (8.5-10.1); CARBON DIOXIDE 25 mmol/L (21-32); CHLORIDE 99 mmol/L (98-107); CREATININE 2.6 mg/dL (0.6-1.3); POTASSIUM 3.3 mmol/L (3.5-5.1); SODIUM SERUM 135 mmol/L (136-145)
[2017-12-18 20:40] LABS: INR 0.97 (0.85-1.15)
[2017-12-18 20:41] LABS: GLUCOSE 420 mg/dL (74-106); UREA NITROGEN, BLOOD 109 mg/dL (7-18)
[2017-12-18 20:43] LABS: TROPONIN I 0.362 ng/mL (0.00-0.056)
--- NOTE | 2017-12-18 21:06 | NUR ---
DR GALINDO ON THE PHONE WITH DR SCHAFFER MANAGER CALL CENTER CENTRIFUGE SEPARATOR OPERATOR
[2017-12-18] MEDS ORDERED: MORPHINE SULFATE INJ 4 MG/ML DISP.SYRIN ONE (21:08)
--- NOTE | 2017-12-18 21:16 | NUR ---
LEFT FOOT DOPPLER +PULSES
[2017-12-18] MEDS ORDERED: MORPHINE SULFATE INJ 2 MG/ML DISP.SYRIN IV ONE ×2 (21:30→22:30)
--- NOTE | 2017-12-18 21:34 | NUR ---
PAGED COMBINER FOR DR ANDREA FERNANDO
--- NOTE | 2017-12-18 21:38 | NUR ---
PATIENT ASSIGNED TO TELE [id number]
[2017-12-18] MEDS ORDERED: INSULIN ASPART/LISPRO 100 UNIT/ML CARTRIDGE SQ STA (21:59)
[2017-12-18] MEDS ORDERED: ASPIRIN 325 MG TABLET PO ONE (22:00)
--- NOTE | 2017-12-18 22:02 | NUR ---
REPAGED ANDREA FERNANDO FOR ADMISSION
[2017-12-18] MEDS ORDERED: ASPIRIN 325 MG TABLET ONE (22:04)
[2017-12-18] MEDS ORDERED: INSULIN REGULAR, HUMAN 100 UNIT/ML 10 ML VIAL ONE (22:04)
--- NOTE | 2017-12-18 22:15 | NUR ---
DR GALINDO ON THE PHONE WITH DR ASH
[2017-12-18] MEDS ORDERED: HYDROCODONE/APAP 5/325MG 1 EACH TABLET ONE (22:35)
--- NOTE | 2017-12-18 22:50 | NUR ---
REPORT GIVEN TO ALAN CHAUDHRY PT AWAITING TRANSFER TO FLOOR.
[2017-12-18] MEDS ORDERED: HYDROCODONE/APAP 5/325MG 1 EACH TABLET PO ONE (23:00)
--- NOTE | 2017-12-18 23:00 | NUR ---
RN ADMITTING TEL NOTE ADMITTED 72 YR OLD FEMALE, AOX4, ON NC @2LPM, WELL EB SAT 97%, DENIES ANY CHEST PAIN AT THIS TIME, ADMITTED FOR NSTEMI, MONITORING TROPONIN AND BS, DR HARDING PRIMARY AWARE OF PT ADMITTION W/ ORDERS GIVEN. PT HGB 6.7 FOR TRANSFUSSION, 1 UNIT PRBC. IV SITE ON RH#20G, PATENT WELL SECURED, ALL ADMIT ORDERS CARRIED OUT, PT W/NO SKIN ISSUES NOTED, ALL NEEDS ATTENDED,CL W/REACH WELL SAFETY PRECAUTION IN PLACE. WILL CONT TO MONITOR
--- NOTE | 2017-12-18 23:02 | NUR ---
REPEAT ACCUCHECK. 401 mg/dL. DR GRAFF AWARE. NO NEW ORDER AT THIS TIME.
[2017-12-18 23:32] VITALS: BP 115/52
[2017-12-19] VITALS (12 sets, daily range): BP systolic 98–135; BP diastolic 33–74
[2017-12-19 00:07] LABS: LYMPHOCYTES % (MANUAL) 7 % (16-48); MONOCYTES % (MANUAL) 5 % (0-11.0); NEUTROPHILS % (MANUAL) 88 (42-76)
[2017-12-19] MEDS ORDERED: DEXTROSE 50%-WATER 50 ML DISP.SYRIN IV PRN (00:30)
[2017-12-19] MEDS: BLOOD SUGAR DIAGNOSTIC 1 EACH STRIP IN SCH ×5 (01:57→21:14)
[2017-12-19] MEDS: INSULIN REGULAR, HUMAN 100 UNIT/ML 3 ML VIAL SQ PRN ×5 (02:06→21:17)
--- NOTE | 2017-12-19 02:13 | NUR ---
ACCUCHECK REPEATED [address] SHIPLEY AWARE OF ER BS 420. RECHECKED BS 301 COVERED WITH 8UNITS PER MILD SCALE WILL CHECK AGAIN AT 0730AM PT AWAKE NO CHANGE IN CONDITION NOTED. WILL CONT TO MONITOR.
[2017-12-19 07:07] LABS: BASOPHILS % (AUTO) 0.4 % (0.0-2.0); EOSINOPHILS % (AUTO) 1.5 % (0.0-6.0); HEMATOCRIT 28 % (33-45); HEMOGLOBIN 9.3 g/dL (11.5-14.8); LYMPHOCYTES # (AUTO) 1.6 /CMM (0.8-4.8); LYMPHOCYTES % (AUTO) 18.3 % (20.0-44.0); MEAN CORPUSCULAR HEMOGLOBIN 29 PG (26.0-33.0); MEAN CORPUSCULAR HGB CONC 33 g/dl (31.0-36.0); MEAN CORPUSCULAR VOLUME 88 fL (82-100); MONOCYTES # (AUTO) 0.7 /CMM (0.1-1.30); MONOCYTES % (AUTO) 8.6 % (2.0-12.0); NEUTROPHILS # (AUTO) 6.2 /CMM (1.8-8.9); NEUTROPHILS % (AUTO) 71.2 % (43.0-81.0); PLATELET COUNT (AUTO) 217 /CMM (150-450); RDW COEFFICIENT OF VARIATION 19.5 (11.5-15.0); RED BLOOD CELL COUNT(AUTO) 3.23 MIL/uL (4.0-5.2); WHITE BLOOD COUNT (AUTO) 8.7 K/uL (4.3-11.0)
[2017-12-19 07:35] LABS: CALCIUM, SERUM 9.1 mg/dL (8.5-10.1); CARBON DIOXIDE 25 mmol/L (21-32); CHLORIDE 101 mmol/L (98-107); CREATININE 2.5 mg/dL (0.6-1.3); GLUCOSE 176 mg/dL (74-106); MAGNESIUM 2.8 mg/dL (1.8-2.4); PHOSPHORUS 5.2 mg/dL (2.5-4.9); SODIUM SERUM 139 mmol/L (136-145)
[2017-12-19 07:40] LABS: UREA NITROGEN, BLOOD 99 mg/dL (7-18)
--- NOTE | 2017-12-19 08:15 | NUR ---
TELE/RN INITIAL NOTES RECEIVED CHANGE OF ASSIGNMENTS. RECEIVED REPORT FROM ISIDORO TREJO. PER REPORT ACCUCHECK FOR 729 DONE BY PM NURSE, COVERAGE TO BE GIVEN. RECEIVED PT IN BED, A/O X3. NO C/O PAIN AT THIS TIME. SR, HR 74 ON TELE MONITOR. ON 2L O2 VIA NC, TOLERATING WELL, NO SOB NOTED. WITH INTACT AND PATENT RHAND SL, NO SIGNS OF INFECTION NOTED. HOB ELEVATED. SAFETY MEASURES IN PLACED. CALL LIGHT WITHIN REACH. WILL CONT TO MONITOR
[2017-12-19] MEDS ORDERED: POTASSIUM CHLORIDE 20 MEQ TAB.PRT.SR PO ONE (11:45)
[2017-12-19] MEDS: CARVEDILOL 12.5 MG TABLET PO SCH ×2 (12:03→23:38)
[2017-12-19] MEDS: ALPRAZOLAM 0.25 MG TABLET PO PRN (18:06)
--- NOTE | 2017-12-19 19:13 | NUR ---
TELE/RN CLOSING NOTES PT IN STABLE CONDITION. NO ACUTE DISTRESS NOTED AT THIS TIME. SAFETY MEASURES OBSERVED AT ALL TIMES. ALL NEEDS ANTICIPATED. ENDORSED TO PM SHIFT RN FOR DULCE
--- NOTE | 2017-12-19 19:30 | NUR ---
TELE/RN NOTES: RECEIVED PT. IN BED AWAKE ALERT X 2-3. DENIES ANY C/O CHEST PAIN OR SOB AT PRESENT. ON TELE MONITOR W/ SR W/ ELEVATED T WAVES. RH G 20 PATENT AND INTACT W/ NO S/S OF INFECTION/INFILTRATION NOTED. CALL LIGHT W/ REACH. ALL NEEDS MEET. HAS BSC. WILL CONTINUE TO MONITOR.
[2017-12-19] MEDS: HYDROCODONE/APAP 5/325MG 1 EACH TABLET PO PRN (21:57)
[2017-12-19] MEDS ORDERED: ACETAMINOPHEN 325 MG TABLET PO PRN (22:00)
[2017-12-20] VITALS (11 sets, daily range): BP systolic 97–127; BP diastolic 41–57
[2017-12-20 06:47] LABS: EOSINOPHILS % (AUTO) 0.7 % (0.0-6.0); HEMATOCRIT 23 % (33-45); HEMOGLOBIN 7.3 g/dL (11.5-14.8); LYMPHOCYTES % (AUTO) 10.7 % (20.0-44.0); MEAN CORPUSCULAR HEMOGLOBIN 28 PG (26.0-33.0); MEAN CORPUSCULAR HGB CONC 32 g/dl (31.0-36.0); MEAN CORPUSCULAR VOLUME 88 fL (82-100); MONOCYTES # (AUTO) 0.6 /CMM (0.1-1.30); MONOCYTES % (AUTO) 6.4 % (2.0-12.0); NEUTROPHILS # (AUTO) 7.4 /CMM (1.8-8.9); NEUTROPHILS % (AUTO) 82.2 % (43.0-81.0); PLATELET COUNT (AUTO) 164 /CMM (150-450); RDW COEFFICIENT OF VARIATION 20.2 (11.5-15.0); RED BLOOD CELL COUNT(AUTO) 2.61 MIL/uL (4.0-5.2)
[2017-12-20 07:16] LABS: ALANINE AMINOTRANSFERASE 21 U/L (12-78); ALBUMIN 2.3 g/dL (3.4-5.0); ALKALINE PHOSPHATASE 68 U/L (46-116); ASPARTATE AMINOTRANSFERASE 38 U/L (15-37); BILIRUBIN,TOTAL 0.3 mg/dL (0.2-1.0); CALCIUM, SERUM 8.2 mg/dL (8.5-10.1); CARBON DIOXIDE 27 mmol/L (21-32); CHLORIDE 100 mmol/L (98-107); CREATININE 2.7 mg/dL (0.6-1.3); GLUCOSE 226 mg/dL (74-106); MAGNESIUM 2.6 mg/dL (1.8-2.4); PHOSPHORUS 5.7 mg/dL (2.5-4.9); POTASSIUM 3.5 mmol/L (3.5-5.1); SODIUM SERUM 136 mmol/L (136-145); TOTAL PROTEIN, SERUM 5.8 g/dL (6.4-8.2)
[2017-12-20 07:22] LABS: FERRITIN 14 ng/mL (8-388); UREA NITROGEN, BLOOD 97 mg/dL (7-18)
[2017-12-20] MEDS: HYDROCODONE/APAP 5/325MG 1 EACH TABLET PO PRN ×3 (07:25→21:20)
[2017-12-20] MEDS: BLOOD SUGAR DIAGNOSTIC 1 EACH STRIP IN SCH ×4 (07:27→21:44)
--- NOTE | 2017-12-20 07:28 | NUR ---
TELE/RN NOTES: REPORT GIVEN TO AM NURSE FOR DULCE.
[2017-12-20] MEDS: INSULIN REGULAR, HUMAN 100 UNIT/ML 3 ML VIAL SQ PRN ×4 (07:29→21:43)
--- NOTE | 2017-12-20 07:40 | NUR ---
RN NOTE RECEIVED PATIENT AWAKE WATCHING TV. ALERT AND ORIENTED X 2-3, SHE IS ABLE TO MAKE THINGS KNOWN AND VERBALIZE NEEDS. BREATHING AND UNLABORED WITH NO DISTRESS NOTED. ON CONTINUOUS O2 OF 2L SATURATING WELL. ON DYE RANGE OPERATOR CLOTH OF SINUS RHYTHM WITH BBB HR OF 70. ALL SAFETY MEASURES DONE. BED LOW AND LOCKED POSITION. PLACED CALL LIGHT WITHIN REACH. WILL CONTINUE MONITOR
[2017-12-20 07:41] LABS: TROPONIN I 4.667 ng/mL (0.00-0.056)
--- NOTE | 2017-12-20 07:45 | NUR ---
RN NOTE RIMMA FROM LABORATORY CALLED WITH TROPONIN RESULTS OF 4.667. RELAYED LAB RESULT TO MD DR CARABALLO AWAITING FOR FURTHER ORDERS. PAIN DENIES ANY CHEST PAIN AT THIS TIME.
[2017-12-20] MEDS: CARVEDILOL 12.5 MG TABLET PO SCH ×2 (08:18→21:25)
[2017-12-20 08:22] LABS: IRON, SERUM 15 ug/dl (50-175); TOTAL IRON BINDING CAPACITY 354 ug/dl (250-450)
--- NOTE | 2017-12-20 09:30 | NUR ---
RN NOTE SEEN BY DR CARABALLO WITH NEW ORDERS TO TRANSFUSE 1 UNIT OF PRBC. WAITING FOR LAB TO PREPARE BLOOD FOR CUSTOM MILLER. PATIENT MADE AWARE.
[2017-12-20] MEDS: PANTOPRAZOLE 40 MG VIAL IV SCH ×2 (09:50→21:20)
--- NOTE | 2017-12-20 11:20 | NUR ---
RN NOTE STARTED 1 UNIT BLOOD TRANSFUSION ON PATIENT. VITAL SIGNS ARE STABLE. WILL CONTINUE TO MONITOR BLOOD PRESSURE AND REACTIONS THROUGHOUT TRANSFUSION.
--- NOTE | 2017-12-20 12:05 | NUR ---
RN NOTE PATIENT REMAINS STABLE DURING TRANSFUSION WITH NO REACTIONS, VITAL SIGNS ARE STABLE. WILL CONTINUE TO MONITOR.
--- NOTE | 2017-12-20 14:00 | NUR ---
RN NOTE PER DR CARABALLO, HE STATED TO ASK DR SMITH IF IT IS OK TO GIVE CARAFATE TO PATIENT. DR SMTIH STATED "OK TO GIVE CARAFATE", WITH NEW ORDERS CARAFATE QID, CARRIED OUT AND NOTED. PATIENT MADE AWARE.
[2017-12-20] MEDS ORDERED: FUROSEMIDE 40 MG/4 ML VIAL IV ONE (14:12)
--- NOTE | 2017-12-20 14:15 | NUR ---
RN NOTE TRANSFUSION IS COMPLETE. PATIENT REMAINS STABLE WITH NO DISTRESS OR REACTIONS NOTED. WILL CONTINUE TO MONITOR.
[2017-12-20] MEDS: SOD FERRIC GLUC 125 MG in IV NS 0.9% 100 ML IV SCH (15:29)
[2017-12-20] MEDS: SUCRALFATE 1 G TABLET PO SCH ×2 (16:25→21:20)
--- NOTE | 2017-12-20 19:19 | NUR ---
RN NOTE PATIENT REMAINED STABLE THROUGHOUT SHIFT. NO ACUTE DISTRESS OR CHANGES NOTED. WILL ENDORSE TO NEXT SHIFT TO CONTINUE TO MONITOR CONTINUITY OF CARE.
[2017-12-21] VITALS: BP 97/48
[2017-12-21] MEDS: HYDROCODONE/APAP 5/325MG 1 EACH TABLET PO PRN ×3 (03:59→23:06)
[2017-12-21 04:00] VITALS: BP 106/48
[2017-12-21 06:39] LABS: ALANINE AMINOTRANSFERASE 19 U/L (12-78); ALBUMIN 2.3 g/dL (3.4-5.0); ALKALINE PHOSPHATASE 70 U/L (46-116); ASPARTATE AMINOTRANSFERASE 32 U/L (15-37); BILIRUBIN,TOTAL 0.5 mg/dL (0.2-1.0); CALCIUM, SERUM 7.4 mg/dL (8.5-10.1); CARBON DIOXIDE 29 mmol/L (21-32); CHLORIDE 98 mmol/L (98-107); CREATININE 3.3 mg/dL (0.6-1.3); GLUCOSE 205 mg/dL (74-106); MAGNESIUM 2.4 mg/dL (1.8-2.4); PHOSPHORUS 5.7 mg/dL (2.5-4.9); POTASSIUM 3.2 mmol/L (3.5-5.1); SODIUM SERUM 135 mmol/L (136-145); TOTAL PROTEIN, SERUM 5.9 g/dL (6.4-8.2); UREA NITROGEN, BLOOD 96 mg/dL (7-18)
--- NOTE | 2017-12-21 06:56 | NUR ---
RN NOTE PATIENT IS STABLE, NO ACUTE CHANGES NOTED, ALL SAFETY MEASURES TAKEN, TURNED AND REPOSITIONED PATIENT EVERY 2 HOURS, WOUND CARE PROVIDED ORDERED, NO DISTRESS NOTED, WILL ENDORSE TO AM SHIFT TO CONTINUE CARE
[2017-12-21 06:59] LABS: HEMATOCRIT 26 % (33-45); HEMOGLOBIN 8.4 g/dL (11.5-14.8); LYMPHOCYTES # (AUTO) 0.8 /CMM (0.8-4.8); LYMPHOCYTES % (AUTO) 9.4 % (20.0-44.0); MEAN CORPUSCULAR HEMOGLOBIN 29 PG (26.0-33.0); MEAN CORPUSCULAR HGB CONC 33 g/dl (31.0-36.0); MEAN CORPUSCULAR VOLUME 88 fL (82-100); MONOCYTES # (AUTO) 0.6 /CMM (0.1-1.30); MONOCYTES % (AUTO) 7.3 % (2.0-12.0); NEUTROPHILS # (AUTO) 6.7 /CMM (1.8-8.9); NEUTROPHILS % (AUTO) 82.3 % (43.0-81.0); PLATELET COUNT (AUTO) 166 /CMM (150-450); RDW COEFFICIENT OF VARIATION 19.5 (11.5-15.0); RED BLOOD CELL COUNT(AUTO) 2.92 MIL/uL (4.0-5.2); WHITE BLOOD COUNT (AUTO) 8.2 K/uL (4.3-11.0)
--- NOTE | 2017-12-21 07:15 | NUR ---
RN OPENING/TELE NOTES RECEIVED PT. IN BED, A&OX4. BREATHING UNLABORED, AND EVENLY ON OXYGEN AT 3L/MIN VIA NASAL CANNULA. NO S/S ACUTE DISTRESS. BED IS IN LOWEST, AND LOCKED POSITION. 2 SIDE RAILS UP, AND CALL LIGHT WITHIN REACH. ALL NEEDS MET. WILL CONTINUE TO ASSESS AND MONITOR.
[2017-12-21] MEDS: BLOOD SUGAR DIAGNOSTIC 1 EACH STRIP IN SCH ×4 (07:43→21:29)
[2017-12-21] MEDS: INSULIN REGULAR, HUMAN 100 UNIT/ML 3 ML VIAL SQ PRN ×4 (07:48→21:31)
[2017-12-21 08:00] VITALS: BP 108/30
[2017-12-21] MEDS: CARVEDILOL 12.5 MG TABLET PO SCH ×2 (09:00→21:00)
[2017-12-21] MEDS: SUCRALFATE 1 G TABLET PO SCH ×4 (09:14→20:59)
[2017-12-21] MEDS: PANTOPRAZOLE 40 MG VIAL IV SCH ×2 (09:14→20:59)
[2017-12-21 12:00] VITALS: BP 119/42
[2017-12-21] MEDS ORDERED: IV D5/ 0.9% NACL 1,000 ML IV PRN (15:34)
[2017-12-21] MEDS: SOD FERRIC GLUC 125 MG in IV NS 0.9% 100 ML IV SCH (15:38)
[2017-12-21 16:00] VITALS: BP 106/29
--- NOTE | 2017-12-21 19:40 | NUR ---
RN CLOSING/TELE NOTES PT. IS ON A BEDSIDE COMMODE. A&OX4. BREATHING UNLABORED, AND EVENLY ON OXYGEN AT 3L/MIN VIA NASAL CANNULA. IV FLUIDS RUNNING AT 75 ML/HR. NO S/S ACUTE DISTRESS. BED IS IN LOWEST, AND LOCKED POSITION. 2 SIDE RAILS UP, AND CALL LIGHT WITHIN REACH. ALL NEEDS MET. WILL ENDORSE REPORT TO NURSE.
[2017-12-21 20:00] VITALS: BP 118/41
[2017-12-21] MEDS ORDERED: POLYETHYLENE GLYCOL 3350 17 GM POWD.PACK PO SCH (22:00)
[2017-12-22] VITALS: BP 127/53
[2017-12-22 04:00] VITALS: BP 114/37
--- NOTE | 2017-12-22 06:51 | NUR ---
RN NOTE PATIENT RESTED WELL AT NIGHT, NO ACUTE CHANGES NOTED, ALL SAFETY MEASURES TAKEN, WILL ENDORSE TO AM SHIFT TO CONTINUE CARE
[2017-12-22 07:01] LABS: EOSINOPHILS % (AUTO) 1.3 % (0.0-6.0); HEMATOCRIT 27 % (33-45); HEMOGLOBIN 8.6 g/dL (11.5-14.8); LYMPHOCYTES # (AUTO) 0.6 /CMM (0.8-4.8); MEAN CORPUSCULAR HEMOGLOBIN 29 PG (26.0-33.0); MEAN CORPUSCULAR HGB CONC 32 g/dl (31.0-36.0); MEAN CORPUSCULAR VOLUME 90 fL (82-100); MONOCYTES # (AUTO) 0.5 /CMM (0.1-1.30); MONOCYTES % (AUTO) 6.3 % (2.0-12.0); NEUTROPHILS # (AUTO) 7.4 /CMM (1.8-8.9); NEUTROPHILS % (AUTO) 85.4 % (43.0-81.0); PLATELET COUNT (AUTO) 145 /CMM (150-450); RDW COEFFICIENT OF VARIATION 19.5 (11.5-15.0); RED BLOOD CELL COUNT(AUTO) 2.97 MIL/uL (4.0-5.2); WHITE BLOOD COUNT (AUTO) 8.7 K/uL (4.3-11.0)
[2017-12-22 07:08] LABS: ALANINE AMINOTRANSFERASE 16 U/L (12-78); ALBUMIN 2.3 g/dL (3.4-5.0); ALKALINE PHOSPHATASE 72 U/L (46-116); ASPARTATE AMINOTRANSFERASE 22 U/L (15-37); BILIRUBIN,TOTAL 0.5 mg/dL (0.2-1.0); CALCIUM, SERUM 7.7 mg/dL (8.5-10.1); CARBON DIOXIDE 26 mmol/L (21-32); CHLORIDE 98 mmol/L (98-107); CREATININE 3.1 mg/dL (0.6-1.3); GLUCOSE 143 mg/dL (74-106); MAGNESIUM 2.3 mg/dL (1.8-2.4); PHOSPHORUS 5.1 mg/dL (2.5-4.9); POTASSIUM 3.1 mmol/L (3.5-5.1); SODIUM SERUM 136 mmol/L (136-145)
[2017-12-22 07:09] LABS: UREA NITROGEN, BLOOD 87 mg/dL (7-18)
--- NOTE | 2017-12-22 07:15 | NUR ---
VAMP CREASER OPENING NOTES RECEIVED PT IN BED, A&OX4. BREATHING UNLABORED, AND EVENLY ON OXYGEN AT 3L/MIN VIA NASAL CANNULA. NO S/S ACUTE DISTRESS. ON TELE MONITOR WITH SR 62.IV RFA#22. BED IS IN LOWEST, AND LOCKED POSITION. SIDE RAILS UPX3,BED ALARM ON , CALL LIGHT WITHIN REACH. ALL NEEDS MET. WILL CONTINUE TO ASSESS AND MONITOR.
[2017-12-22 08:00] VITALS: BP 113/35
[2017-12-22] MEDS: BLOOD SUGAR DIAGNOSTIC 1 EACH STRIP IN SCH ×2 (08:14→11:41)
[2017-12-22 08:20] VITALS: BP 113/40
[2017-12-22] MEDS: PANTOPRAZOLE 40 MG VIAL IV SCH (08:30)
[2017-12-22] MEDS: SUCRALFATE 1 G TABLET PO SCH ×2 (08:30→12:18)
[2017-12-22] MEDS: HYDROCODONE/APAP 5/325MG 1 EACH TABLET PO PRN (08:31)
[2017-12-22] MEDS: CARVEDILOL 12.5 MG TABLET PO SCH (08:31)
[2017-12-22] MEDS: INSULIN REGULAR, HUMAN 100 UNIT/ML 3 ML VIAL SQ PRN ×2 (08:35→11:42)
--- NOTE | 2017-12-22 09:06 | NUR ---
COPY LATHE OPERATOR NOTES MADE AWARE ABOUT PATIENT C/O PAIN ON L SHOULDER.PATIENT TOLD TO DOCTOR ABOUT HER PAIN.PAIN MEDICATIONS GIVEN.SEEN BY GI DOCTOR ,EXPLAINED ABOUT INTERVENTIONS WITH PRESENCE OF .PATIENT REFUSED EGD.SHE SAID THAT SHE IS NOT READY FOR IT NOW.SHE DONT WANT ANT INTERVENTIONS NOW.WILL FOLLOW UP LATER.
--- NOTE | 2017-12-22 09:06 | NUR ---
ROBOT TECHNICIAN NOTES SEEN BY MADE AWARE ABOUT ABNORMAL LABS INCLUDING LOW POTASSIUM ,HIGH BUN ,CR,PHOSPHORUS ,GOT NEW ORDERS .DIETARY RE EVAL FOR LOW PROTEIN AND ALBUMIN.HE SAID HE WILL PUT NEW ORDERS FOR LABS.MADE AWARE ABOUT LOW DIASTOLIC BP OF 35-40.ASKED TO CONTINUE TO MONITOR.WAITING FOR PT EVAL.
[2017-12-22] MEDS ORDERED: POTASSIUM CHLORIDE 20 MEQ TAB.PRT.SR PO ONE (09:30)
[2017-12-22] MEDS ORDERED: PANT40TA2 PO (09:38)
--- NOTE | 2017-12-22 11:30 | NUR ---
ABORIGINAL EDUCATION WORKER COORDINATOR NOTES CALL MADE TO DAUGHTER JURGEN MADE AWARE ABOUT THE DISCHARGE TO [facility].SHE SAID SHE HAVE CONCERNS ABOUT THE PATIENT DISCHARGE,SO SHE LEFT MESSAGE WITH TO GET INFORMATION REGARDING PATIENT,MADE AWARE IS THE ROUNDING DOCTOR TODAY.SHE SAID SHE WILL CALL BACK THEM AND WILL FOLLOW UP WITH .SEEN BY WITH NEW ORDERS.
[2017-12-22 12:00] VITALS: BP 124/48
--- NOTE | 2017-12-22 12:10 | NUR ---
THREAD LASTER NOTES RELAYED RESULT OF ABG TO GOT NEW ORDER FOR O2 2L VIA NASAL CANULA.CALL MADE TO DAUGHTER,SHE TOLD SHE DID ABLE TO TALK WITH CLEARED ALL HER QUESTIONS. TRANSFERRED PHONE TO PATIENT ROOM FOR FURTHER CONVERSATION.
[2017-12-22] MEDS: ALPRAZOLAM 0.25 MG TABLET PO PRN (12:18)
--- NOTE | 2017-12-22 12:20 | NUR ---
SENIOR MANAGER MERGERS & ACQUISITIONS NOTES MADE LANGSTON ABOUT THE TROPONIN LEVEL,HE TOLD THAT ITS EXPECTED FOR NSTEMI PATIENT.OK TO BE DISCHARGED.
--- NOTE | 2017-12-22 12:40 | NUR ---
EXPLOSIVE MANWOOD CALKER NOTE PATIENT DISCHARGED TO [facility] IN STABLE CONDITION.PICKED UP BY THE AMBULANCE PARAMEDICS.NO SOB NO DISTRESS NOTED.ON O2 VIA NASAL CANULA 2L.REPORT GIVEN TO FACILITY.SPOKE TO IVELISSE CHAUDHRY.REPORT GIVEN TO PARAMEDICS.TOOK ALL THE BELONGINGS BY THE PATIENT AND SIGNED THE BELONGING LIST.DISCHARGE INSTRUCTIONS GIVEN TO THE PATIENT WITH HEALTH EDUCATION,EXPRESSED UNDERSTANDING.SIGNED ALL THE DOCUMENTS BY THE PATIENT .
== END 2017-12-22 12:42 | DRG 377 ==
LOC: ER 20:03 → TELE1 22:44
PROVIDERS: ADMIT Internal Medicine; ATTEND Internal Medicine Nephrology
PROC: 30233N1 Transfusion of Nonautologous Red Blood Cells into Peripheral Vein, Percutaneous Approach (ICD-10-PCS; principal; 2017-12-18)
DX: K92.2 Gastrointestinal hemorrhage, unspecified (principal); I21.A1 Myocardial infarction type 2; I13.0 Hypertensive heart and chronic kidney disease with heart failure and stage 1 through stage 4 chronic kidney disease, or unspecified chronic kidney disease; I50.32 Chronic diastolic (congestive) heart failure; N17.9 Acute kidney failure, unspecified; E11.22 Type 2 diabetes mellitus with diabetic chronic kidney disease; I25.10 Atherosclerotic heart disease of native coronary artery without angina pectoris; I48.91 Unspecified atrial fibrillation; E78.5 Hyperlipidemia, unspecified; J44.9 Chronic obstructive pulmonary disease, unspecified; I25.2 Old myocardial infarction; Z85.3 Personal history of malignant neoplasm of breast; Z88.2 Allergy status to sulfonamides; Z79.4 Long term (current) use of insulin; Z79.82 Long term (current) use of aspirin; Z79.899 Other long term (current) drug therapy; Z91.048 Other nonmedicinal substance allergy status; N18.3 Chronic kidney disease, stage 3 (moderate); K59.00 Constipation, unspecified; Z87.891 Personal history of nicotine dependence; Z95.5 Presence of coronary angioplasty implant and graft; Z91.14 Patient's other noncompliance with medication regimen; Z82.49 Family history of ischemic heart disease and other diseases of the circulatory system; Z79.01 Long term (current) use of anticoagulants; D64.9 Anemia, unspecified; Z87.11 Personal history of peptic ulcer disease
CPT/HCPCS: 36415; 71045-TC; 80048-TC; 80053-TC; 82728-TC; 82962-TC; 83540-TC; 83735-TC; 84100-TC; 84484-TC; 85025-TC; 85730-TC; 86850-TC; 86921-TC; 87081-TC; A4606; C9113; J1815; J1940; J2270; J2916; J7030; J7040; J7042; J7050; P9016-BL; Z7610

== ENCOUNTER 2018-01-13 12:18 | Inpatient (IN) | payer MEDICARE, OTHER ==
[~2018-01-13] VITALS: Ht 134.6 cm; Wt 57.2 kg
[~2018-01-13 12:18] MED LIST changes: -APIX5TAB PO; +PANT40TA2 PO
--- NOTE | 2018-01-13 12:35 | NUR ---
BIB [facility] FOR ELEVATED BUN 123 AND CREATININE 4.6. PATIENT NOT IN DISTRESS. SKIN IS WARM TO TOUCH AND NON DIAPHORETIC. PATIENT IS AFEBRILE. VSS
[2018-01-13] MEDS ORDERED: IV NS 0.9% 1,000 ML BAG IV ONE (13:00)
--- NOTE | 2018-01-13 13:05 | NUR ---
PIANO MOVER AT FOR BLOOD DRAW
[2018-01-13 13:13] LABS: BASOPHILS % (AUTO) 0.2 % (0.0-2.0); EOSINOPHILS % (AUTO) 1.3 % (0.0-6.0); HEMATOCRIT 35 % (33-45); HEMOGLOBIN 11.5 g/dL (11.5-14.8); LYMPHOCYTES # (AUTO) 0.9 /CMM (0.8-4.8); LYMPHOCYTES % (AUTO) 11.2 % (20.0-44.0); MEAN CORPUSCULAR HEMOGLOBIN 29 PG (26.0-33.0); MEAN CORPUSCULAR HGB CONC 33 g/dl (31.0-36.0); MEAN CORPUSCULAR VOLUME 88 fL (82-100); MONOCYTES # (AUTO) 0.5 /CMM (0.1-1.30); MONOCYTES % (AUTO) 6.3 % (2.0-12.0); NEUTROPHILS # (AUTO) 6.6 /CMM (1.8-8.9); PLATELET COUNT (AUTO) 229 /CMM (150-450); RDW COEFFICIENT OF VARIATION 18.9 (11.5-15.0); RED BLOOD CELL COUNT(AUTO) 3.96 MIL/uL (4.0-5.2); WHITE BLOOD COUNT (AUTO) 8.1 K/uL (4.3-11.0)
[2018-01-13 13:29] LABS: ALANINE AMINOTRANSFERASE 18 U/L (12-78); ALBUMIN 2.8 g/dL (3.4-5.0); ALKALINE PHOSPHATASE 88 U/L (46-116); ASPARTATE AMINOTRANSFERASE 13 U/L (15-37); BILIRUBIN,DIRECT 0.1 mg/dL (0.0-0.2); BILIRUBIN,TOTAL 0.2 mg/dL (0.2-1.0); CALCIUM, SERUM 8.9 mg/dL (8.5-10.1); CARBON DIOXIDE 26 mmol/L (21-32); CHLORIDE 99 mmol/L (98-107); GLUCOSE 238 mg/dL (74-106); SODIUM SERUM 138 mmol/L (136-145); TOTAL PROTEIN, SERUM 6.9 g/dL (6.4-8.2)
[2018-01-13 13:30] LABS: INR 0.98 (0.85-1.15)
[2018-01-13 13:31] LABS: TROPONIN I < 0.017 ng/mL (0.00-0.056)
[2018-01-13 13:32] LABS: UREA NITROGEN, BLOOD 124 mg/dL (7-18)
[2018-01-13 13:55] LABS: APPEARANCE,URINE Clear (CLEAR); BILIRUBIN,URINE Negative (NEGATIVE); BLOOD, URINE Negative Ery/uL (NEGATIVE); COLOR,URINE Yellow (YELLOW); KETONES,URINE Negative (NEGATIVE); LEUKOCYTE ESTERASE ,URINE Negative (NEGATIVE); NITRITE, URINE Negative (NEGATIVE); PH,URINE 5.5 (5.0-8.0); PROTEIN,URINE >=300 mg/dl (NEGATIVE); UGLUCOSE 100 MG/DL mg/dL (NEGATIVE); UROBILINOGEN,URINE 0.2 EU/dL (0.2)
--- NOTE | 2018-01-13 13:59 | NUR ---
NOTIFIED NURSING HEATSET WINDER OPERATOR TO FIND TELE BED FOR THIS PATIENT
--- NOTE | 2018-01-13 14:17 | NUR ---
PT IS ASSIGNED TO [facility] RM#: [id number], DX: RENAL FAILURE, AND ACCEPTING: [facility] DNP
--- NOTE | 2018-01-13 14:28 | NUR ---
PAGED DR FERNANDO FOR CONSULT FOR THIS PATIENT
--- NOTE | 2018-01-13 14:29 | NUR ---
REPORT GIVEN TO FLOOR RN FOR DULCE
[2018-01-13] MEDS ORDERED: INSU100I4 SQ (15:43)
[2018-01-13] MEDS ORDERED: MAGN400O6 PO (15:43)
[2018-01-13] MEDS ORDERED: ACET325T53 PO (15:43)
[2018-01-13] MEDS ORDERED: FERR325T23 PO (15:43)
--- NOTE | 2018-01-13 16:15 | NUR ---
T/D NURSE NOTES RECEIVED PATIENT ALERT AND ORIENTED, BREATHING UNLABORED, NO COMPLAINS OF PAIN. SKIN WARM TO TOUCH, INITIAL VITAL SIGNS FOLLOWS BP 141/43, HR AT 81, RR AT 18, TEMP AT 97.8, G 20 IV LINE ON THE RIGHT HAND, PATIENT AMBULATORY, CALL LIGHT KEEP IN EASY REACH, BED LOW AND LOCKED. WILL CONTINUE TO MONITOR
[2018-01-13 17:00] VITALS: BP 141/37
[2018-01-13] MEDS ORDERED: IV NS 0.9% 1,000 ML IV PRN (17:00)
--- NOTE | 2018-01-13 20:00 | NUR ---
FELICITAS RN NOTES RECEIVED PATIENT IN BED, ALERT AND ORIENTED X3, BREATHING UNLABORED, NO COMPLAINS OF PAIN OS ANY SOB. SKIN WARM TO TOUCH, G 20 IV LINE ON THE RIGHT HAND IS PATIENT, INTACT WITH IV FLUIDS N.S @75ML/HR. PATIENT IS AMBULATORY, CALL LIGHT KEEP IN EASY REACH, BED LOW AND LOCKED. WILL CONTINUE TO MONITOR.
[2018-01-13] MEDS ORDERED: hydrALAZINE HCL 50 MG TABLET PO PRN (21:00)
[2018-01-13] MEDS ORDERED: INSULIN ASPART/LISPRO 100 UNIT/ML CARTRIDGE SQ PRN (21:00)
[2018-01-13] MEDS ORDERED: ACETAMINOPHEN 325 MG TABLET PO PRN (21:00)
[2018-01-13] MEDS ORDERED: MAGNESIUM HYDROXIDE 30 ML UDC PO PRN (21:00)
[2018-01-13] MEDS ORDERED: DEXTROSE 50%-WATER 50 ML DISP.SYRIN IV PRN (21:30)
[2018-01-13] MEDS: CARVEDILOL 12.5 MG TABLET PO SCH (21:56)
[2018-01-13] MEDS: ALPRAZOLAM 0.25 MG TABLET PO PRN (22:02)
[2018-01-14] MEDS ORDERED: DEXTROSE 50%-WATER 50 ML DISP.SYRIN IV PRN
[2018-01-14] MEDS ORDERED: BLOOD SUGAR DIAGNOSTIC 1 EACH STRIP IN SCH
[2018-01-14] MEDS: BLOOD SUGAR DIAGNOSTIC 1 EACH STRIP IN SCH ×4 (00:35→17:48)
[2018-01-14] MEDS: INSULIN REGULAR, HUMAN 100 UNIT/ML 3 ML VIAL SQ PRN ×3 (00:41→17:52)
[2018-01-14 01:06] LABS: CREATININE, URINE 39.9 MG/DL (30.0-125.0)
[2018-01-14 04:00] VITALS: BP 126/51
[2018-01-14 06:39] LABS: BASOPHILS % (AUTO) 0.2 % (0.0-2.0); EOSINOPHILS % (AUTO) 1.9 % (0.0-6.0); HEMATOCRIT 33 % (33-45); HEMOGLOBIN 10.7 g/dL (11.5-14.8); LYMPHOCYTES # (AUTO) 0.8 /CMM (0.8-4.8); LYMPHOCYTES % (AUTO) 14.5 % (20.0-44.0); MEAN CORPUSCULAR HEMOGLOBIN 29 PG (26.0-33.0); MEAN CORPUSCULAR HGB CONC 32 g/dl (31.0-36.0); MEAN CORPUSCULAR VOLUME 92 fL (82-100); MONOCYTES # (AUTO) 0.6 /CMM (0.1-1.30); NEUTROPHILS # (AUTO) 3.9 /CMM (1.8-8.9); NEUTROPHILS % (AUTO) 72.4 % (43.0-81.0); PLATELET COUNT (AUTO) 168 /CMM (150-450); RDW COEFFICIENT OF VARIATION 20.4 (11.5-15.0); RED BLOOD CELL COUNT(AUTO) 3.65 MIL/uL (4.0-5.2); WHITE BLOOD COUNT (AUTO) 5.4 K/uL (4.3-11.0)
[2018-01-14 07:22] LABS: CALCIUM, SERUM 8.8 mg/dL (8.5-10.1); CARBON DIOXIDE 26 mmol/L (21-32); CHLORIDE 104 mmol/L (98-107); GLUCOSE 69 mg/dL (74-106); MAGNESIUM 2.2 mg/dL (1.8-2.4); PHOSPHORUS 4.7 mg/dL (2.5-4.9); SODIUM SERUM 143 mmol/L (136-145)
[2018-01-14 07:28] LABS: POTASSIUM 2.8 mmol/L (3.5-5.1)
[2018-01-14 07:29] LABS: UREA NITROGEN, BLOOD 102 mg/dL (7-18)
[2018-01-14 08:00] VITALS: BP 130/51
[2018-01-14] MEDS: FERROUS SULFATE (325 MG) 325 MG/TAB TABLET PO SCH ×2 (08:42→17:49)
[2018-01-14] MEDS: PANTOPRAZOLE 40 MG TABLET.DR PO SCH ×2 (08:42→17:49)
[2018-01-14] MEDS: ISOSORBIDE DINITRATE (10MG) 10 MG TABLET PO SCH (08:43)
[2018-01-14] MEDS: CARVEDILOL 12.5 MG TABLET PO SCH ×2 (08:47→20:42)
[2018-01-14] MEDS: AMLODIPINE BESYLATE 10 MG TABLET PO SCH (08:50)
[2018-01-14] MEDS ORDERED: POTASSIUM CHLORIDE 20 MEQ TAB.PRT.SR PO ONE (09:00)
[2018-01-14 10:07] LABS: APPEARANCE,URINE CLEAR (CLEAR); BILIRUBIN,URINE NEGATIVE (NEGATIVE); BLOOD, URINE NEGATIVE Ery/uL (NEGATIVE); COLOR,URINE YELLOW (YELLOW); KETONES,URINE NEGATIVE (NEGATIVE); LEUKOCYTE ESTERASE ,URINE NEGATIVE (NEGATIVE); NITRITE, URINE NEGATIVE (NEGATIVE); PROTEIN,URINE 2+ mg/dl (NEGATIVE); UGLUCOSE NEGATIVE (NEGATIVE); UROBILINOGEN,URINE 0.2 EU/dL (0.2)
[2018-01-14 10:19] LABS: CREATININE, URINE 57.6 MG/DL (30.0-125.0); URINE TOTAL PROTEIN 319.8 mg/dL (0-11.9)
[2018-01-14 11:00] LABS: EOSINOPHIL,URINE None Seen
[2018-01-14 11:29] LABS: BACTERIA,URINE Rare /HPF (None Seen); RBC,URINE 0-2 /HPF (0-2); SQUAMOUS EPITHELIAL CELL,UR Few /HPF (None Seen)
[2018-01-14 16:00] VITALS: BP 134/51
[2018-01-14] MEDS: HYDROCODONE/APAP 5/325MG 1 EACH TABLET PO PRN (17:49)
--- NOTE | 2018-01-14 19:04 | NUR ---
RN NOTE PT REMAINED STABLE DURING DAY SHIFT, US KIDNEYS DONE, RESLUT RELLAYED TO DR MOSQUERA, HE ORDERED CT ABDOMEN, XRAY OF L SHOULDER IS DONE, NO FRACTURE/DISPLACEMENT, PO INTAKE ADEQUATE, PAIN ADDRESSED ORDERED, WILL ENDORSE TO PRINTED CIRCUIT PHOTOGRAPHER.
--- NOTE | 2018-01-14 19:51 | NUR ---
RN OPENING NOTES RECEIVED REPORT FROM NEIL CHAUDHRY. PATIENT A/A/O X3, ABLE TO MAKE NEEDS KNOWN & STATE PAIN. BREATHING EVEN & UNLABORED, TOLERATING ROOM AIR DENIES ANY SOB OR DIFFICULTY BREATHING. PULSES PRESENT & BOUNDING. RIGHT HAND IV INTACT & PATENT W/ DRESSING CDI, SALINE LOCKED. NO SIGNS OF INFILTRATION NOTED. DENIES ANY PAIN OR DISCOMFORT @ THIS TIME. SAFETY MEASURES IN PLACE W/ CALL LIGHT WITHIN REACH. INSTRUCTED TO CALL FOR ASSISTANCE. ABLE TO AMBULATE TO BATHROOM INDEPENDENTLY. WILL CONTINUE TO MONITOR.
[2018-01-14 20:00] VITALS: BP 116/30
[2018-01-14] MEDS: ALPRAZOLAM 0.25 MG TABLET PO PRN (20:45)
--- NOTE | 2018-01-14 21:00 | NUR ---
RN NOTES PATIENT DROPPED 2ND PILL OF CARVEDILOL TABLET ON THE FLOOR, INTENDED DOSE IS 2 TABS = 25MG. TOOK OUT ANOTHER 12.5 MG DOSE FROM [facility] TO REPLACE IT. CHARGE NURSE MADE AWARE.
[2018-01-15] MEDS: BLOOD SUGAR DIAGNOSTIC 1 EACH STRIP IN SCH ×5 (00:16→23:40)
[2018-01-15] MEDS: INSULIN REGULAR, HUMAN 100 UNIT/ML 3 ML VIAL SQ PRN ×5 (00:20→23:44)
[2018-01-15 04:00] VITALS: BP 134/43
--- NOTE | 2018-01-15 06:54 | NUR ---
RN NOTES PATIENT REFUSED TO CHANGE BED LINENS. OFFERED TO ASSIST W/ SELF-CARE BUT ALSO REFUSED. OFFERED X2 DURING SHIFT.
[2018-01-15 06:59] LABS: BASOPHILS % (AUTO) 0.5 % (0.0-2.0); EOSINOPHILS % (AUTO) 2.6 % (0.0-6.0); HEMATOCRIT 33 % (33-45); HEMOGLOBIN 10.5 g/dL (11.5-14.8); LYMPHOCYTES # (AUTO) 0.9 /CMM (0.8-4.8); LYMPHOCYTES % (AUTO) 17.2 % (20.0-44.0); MEAN CORPUSCULAR HEMOGLOBIN 29 PG (26.0-33.0); MEAN CORPUSCULAR HGB CONC 32 g/dl (31.0-36.0); MEAN CORPUSCULAR VOLUME 92 fL (82-100); MONOCYTES # (AUTO) 0.5 /CMM (0.1-1.30); MONOCYTES % (AUTO) 9.1 % (2.0-12.0); NEUTROPHILS # (AUTO) 3.7 /CMM (1.8-8.9); NEUTROPHILS % (AUTO) 70.6 % (43.0-81.0); PLATELET COUNT (AUTO) 174 /CMM (150-450); RDW COEFFICIENT OF VARIATION 20.3 (11.5-15.0); RED BLOOD CELL COUNT(AUTO) 3.59 MIL/uL (4.0-5.2); WHITE BLOOD COUNT (AUTO) 5.3 K/uL (4.3-11.0)
[2018-01-15 07:05] LABS: CREATINE KINASE, TOTAL 28 U/L (26-192)
--- NOTE | 2018-01-15 07:06 | NUR ---
RN NOTES PATIENT STATED IV ACCIDENTALLY CAME OUT IN THE BATHROOM. WILL ENDORSE TO TO AM NURSE.
--- NOTE | 2018-01-15 07:15 | NUR ---
RN OPENING NOTES PATIENT RESTING IN BED. NONLABORED BREATHING NOTED ON ROOM AIR. DENYING PAIN. NO IV SITE AT THE MOMENT. ENDORSED BY PREVIOUS SHIFT THAT IV GOT DISLODGED, WILL INSERT ANOTHER ONE. PATIENT DENYING PAIN. FALL PRECUATIONS IMPLEMENTED
[2018-01-15 07:29] LABS: ALANINE AMINOTRANSFERASE 19 U/L (12-78); ALBUMIN 2.7 g/dL (3.4-5.0); ALKALINE PHOSPHATASE 79 U/L (46-116); ASPARTATE AMINOTRANSFERASE 19 U/L (15-37); BILIRUBIN,TOTAL 0.3 mg/dL (0.2-1.0); CALCIUM, SERUM 8.9 mg/dL (8.5-10.1); CARBON DIOXIDE 25 mmol/L (21-32); CHLORIDE 106 mmol/L (98-107); CREATININE 2.8 mg/dL (0.6-1.3); GLUCOSE 128 mg/dL (74-106); MAGNESIUM 2.2 mg/dL (1.8-2.4); PHOSPHORUS 4.5 mg/dL (2.5-4.9); POTASSIUM 3.4 mmol/L (3.5-5.1); SODIUM SERUM 143 mmol/L (136-145); TOTAL PROTEIN, SERUM 6.6 g/dL (6.4-8.2)
[2018-01-15 07:43] LABS: UREA NITROGEN, BLOOD 94 mg/dL (7-18)
[2018-01-15 08:00] VITALS: BP 149/41
[2018-01-15 08:53] VITALS: BP 142/42
--- NOTE | 2018-01-15 08:54 | NUR ---
PATIENT DENYING DIZZINESS. EDUCATED HANDBAG PARTS CUTTER LIGHT USAGE. FALL PRECUATION IMPLEMENTED
[2018-01-15] MEDS: FERROUS SULFATE (325 MG) 325 MG/TAB TABLET PO SCH ×2 (08:57→17:01)
[2018-01-15] MEDS: PANTOPRAZOLE 40 MG TABLET.DR PO SCH ×2 (08:58→17:01)
[2018-01-15] MEDS: CARVEDILOL 12.5 MG TABLET PO SCH ×2 (09:00→21:31)
[2018-01-15] MEDS: ISOSORBIDE DINITRATE (10MG) 10 MG TABLET PO SCH (09:00)
[2018-01-15] MEDS: AMLODIPINE BESYLATE 10 MG TABLET PO SCH (09:00)
[2018-01-15] MEDS: HYDROCODONE/APAP 5/325MG 1 EACH TABLET PO PRN ×2 (15:19→20:02)
[2018-01-15 16:00] VITALS: BP 143/44
--- NOTE | 2018-01-15 16:48 | NUR ---
PER DR FERNANDO, NO K REPLACEMENT TODAY NOTIFIED OF K LEVEL TODAY
--- NOTE | 2018-01-15 18:49 | NUR ---
NO SIGNS OF BLEEDING DURING SHIFT
--- NOTE | 2018-01-15 19:20 | NUR ---
RN CLOSING NOTES PATIENT RESTING IN BED. NONLABORED BREATHING NOTED ON ROOM AIR. DENYING PAIN. IV SITE STARTED AT 0810 ON RIGHT HAND GAUGE 22. NO CHANGES DURING SHIFT
--- NOTE | 2018-01-15 19:42 | NUR ---
RN OPENING NOTES RECEIVED REPORT FROM ZOYA CHAUDHRY. PATIENT A/A/O X3, ABLE TO MAKE NEEDS KNOWN & STATE PAIN. BREATHING EVEN & UNLABORED, TOLERATING ROOM AIR, DENIES ANY SOB OR DIFFICULTY BREATHING. PULSES PRESENT & BOUNDING. RIGHT HAND IV #20 INTACT & PATENT W/ DRESSING CDI, SALINE LOCKED. NO SIGNS OF INFILTRATION NOTED. C/O UPPER LEFT SHOULDER PAIN, NORCO PRN TO BE GIVEN. SAFETY MEASURES IN PLACE W/ CALL LIGHT WITHIN REACH. INSTRUCTED TO CALL FOR ASSISTANCE. ABLE TO AMBULATE TO BATHROOM INDEPENDENTLY. WILL CONTINUE TO MONITOR.
[2018-01-15] MEDS: ALPRAZOLAM 0.25 MG TABLET PO PRN (21:31)
[2018-01-15 22:00] VITALS: BP 127/54
[2018-01-16] MEDS: BLOOD SUGAR DIAGNOSTIC 1 EACH STRIP IN SCH ×3 (05:41→17:36)
[2018-01-16] MEDS: INSULIN REGULAR, HUMAN 100 UNIT/ML 3 ML VIAL SQ PRN ×2 (05:41→11:58)
[2018-01-16 06:00] VITALS: BP 128/56
[2018-01-16] MEDS: HYDROCODONE/APAP 5/325MG 1 EACH TABLET PO PRN ×2 (06:40→13:25)
[2018-01-16 07:11] LABS: BASOPHILS % (AUTO) 0.1 % (0.0-2.0); EOSINOPHILS % (AUTO) 2.2 % (0.0-6.0); HEMATOCRIT 36 % (33-45); HEMOGLOBIN 11.6 g/dL (11.5-14.8); LYMPHOCYTES # (AUTO) 0.7 /CMM (0.8-4.8); LYMPHOCYTES % (AUTO) 11.9 % (20.0-44.0); MEAN CORPUSCULAR HEMOGLOBIN 30 PG (26.0-33.0); MEAN CORPUSCULAR HGB CONC 32 g/dl (31.0-36.0); MEAN CORPUSCULAR VOLUME 91 fL (82-100); MONOCYTES # (AUTO) 0.6 /CMM (0.1-1.30); MONOCYTES % (AUTO) 10.4 % (2.0-12.0); NEUTROPHILS # (AUTO) 4.3 /CMM (1.8-8.9); NEUTROPHILS % (AUTO) 75.4 % (43.0-81.0); PLATELET COUNT (AUTO) 173 /CMM (150-450); RDW COEFFICIENT OF VARIATION 20.6 (11.5-15.0); RED BLOOD CELL COUNT(AUTO) 3.92 MIL/uL (4.0-5.2); WHITE BLOOD COUNT (AUTO) 5.7 K/uL (4.3-11.0)
[2018-01-16 07:22] LABS: CALCIUM, SERUM 9.5 mg/dL (8.5-10.1); CARBON DIOXIDE 28 mmol/L (21-32); CHLORIDE 106 mmol/L (98-107); CREATININE 2.7 mg/dL (0.6-1.3); GLUCOSE 140 mg/dL (74-106); MAGNESIUM 2.1 mg/dL (1.8-2.4); PHOSPHORUS 4.2 mg/dL (2.5-4.9); POTASSIUM 3.5 mmol/L (3.5-5.1); SODIUM SERUM 144 mmol/L (136-145); UREA NITROGEN, BLOOD 79 mg/dL (7-18)
[2018-01-16 08:00] VITALS: BP 148/51
[2018-01-16] MEDS: PANTOPRAZOLE 40 MG TABLET.DR PO SCH ×2 (08:18→16:13)
[2018-01-16] MEDS: FERROUS SULFATE (325 MG) 325 MG/TAB TABLET PO SCH ×2 (08:18→16:13)
[2018-01-16] MEDS: CARVEDILOL 12.5 MG TABLET PO SCH (08:20)
[2018-01-16] MEDS: AMLODIPINE BESYLATE 10 MG TABLET PO SCH (08:20)
[2018-01-16] MEDS: ISOSORBIDE DINITRATE (10MG) 10 MG TABLET PO SCH (08:20)
[2018-01-16 12:09] LABS: PTH, INTACT 115 pg/mL (15-65)
[2018-01-16 16:00] VITALS: BP 149/70
--- NOTE | 2018-01-16 17:35 | NUR ---
RN NOTE PT AOX4, IN STABLE CONDITION DISCHARGED HOME WITH HOME HEALTH PER TRAIN RESERVATION CLERK ARRANGEMENT, DISCHARGE INSTRUCTIONS GIVEN TO PT, EXIT CARE DONE TO PT, TEACHING DONE TO PT, PT VERBALIZED UNDERSTANDING, PRESCRIPTION FAXED TO [facility], PRESCRIPTION PROVIDED TO PT, PAPERS SIGNED AND COPIES LEFT IN CHART, SKIN INTACT, BELONGINGS LIST SIGNED AND PROVIDED TO PT, PT LEFT WITH DAUGHTER JURGEN, VIA OWN TRANSPORTATION. Addendum: 01/16/18 at 1743 by NEIL ABBASI RN IV REMOVED, ID BAND REMOVED.
[2018-01-18 10:14] LABS: *SPE A/G RATIO 1.1 (0.7-1.7); *SPE ALBUMIN 3.1 g/dL (2.9-4.4); *SPE ALPHA-1-GLOBULIN 0.3 g/dL (0.0-0.4); *SPE BETA GLOBULIN 0.9 g/dL (0.7-1.3); *SPE GLOBULIN, TOTAL 2.9 g/dL (2.2-3.9); *SPE M-SPIKE Not Observed g/dL (Not Observed); *SPEGAMMA GLOBULIN 0.8 g/dL (0.4-1.8)
[2018-01-27] MEDS ORDERED: EVOLOCUMAB SQ SCH (09:00)
== END 2018-01-16 17:28 | disposition home health service (06) | DRG 683 ==
LOC: ER 12:21 → TELE1 14:30 → MEDSG1 16:12
PROVIDERS: ADMIT Internal Medicine Nephrology; ATTEND Internal Medicine Nephrology
DX: N17.0 Acute kidney failure with tubular necrosis (principal); I50.32 Chronic diastolic (congestive) heart failure; I13.0 Hypertensive heart and chronic kidney disease with heart failure and stage 1 through stage 4 chronic kidney disease, or unspecified chronic kidney disease; E11.9 Type 2 diabetes mellitus without complications; K21.9 Gastro-esophageal reflux disease without esophagitis; E87.6 Hypokalemia; D64.9 Anemia, unspecified; I25.10 Atherosclerotic heart disease of native coronary artery without angina pectoris; N18.3 Chronic kidney disease, stage 3 (moderate); Z88.2 Allergy status to sulfonamides; Z79.4 Long term (current) use of insulin; Z79.82 Long term (current) use of aspirin; Z79.899 Other long term (current) drug therapy; E11.22 Type 2 diabetes mellitus with diabetic chronic kidney disease; E11.51 Type 2 diabetes mellitus with diabetic peripheral angiopathy without gangrene; E78.5 Hyperlipidemia, unspecified; I25.2 Old myocardial infarction; I48.91 Unspecified atrial fibrillation; Z95.5 Presence of coronary angioplasty implant and graft; Z85.3 Personal history of malignant neoplasm of breast; N13.2 Hydronephrosis with renal and ureteral calculous obstruction
CPT/HCPCS: 36415; 71045-TC; 73030-TC; 76770-TC; 80048-TC; 80053-TC; 80076-TC; 81000-TC; 82550-TC; 82570-TC; 82962-TC; 83735-TC; 83970; 84100-TC; 84155; 84155-TC; 84165; 84300-TC; 84484-TC; 85025-TC; 85730-TC; 87081-TC; 87086-TC; A4606; J1815; J7030; Z7610

== ENCOUNTER 2018-07-28 10:22 | Inpatient (IN) | payer MEDICARE, OTHER ==
[~2018-07-28] VITALS: Ht 160 cm; Wt 54.5 kg
[~2018-07-28 10:22] MED LIST changes: +ACET325T53 PO; -AMLO10TA2 PO; +AMLO10TA7 PO; -ASPI-1169 PO; +FERR325T23 PO; -FURO40TA5 PO; +INSU100I4 SQ; -INSU100V30 SQ; +MAGN400O6 PO; -METO5TAB7 PO
--- NOTE | 2018-07-28 10:22 | NUR ---
BIB [facility] FROM HOME,SOB X 2 DAYS,SPEAKING FULL SENTENCES W/O DIFF. TO ER BED 1, HOOKED TO CARDIAC MONIOTR, REFUSES TO CHANGE INTO GOWN, AWAITING MD NGUYEN
--- NOTE | 2018-07-28 10:22 | NUR ---
DR GOLDEN AT BEDSIDE
[2018-07-28] MEDS ORDERED: ASPIRIN 325 MG TABLET PO ONE (10:30)
[2018-07-28] MEDS ORDERED: ASPIRIN 325 MG TABLET ONE (10:42)
[2018-07-28 10:44] LABS: BASOPHILS # (AUTO) 0.1 /CMM (0.0-0.2); BASOPHILS % (AUTO) 0.7 % (0.0-2.0); EOSINOPHILS % (AUTO) 1.4 % (0.0-6.0); HEMATOCRIT 45 % (33-45); HEMOGLOBIN 14.6 g/dL (11.5-14.8); LYMPHOCYTES % (AUTO) 13.1 % (20.0-44.0); MEAN CORPUSCULAR HGB CONC 33 g/dl (31.0-36.0); MEAN CORPUSCULAR VOLUME 93 fL (82-100); MONOCYTES # (AUTO) 0.5 /CMM (0.1-1.30); MONOCYTES % (AUTO) 6.8 % (2.0-12.0); NEUTROPHILS # (AUTO) 6.1 /CMM (1.8-8.9); PLATELET COUNT (AUTO) 162 /CMM (150-450); RED BLOOD CELL COUNT(AUTO) 4.81 MIL/uL (4.0-5.2); WHITE BLOOD COUNT (AUTO) 7.8 K/uL (4.3-11.0)
[2018-07-28 10:50] LABS: CALCIUM, SERUM 9.4 mg/dL (8.5-10.1); CARBON DIOXIDE 26 mmol/L (21-32); CHLORIDE 107 mmol/L (98-107); CREATININE 2.8 mg/dL (0.6-1.3); GLUCOSE 179 mg/dL (74-106); POTASSIUM 4.4 mmol/L (3.5-5.1); SODIUM SERUM 141 mmol/L (136-145); UREA NITROGEN, BLOOD 38 mg/dL (7-18)
[2018-07-28 11:02] LABS: ALANINE AMINOTRANSFERASE 18 U/L (12-78); ALBUMIN 2.8 g/dL (3.4-5.0); ALKALINE PHOSPHATASE 131 U/L (46-116); ASPARTATE AMINOTRANSFERASE 15 U/L (15-37); B-TYPE NATRIURETIC PEPTIDE 10878 PG/ML (0-125); BILIRUBIN,DIRECT 0.1 mg/dL (0.0-0.2); BILIRUBIN,TOTAL 0.4 mg/dL (0.2-1.0); TOTAL PROTEIN, SERUM 7.3 g/dL (6.4-8.2)
--- NOTE | 2018-07-28 11:21 | NUR ---
GROUP CALLED, CARD HANGER, PAGED TO CALL BACK.
[2018-07-28] MEDS ORDERED: NITROGLYCERIN PACKET 1 GM PACKET TD ONE (11:30)
[2018-07-28] MEDS ORDERED: FUROSEMIDE 20 MG/2 ML VIAL IV ONE (11:30)
[2018-07-28] MEDS ORDERED: FUROSEMIDE 20 MG/2 ML VIAL ONE (11:30)
[2018-07-28] MEDS ORDERED: NITROGLYCERIN PACKET 1 GM PACKET ONE (11:31)
--- NOTE | 2018-07-28 11:35 | NUR ---
CALLED NURSING SUP. FOR TELE BED
[2018-07-28] MEDS ORDERED: PANT40TA4 PO (11:45)
[2018-07-28] MEDS ORDERED: FURO40TA5 PO (11:45)
[2018-07-28] MEDS ORDERED: CLOP75TA15 PO (11:45)
[2018-07-28] MEDS ORDERED: GLIP10TA11 PO (11:45)
[2018-07-28] MEDS ORDERED: APIX2.5T PO (11:45)
[2018-07-28] MEDS ORDERED: CHOL500052 PO (11:45)
--- NOTE | 2018-07-28 11:54 | NUR ---
TELE [id number]
--- NOTE | 2018-07-28 12:35 | NUR ---
REPORT GIVEN TO BELKIS CHAUDHRY FOR DULCE
[2018-07-28 13:00] VITALS: BP 145/111
[2018-07-28] MEDS ORDERED: Z GUARD REMEDY 2 OZ OINT TP PRN (13:00)
[2018-07-28] MEDS ORDERED: MAGNESIUM HYDROXIDE 30 ML UDC PO PRN (13:00)
[2018-07-28] MEDS ORDERED: ACETAMINOPHEN 325 MG TABLET PO PRN ×2 (13:00)
[2018-07-28] MEDS ORDERED: DEXTROSE 50%-WATER 50 ML DISP.SYRIN IV PRN (13:00)
[2018-07-28] MEDS: hydrALAZINE HCL 50 MG TABLET PO SCH ×2 (13:53→17:25)
[2018-07-28] MEDS ORDERED: BUMETANIDE INJ 4 MG in IV D5W 24 ML IV ONE (14:00)
[2018-07-28 16:00] VITALS: BP 152/61
[2018-07-28] MEDS: APIXABAN 2.5 MG TABLET PO SCH (17:00)
[2018-07-28] MEDS: ISOSORBIDE DINITRATE (10MG) 10 MG TABLET PO SCH (17:25)
[2018-07-28] MEDS: HYDROCODONE/APAP 5/325MG 1 EACH TABLET PO PRN (17:26)
[2018-07-28] MEDS: BLOOD SUGAR DIAGNOSTIC 1 EACH STRIP IN SCH ×2 (17:30→21:47)
--- NOTE | 2018-07-28 18:31 | NUR ---
SUPERVISOR MOTORCYCLE REPAIR SHOP NOTES Patient received on 3 L/o2 nasal cannula, patient saturating from the low to mid 90's. Patient refused eliquis around 1730. Patients call light within reach, patient able to go to the bathroom with no assistance. Patient remains on tele monitoring and shows Afib.
--- NOTE | 2018-07-28 18:39 | NUR ---
PHYSICIAN ASSISTANT SURGERY NOTES PT IN BED, AWAKE, ALERT AND ORIENTED, WITH COMPLAINT OF CHEST PAIN 12/01, DUE MEDS GIVEN, NORCO GIVEN ORDERED, REASSESSED PAIN, PT STATED THAT HER CHEST PAIN GOT A LITTLE BETTER, NO SHORTNESS OF BREATH, DR. OCASIO INFORMED, ORDERED STAT EKG AND TROPONIN, PT INFORMED, PT WITH ONGOING BLE DOPPLER AT THIS TIME, CALL LIGHT WITHIN REACH, ALL NEEDS ATTENDED.
[2018-07-28] MEDS: INSULIN REGULAR, HUMAN 100 UNIT/ML 3 ML VIAL SQ PRN ×2 (18:57→22:03)
[2018-07-28 20:00] VITALS: BP 131/51
[2018-07-28] MEDS ORDERED: CARVEDILOL 12.5 MG TABLET PO SCH (21:00)
[2018-07-28] MEDS: CARVEDILOL 12.5 MG TABLET PO SCH (21:47)
[2018-07-29] VITALS (7 sets, daily range): BP systolic 113–143; BP diastolic 45–69
[2018-07-29] MEDS: HYDROCODONE/APAP 5/325MG 1 EACH TABLET PO PRN (00:51)
[2018-07-29] MEDS: ZOLPIDEM TARTRATE 5 MG TABLET PO PRN (01:37)
[2018-07-29] MEDS: ONDANSETRON HCL/PF 4 MG/2 ML VIAL IVP PRN ×3 (05:20→23:48)
[2018-07-29] MEDS: BLOOD SUGAR DIAGNOSTIC 1 EACH STRIP IN SCH ×4 (06:21→21:47)
[2018-07-29] MEDS: INSULIN REGULAR, HUMAN 100 UNIT/ML 3 ML VIAL SQ PRN ×2 (06:22→11:36)
[2018-07-29 06:32] LABS: BASOPHILS % (AUTO) 0.5 % (0.0-2.0); EOSINOPHILS % (AUTO) 2.5 % (0.0-6.0); HEMATOCRIT 39 % (33-45); HEMOGLOBIN 12.8 g/dL (11.5-14.8); LYMPHOCYTES # (AUTO) 0.9 /CMM (0.8-4.8); LYMPHOCYTES % (AUTO) 16.3 % (20.0-44.0); MEAN CORPUSCULAR HGB CONC 32 g/dl (31.0-36.0); MEAN CORPUSCULAR VOLUME 93 fL (82-100); MONOCYTES # (AUTO) 0.4 /CMM (0.1-1.30); MONOCYTES % (AUTO) 7.2 % (2.0-12.0); NEUTROPHILS # (AUTO) 4.2 /CMM (1.8-8.9); NEUTROPHILS % (AUTO) 73.5 % (43.0-81.0); PLATELET COUNT (AUTO) 141 /CMM (150-450); RED BLOOD CELL COUNT(AUTO) 4.22 MIL/uL (4.0-5.2); WHITE BLOOD COUNT (AUTO) 5.7 K/uL (4.3-11.0)
[2018-07-29 06:38] LABS: CALCIUM, SERUM 8.7 mg/dL (8.5-10.1); CARBON DIOXIDE 23 mmol/L (21-32); CHLORIDE 107 mmol/L (98-107); CREATININE 2.9 mg/dL (0.6-1.3); GLUCOSE 148 mg/dL (74-106); MAGNESIUM 2.3 mg/dL (1.8-2.4); PHOSPHORUS 5.5 mg/dL (2.5-4.9); POTASSIUM 4.7 mmol/L (3.5-5.1); SODIUM SERUM 139 mmol/L (136-145); UREA NITROGEN, BLOOD 42 mg/dL (7-18)
--- NOTE | 2018-07-29 06:40 | NUR ---
FEEDER/FOLDER NOTES AWAKE & RESPONSIVE. NOT IN ANY DISTRESS. NO SOB NOTED. DENIES ANY PAIN OR DISCOMFORT AT THIS TIME. ON TELE SR @ 60 WITH IVF INFUSING WELL. MONITORED ACCORDINGLY. CALL LIGHT WITHIN REACH. BED IN LOWEST POSITION. SR UP X 2 FOR SAFETY. WILL ENDORSE TO NEXT SHIFT.
[2018-07-29 06:48] LABS: CHOLESTEROL 200 mg/dL (<200); HDL CHOLESTEROL 48 mg/dL (40-60); LDL 126 mg/dL (0-99); TRIGLYCERIDES 177 mg/dL (30-150)
[2018-07-29] MEDS ORDERED: BUMETANIDE INJ 4 MG in IV D5W 24 ML IV ONE (08:00)
--- NOTE | 2018-07-29 08:00 | NUR ---
RN MS NOTES Patient received on 3L o2 nasal cannula, patient had episodes of SOB, MD aware, patient was desaturating to the low 90's. Patient's call light within reach.
[2018-07-29] MEDS: glipiZIDE 10 MG TABLET PO SCH (08:07)
[2018-07-29] MEDS: hydrALAZINE HCL 50 MG TABLET PO SCH ×3 (08:08→17:35)
[2018-07-29] MEDS: PANTOPRAZOLE 40 MG TABLET.DR PO SCH (08:08)
[2018-07-29] MEDS: CARVEDILOL 12.5 MG TABLET PO SCH ×2 (08:09→21:47)
[2018-07-29] MEDS ORDERED: LEVOFLOXACIN 500 MG /D5W 100ML 500 MG in PREMIX 1 EA IV SCH (08:30)
[2018-07-29] MEDS: METOLAZONE 2.5 MG TABLET PO SCH (09:00)
[2018-07-29] MEDS: CLOPIDOGREL BISULFATE 75 MG TABLET PO SCH (09:00)
[2018-07-29] MEDS: AMLODIPINE BESYLATE 10 MG TABLET PO SCH (09:00)
[2018-07-29] MEDS: APIXABAN 2.5 MG TABLET PO SCH ×2 (09:00→17:00)
[2018-07-29] MEDS: ISOSORBIDE DINITRATE (10MG) 10 MG TABLET PO SCH ×2 (09:00→17:35)
--- NOTE | 2018-07-29 18:47 | NUR ---
RN CLOSING MS NOTES Patient remains on 3 L nasal cannula, denies any chest pain or discomfort at this time, IVF infusing well. Patients call light within in reach, all safety measures in place.
--- NOTE | 2018-07-29 23:22 | NUR ---
MS RN NOTES RECEIVED PT IN BED AWAKE AND ALERT. PT A/O X 4 AND ABLE TO MAKE NEEDS KNOWN. NO S/S OF ACUTE DISTRESS OR SOB NOTED. PT ON 3L VIA NC AND TOLERATED WELL. BREATHING EVEN AND UNLABORED. IV ACCESS PATENT AND INTACT WITH NO REDNESS OR SWELLING NOTED RUNNING 22G ON RIGHT WRIST. SAFETY MEASURES IN PLACE. CALL LIGHT WITHIN REACH. WILL CONTINUE TO MONITOR.
[2018-07-29] MEDS: MAG HYDROX/AL HYDROX/SIMETH 30 ML UDC PO PRN (23:37)
[2018-07-30 06:44] LABS: BASOPHILS % (AUTO) 0.4 % (0.0-2.0); EOSINOPHILS % (AUTO) 2.3 % (0.0-6.0); HEMATOCRIT 38 % (33-45); HEMOGLOBIN 12.6 g/dL (11.5-14.8); LYMPHOCYTES # (AUTO) 0.7 /CMM (0.8-4.8); LYMPHOCYTES % (AUTO) 11.3 % (20.0-44.0); MEAN CORPUSCULAR HGB CONC 33 g/dl (31.0-36.0); MEAN CORPUSCULAR VOLUME 93 fL (82-100); MONOCYTES # (AUTO) 0.5 /CMM (0.1-1.30); MONOCYTES % (AUTO) 7.4 % (2.0-12.0); NEUTROPHILS # (AUTO) 4.8 /CMM (1.8-8.9); NEUTROPHILS % (AUTO) 78.6 % (43.0-81.0); PLATELET COUNT (AUTO) 129 /CMM (150-450); RED BLOOD CELL COUNT(AUTO) 4.06 MIL/uL (4.0-5.2); WHITE BLOOD COUNT (AUTO) 6.2 K/uL (4.3-11.0)
[2018-07-30 06:46] LABS: ALANINE AMINOTRANSFERASE 15 U/L (12-78); ALBUMIN 2.3 g/dL (3.4-5.0); ALKALINE PHOSPHATASE 103 U/L (46-116); ASPARTATE AMINOTRANSFERASE 9 U/L (15-37); BILIRUBIN,TOTAL 0.3 mg/dL (0.2-1.0); CALCIUM, SERUM 8.3 mg/dL (8.5-10.1); CARBON DIOXIDE 24 mmol/L (21-32); CHLORIDE 105 mmol/L (98-107); CREATININE 3.3 mg/dL (0.6-1.3); GLUCOSE 150 mg/dL (74-106); PHOSPHORUS 5.8 mg/dL (2.5-4.9); SODIUM SERUM 143 mmol/L (136-145); TOTAL PROTEIN, SERUM 6.1 g/dL (6.4-8.2); UREA NITROGEN, BLOOD 54 mg/dL (7-18)
[2018-07-30] MEDS: BLOOD SUGAR DIAGNOSTIC 1 EACH STRIP IN SCH ×4 (07:16→21:00)
--- NOTE | 2018-07-30 07:36 | NUR ---
MS RN NOTES PT IN BED SLEEPING BUT EASILY AWOKEN VERBALLY OR BY TOUCH. PT A/O X 4 AND ABLE TO MAKE NEEDS KNOWN. NO S/S OF ACUTE DISTRESS OR SOB NOTED THROUGHOUT SHIFT. PT ON 3L VIA NC AND TOLERATED WELL. BREATHING EVEN AND UNLABORED. IV ACCESS PATENT AND INTACT WITH NO REDNESS OR SWELLING NOTED RUNNING 22G ON RIGHT WRIST. SAFETY MEASURES IN PLACE. CALL LIGHT WITHIN REACH. WILL ENDORSE TO ONCOMING NURSE FOR CONTINUATION OF CARE.
[2018-07-30 08:00] VITALS: BP 150/63
[2018-07-30] MEDS ORDERED: BUMETANIDE INJ 16 MG in IV NS 0.9% 16 ML IV ONE (08:00)
--- NOTE | 2018-07-30 08:08 | NUR ---
RN NOTES RECEIVED PT IN BED AWAKE AND ALERT. PT A/O X 4 AND ABLE TO MAKE NEEDS KNOWN. NO S/S OF ACUTE DISTRESS. DENIES SOB AT THIS TIME. PATIENT IS ON 3L OXYGEN VIA NASAL CANNULA. IV ACCESS PATENT AND INTACT RUNNING G#22 ON RIGHT WRIST. SAFETY PRECAUTIONS IMPLEMENTED: BED IN LOW POSITION, SIDERAILS UP X2, BED LOCKED, CALL LIGHT WITHIN REACH. WILL CONTINUE TO MONITOR.
[2018-07-30 08:15] LABS: ABG BASE EXCESS -1.7 mmol/L; ABG OXYGEN SATURATION 91.1 % (92.0-98.5); ABG PCO2 43.1 mmHg (35.0-45.0); ABG PH 7.359 (7.350-7.450); ABG PO2 64.1 mmHg (75.0-100.0); AaDO2 99.2 mmHg; MetHb 0.3 % (0.0-1.5); O2Hb 89.9 % (94.0-97.0); SITE, ABG Left Radial; VENT MODE, BG 3L NC
[2018-07-30] MEDS: INSULIN REGULAR, HUMAN 100 UNIT/ML 3 ML VIAL SQ PRN ×4 (08:16→21:07)
[2018-07-30] MEDS: PANTOPRAZOLE 40 MG TABLET.DR PO SCH (08:52)
[2018-07-30] MEDS: glipiZIDE 10 MG TABLET PO SCH (08:57)
[2018-07-30] MEDS: METOLAZONE 2.5 MG TABLET PO SCH (09:00)
[2018-07-30] MEDS: ISOSORBIDE DINITRATE (10MG) 10 MG TABLET PO SCH ×2 (09:00→16:32)
[2018-07-30] MEDS: AMLODIPINE BESYLATE 10 MG TABLET PO SCH (09:00)
[2018-07-30] MEDS: CLOPIDOGREL BISULFATE 75 MG TABLET PO SCH (09:00)
[2018-07-30] MEDS: APIXABAN 2.5 MG TABLET PO SCH ×2 (09:00→16:36)
[2018-07-30] MEDS: CARVEDILOL 12.5 MG TABLET PO SCH ×2 (09:01→21:00)
[2018-07-30] MEDS: hydrALAZINE HCL 50 MG TABLET PO SCH ×3 (10:57→16:32)
--- NOTE | 2018-07-30 12:28 | NUR ---
MS NOTES PATIENT REFUSED PULMONARY FUNCTION WITH VENTILATION TEST. DR. RAM IS AWARE.
[2018-07-30] MEDS ORDERED: METOLAZONE 2.5 MG TABLET PO SCH (13:00)
[2018-07-30 16:00] VITALS: BP 106/34
[2018-07-30] MEDS: HYDROCODONE/APAP 5/325MG 1 EACH TABLET PO PRN ×2 (16:20→20:56)
--- NOTE | 2018-07-30 18:15 | NUR ---
MS/RN NOTE THE PATIENT ALERT AND ORIENTED X4. RECEIVING OXYGEN 3L/MIN VIA NASAL CANNULA AND SATURATION IS AT 95%. DENIES SOB. RESPIRATION REGULAR AND UNLABORED. HOWEVER, THE PATIENT GETS SOB WITH EXERTION. DENIES PAIN AT THIS TIME. LEFT HAND G24 PATENT WITH NO S/S INFILTRATION. GOOD AND GENTLE SKIN CARE RENDERED. ALL NEEDS ATTENDED. BED LOW AND LOCKED. SIDE RAILS UP X3. CALL LIGHT WITHIN REACH. WILL ENDORSE TO FARM LOAN REPRESENTATIVE.
--- NOTE | 2018-07-30 20:05 | NUR ---
MS RN NOTES RECEIVED PATIENT ASLEEP IN BED WITH NO DISTRESS NOTED. CALL LIGHT WITHIN REACH. PERIPHERAL LINE INTACT AND PATENT. NO C/O PAIN OR DISCOMFORT. BED IN LOW LOCK SETTING. ROOM FREE OF CLUTTER AND BELONGINGS KEPT NEAR BEDSIDE. WILL CONTINUE TO MONITOR.
[2018-07-30 20:29] VITALS: BP 100/44
[2018-07-30] MEDS: ZOLPIDEM TARTRATE 5 MG TABLET PO PRN (22:28)
[2018-07-31] MEDS: HYDROCODONE/APAP 5/325MG 1 EACH TABLET PO PRN ×2 (02:41→19:29)
[2018-07-31 06:37] LABS: BASOPHILS % (AUTO) 0.3 % (0.0-2.0); EOSINOPHILS % (AUTO) 2.1 % (0.0-6.0); HEMATOCRIT 41 % (33-45); HEMOGLOBIN 13.6 g/dL (11.5-14.8); LYMPHOCYTES # (AUTO) 0.7 /CMM (0.8-4.8); LYMPHOCYTES % (AUTO) 10.7 % (20.0-44.0); MEAN CORPUSCULAR HGB CONC 33 g/dl (31.0-36.0); MEAN CORPUSCULAR VOLUME 93 fL (82-100); MONOCYTES # (AUTO) 0.4 /CMM (0.1-1.30); MONOCYTES % (AUTO) 6.5 % (2.0-12.0); NEUTROPHILS # (AUTO) 4.9 /CMM (1.8-8.9); NEUTROPHILS % (AUTO) 80.4 % (43.0-81.0); PLATELET COUNT (AUTO) 163 /CMM (150-450); RED BLOOD CELL COUNT(AUTO) 4.44 MIL/uL (4.0-5.2); WHITE BLOOD COUNT (AUTO) 6.1 K/uL (4.3-11.0)
[2018-07-31 06:43] LABS: ALANINE AMINOTRANSFERASE 15 U/L (12-78); ALBUMIN 2.7 g/dL (3.4-5.0); ALKALINE PHOSPHATASE 111 U/L (46-116); ASPARTATE AMINOTRANSFERASE 11 U/L (15-37); BILIRUBIN,TOTAL 0.4 mg/dL (0.2-1.0); CALCIUM, SERUM 8.3 mg/dL (8.5-10.1); CARBON DIOXIDE 28 mmol/L (21-32); CHLORIDE 103 mmol/L (98-107); CREATININE 3.2 mg/dL (0.6-1.3); GLUCOSE 148 mg/dL (74-106); MAGNESIUM 1.9 mg/dL (1.8-2.4); PHOSPHORUS 5.3 mg/dL (2.5-4.9); POTASSIUM 3.6 mmol/L (3.5-5.1); SODIUM SERUM 143 mmol/L (136-145); TOTAL PROTEIN, SERUM 7.1 g/dL (6.4-8.2); UREA NITROGEN, BLOOD 55 mg/dL (7-18)
[2018-07-31] MEDS: BLOOD SUGAR DIAGNOSTIC 1 EACH STRIP IN SCH ×4 (07:04→21:28)
[2018-07-31] MEDS ORDERED: BUMETANIDE INJ 16 MG in IV NS 0.9% 16 ML IV ONE (07:30)
--- NOTE | 2018-07-31 07:33 | NUR ---
MS RN NOTES PT IN BED AWAKE AND WATCHING TV. PT A/O X 4 AND ABLE TO MAKE NEEDS KNOWN. NO S/S OF ACUTE DISTRESS OR SOB NOTED THROUGHOUT SHIFT. PT ON 3L VIA NC AND TOLERATED WELL. BREATHING EVEN AND UNLABORED. IV ACCESS PATENT AND INTACT WITH NO REDNESS OR SWELLING NOTED RUNNING 24G ON LEFT HAND SL. SAFETY MEASURES IN PLACE. CALL LIGHT WITHIN REACH. WILL ENDORSE TO ONCOMING NURSE FOR CONTINUATION OF CARE.
--- NOTE | 2018-07-31 07:39 | NUR ---
MS RN NOTES PATIENT RECEIVED RESTING INSIDE ROOM. AWAKE, ALERT AND ORIENTED, VERBALLY RESPONSIVE AND RESPONDS TO VERBAL AND TACTILE STIMULI. BREATHING EVEN AND UNLABORED. NO CHANGES IN LOC NOTED AT THIS TIME. NO ACUTE DISTRESS NOTED. DENIES ANY PAIN OR DISCOMFORT AT THIS TIME. PATIENT CALM AND RELAXED. ON OXYGEN AT 3L/MIN. WILL CONTINUE TO MONITOR. BED LOCKED AND IN LOW POSITION. BILATERAL UPPER SIDE RAILS UP AND LOCKED. CALL LIGHT WITHIN EASY REACH
[2018-07-31 08:00] VITALS: BP 136/57
[2018-07-31] MEDS: LEVOFLOXACIN 500 MG /D5W 100ML 500 MG in PREMIX 1 EA IV SCH (08:03)
[2018-07-31] MEDS: PANTOPRAZOLE 40 MG TABLET.DR PO SCH (08:18)
[2018-07-31] MEDS: glipiZIDE 10 MG TABLET PO SCH (08:18)
[2018-07-31] MEDS: hydrALAZINE HCL 50 MG TABLET PO SCH ×3 (08:18→17:30)
[2018-07-31] MEDS: AMLODIPINE BESYLATE 10 MG TABLET PO SCH (08:23)
[2018-07-31] MEDS: CARVEDILOL 12.5 MG TABLET PO SCH ×2 (08:23→20:53)
[2018-07-31] MEDS: APIXABAN 2.5 MG TABLET PO SCH ×2 (08:23→17:00)
[2018-07-31] MEDS: ISOSORBIDE DINITRATE (10MG) 10 MG TABLET PO SCH ×2 (08:23→17:34)
[2018-07-31] MEDS: CLOPIDOGREL BISULFATE 75 MG TABLET PO SCH (08:24)
[2018-07-31] MEDS: METOLAZONE 2.5 MG TABLET PO SCH (08:24)
--- NOTE | 2018-07-31 09:00 | NUR ---
MS RN NOTES PATIENT REFUSED TO HAVE AM MEDICATIONS, ONLY AGREED TO HAVE PROTONIX, GLIPIZIDE, HYDRALAZINE. RISKS AND BENEFITS EXPLAINED BUT PATIENT INSISTED NOT TO TAKE THEM. RESPECTED PATIENT RIGHTS. MD AWARE. WILL CONTINUE TO MONITOR.
--- NOTE | 2018-07-31 12:49 | NUR ---
MS RN NOTES PATIENT REFUSED TO HAVE HYDRALAZINE .RISKS AND BENEFITS EXPLAINED BUT TO AVAIL, PATIENT VERBALIZED UNDERSTANDING BUT SAID SHE DOES NOT WANT TO HAVE IT NOW. ONGOING BUMETANIDE IV AND INFUSING WELL. WILL CONTINUE TO MONITOR
[2018-07-31 16:00] VITALS: BP 146/56
[2018-07-31] MEDS: INSULIN REGULAR, HUMAN 100 UNIT/ML 3 ML VIAL SQ PRN (17:28)
--- NOTE | 2018-07-31 18:58 | NUR ---
MS RN NOTES PATIENT RESTING INSIDE ROOM. AWAKE, ALERT AND ORIENTED, VERBALLY RESPONSIVE AND RESPONDS TO VERBAL AND TACTILE STIMULI. BREATHING EVEN AND UNLABORED. NO ACUTE DISTRESS NOTED. DENIES ANY PAIN OR DISCOMFORT. PATIENT KEPT CLEAN, DRY AND COMFORTABLE. WILL ENDORSE TO INCOMING SHIFT FOR DULCE. BED LOCKED AND IN LOW POSITION. BILATERAL UPPER SIDE RAILS UP AND LOCKED. CALL LIGHT WITHIN EASY REACH
--- NOTE | 2018-07-31 19:15 | NUR ---
MS RN OPENING NOTES Received patient awake on bed, on O2 inhalation @ 3LPM via NC, no SOB/respiratory distress noted at this time. Patient complaint claimed 9/10 back pain, watching TV, able to eat and drink. Reposition for comfort. Kept bed low and locked, call light at bedside. Administered pain meds as ordered. Will continue to monitor accordingly.
[2018-07-31 20:00] VITALS: BP 138/60
[2018-07-31] MEDS: ZOLPIDEM TARTRATE 5 MG TABLET PO PRN (20:55)
--- NOTE | 2018-07-31 21:00 | NUR ---
RT NOTE STAT EKG RESULTS RELAYED TO RN.
--- NOTE | 2018-07-31 21:29 | NUR ---
MS RN NOTES Patient complained of localized chest pain, rated 9/10. Checked BP 140/71, TX 81. call taker MD Gordon notified with 12-led ECG result. With order to repeat Trop I in AM. Order placed, will continue to monitor patient accordingly.
[2018-08-01] MEDS: HYDROCODONE/APAP 5/325MG 1 EACH TABLET PO PRN ×3 (03:21→19:52)
[2018-08-01] MEDS: ONDANSETRON HCL/PF 4 MG/2 ML VIAL IVP PRN (05:39)
[2018-08-01 06:44] LABS: BASOPHILS % (AUTO) 0.4 % (0.0-2.0); EOSINOPHILS % (AUTO) 2.4 % (0.0-6.0); HEMATOCRIT 38 % (33-45); HEMOGLOBIN 12.5 g/dL (11.5-14.8); LYMPHOCYTES # (AUTO) 0.7 /CMM (0.8-4.8); LYMPHOCYTES % (AUTO) 13.2 % (20.0-44.0); MEAN CORPUSCULAR HGB CONC 33 g/dl (31.0-36.0); MEAN CORPUSCULAR VOLUME 93 fL (82-100); MONOCYTES # (AUTO) 0.4 /CMM (0.1-1.30); MONOCYTES % (AUTO) 8.6 % (2.0-12.0); NEUTROPHILS # (AUTO) 3.9 /CMM (1.8-8.9); NEUTROPHILS % (AUTO) 75.4 % (43.0-81.0); PLATELET COUNT (AUTO) 142 /CMM (150-450); RED BLOOD CELL COUNT(AUTO) 4.11 MIL/uL (4.0-5.2); WHITE BLOOD COUNT (AUTO) 5.1 K/uL (4.3-11.0)
--- NOTE | 2018-08-01 06:47 | NUR ---
MS RN CLOSING NOTES Patient noted asleep at this time. No discomfort noted at this time. All nursing needs attended. Chest pain resolved within the shift. Nausea ceased as medicated. Kept bed low and locked, call light at bedside. Endorsed to the next shift.
[2018-08-01 07:01] LABS: ALANINE AMINOTRANSFERASE 13 U/L (12-78); ALBUMIN 2.3 g/dL (3.4-5.0); ALKALINE PHOSPHATASE 95 U/L (46-116); ASPARTATE AMINOTRANSFERASE 11 U/L (15-37); BILIRUBIN,TOTAL 0.3 mg/dL (0.2-1.0); CALCIUM, SERUM 8.2 mg/dL (8.5-10.1); CARBON DIOXIDE 30 mmol/L (21-32); CHLORIDE 103 mmol/L (98-107); CREATININE 3.3 mg/dL (0.6-1.3); GLUCOSE 133 mg/dL (74-106); MAGNESIUM 1.8 mg/dL (1.8-2.4); PHOSPHORUS 5.1 mg/dL (2.5-4.9); POTASSIUM 3.4 mmol/L (3.5-5.1); SODIUM SERUM 141 mmol/L (136-145); TOTAL PROTEIN, SERUM 6.2 g/dL (6.4-8.2); UREA NITROGEN, BLOOD 55 mg/dL (7-18)
--- NOTE | 2018-08-01 07:32 | NUR ---
MS RN OPENING NOTES RECEIVED PT LAYING IN BED, RESTING COMFORTABLY SITTING IN A 90 DEGREE ANGLE. PT IS AROUSABLE, A/OX4 AFEBRILE. RESPIRATIONS ARE EVEN AND UNLABORED, NOT IN ANY ACUTE DISTRESS NOTED. C/O CHRONIC PAIN TO LOWER BACK, NO C/O SOB, N/V. IV SITE TO LEFT HAND INTACT, NO INFILTRATION NOTED. DRESSING KEPT CLEAN AND DRY. SAFETY MEASURES ARE IN PLACE. INSTRUCTED PT TO USE CALL LIGHT WHEN ASSISTANCE IS NEEDED, CALL LIGHT IS LEFT WITHIN REACH. WILL MONITOR THROUGHOUT SHIFT FOR CONTINUITY OF CARE.
[2018-08-01] MEDS: BLOOD SUGAR DIAGNOSTIC 1 EACH STRIP IN SCH ×4 (07:35→21:26)
[2018-08-01 08:00] VITALS: BP 166/65
[2018-08-01] MEDS: APIXABAN 2.5 MG TABLET PO SCH ×3 (09:00→18:42)
[2018-08-01] MEDS: METOLAZONE 2.5 MG TABLET PO SCH ×2 (09:00→09:37)
[2018-08-01] MEDS: CLOPIDOGREL BISULFATE 75 MG TABLET PO SCH (09:00)
[2018-08-01] MEDS: glipiZIDE 10 MG TABLET PO SCH (09:00)
[2018-08-01] MEDS: PANTOPRAZOLE 40 MG TABLET.DR PO SCH (09:29)
[2018-08-01] MEDS: hydrALAZINE HCL 50 MG TABLET PO SCH ×3 (09:30→17:30)
[2018-08-01] MEDS: AMLODIPINE BESYLATE 10 MG TABLET PO SCH (09:31)
[2018-08-01] MEDS: CARVEDILOL 12.5 MG TABLET PO SCH ×2 (09:31→21:26)
[2018-08-01] MEDS: ISOSORBIDE DINITRATE (10MG) 10 MG TABLET PO SCH ×2 (09:32→17:30)
--- NOTE | 2018-08-01 09:34 | NUR ---
MS RN NOTES-- PT REFUSED TO TAKE GLIPIZIDE, ELIQUIS AND PLAVIX. EDUCATED PT ON THE INDICATIONS AND SIDE EFFECTS OF THE MEDICATIONS , PT STILL NOTED WITH REFUSAL. WILL CONTINUE TO MONITOR CLOSELY.
[2018-08-01] MEDS ORDERED: BUMETANIDE INJ 16 MG in IV NS 0.9% 16 ML IV ONE (10:00)
[2018-08-01] MEDS ORDERED: METOCLOPRAMIDE HCL 10 MG/2 ML VIAL IV PRN (10:00)
[2018-08-01] MEDS: POTASSIUM CHLORIDE 20 MEQ TAB.PRT.SR PO SCH ×2 (10:50→10:51)
--- NOTE | 2018-08-01 18:26 | NUR ---
MS RN CLOSING NOTES ALL DUE MEDS GIVEN, NEEDS MET AND ANTICIPATED. PT IS A/O X4 AFEBRILE. RESPIRATIONS ARE EVEN AND UNLABORED, NOT IN ANY ACUTE DISTRESS NOTED. DENIES ANY CHEST PAIN, NO SOB, N/V NOTED. IV SITE TO LEFT HAND INTACT, NO INFILTRATION NOTED. DRESSING KEPT CLEAN AND DRY. REMINDED PT TO USE CALL LIGHT WHEN ASSISTANCE IS NEEDED, CALL LIGHT IS LEFT WITHIN REACH. WILL ENDORSE TO NEXT SHIFT FOR CONTINUITY OF CARE.
--- NOTE | 2018-08-01 19:40 | NUR ---
RN INITIAL NOTES: RECEIVED REPORT FROM CAPO CHAUDHRY. PT SITTING IN BED, AWAKE, A/O X3, ON 3L OXYGEN VIA NC RESPIRATION EVEN AND UNLABORED, PT HAS LEFT HAND IV G 24, PATENT AND FLUSHING WELL, ON HL. PT FOR SPO2 MONITORING Q1HR ON RA PER PULMO, ON ELIQUIS, PER REPORT MOST OF THE TIME PT REFUSED THE SAID MEDICATION. DISCUSSED PLAN OF CARE TO THE PT. DENIES ANY N/V AT THIS TIME. SAFETY PRECAUTIONS FOR FALL INITIATED, CALL LIGHT IN REACH, WILL CONTINUE MONITORING PT.
[2018-08-01 19:52] VITALS: BP 114/88
--- NOTE | 2018-08-01 19:52 | NUR ---
PRN NORCO: PT C/O GENERALIZED PAIN 12/01 REQUESTING FOR NORCO, ALSO COMPLAINED THAT SHE'S CONSTIPATED FOR 2 DAYS. OFFERED WARM PRUNE JUICE, PRN NORCO 5/325MG TAB PO ADMINISTERED AT THIS TIME. EDUCATE PT REGARDING MEDICATION SIDE EFFECT. VS TAKEN AND RECORDED, 114/88 HR 78 ON 2L SPO2 94%, WILL CONTINUE TO MONITOR AND REASSESS.
[2018-08-01 20:00] VITALS: BP 114/58
--- NOTE | 2018-08-01 20:30 | NUR ---
RN NOTES: CONNECTED PT TO SPO2 MONITORING, WILL CHECK PT'S OXYGENATION ON RA Q1HR AND WILL RECORD IN PT'S CHART
--- NOTE | 2018-08-01 21:08 | NUR ---
RN NOTES: PT INSISTING FOR LYNN CATHETER STATED SHE'S TIRED GETTING IN AND OUT TO THE COMMODE TO URINATE, PT ON LASIX, SPOKED TO TRAPPER ANIMAL MD, RELAYED PT'S REQUEST, PER MD OKAY TO PUT LYNN CATHETER.
[2018-08-01 21:26] VITALS: BP 137/61
[2018-08-01] MEDS: INSULIN REGULAR, HUMAN 100 UNIT/ML 3 ML VIAL SQ PRN (21:31)
--- NOTE | 2018-08-01 21:32 | NUR ---
accu check 148: bs 148, 2units of insulin administered per sliding scale, will monitor for any s/s of hypoglycemia
--- NOTE | 2018-08-01 21:34 | NUR ---
prn mom: pt c/o constipation x2days requesting for medication, prn milk of magnesia administered at this time.
--- NOTE | 2018-08-01 22:25 | NUR ---
rn notes: dixon care provided by rn and traffic monitor specialist, inserted alejo catheter as ordered, pt tolerated procedure well. pt requested for diaper as she stated she doesnt want to have any accident, as she felt like she will move her bowel soon. informed her to call for help so we can assist her to the commode, but pt refused and insist for diaper, compliance attorney aware.
[2018-08-01] MEDS: ZOLPIDEM TARTRATE 5 MG TABLET PO PRN (23:18)
--- NOTE | 2018-08-01 23:18 | NUR ---
PRN AMBIEN: PT REQUESTED FOR SLEEPING PILL, PRN AMBIEN 5 MG TAB PO ADMINISTERED AT THIS TIME,
--- NOTE | 2018-08-01 23:46 | NUR ---
RN NOTES: PT REFUSED TAKING PHOTO OF SACRAL AREA, STATED SHE FELT UNCOMFORTABLE AND DEGRADING. EDUCATION PROVIDED TO PT. NON BLANCHABLE REDNESS NOTED ON SACRAL AREA. REFUSING MEPILEX AND Z GUARD.
[2018-08-02] MEDS: BLOOD SUGAR DIAGNOSTIC 1 EACH STRIP IN SCH ×4 (06:19→21:03)
[2018-08-02] MEDS: INSULIN REGULAR, HUMAN 100 UNIT/ML 3 ML VIAL SQ PRN (06:20)
--- NOTE | 2018-08-02 06:21 | NUR ---
ACCU CHECK 111: BLOOD SUGAR CHECK PERFORMED, RESULT IS 111, NO INSULIN COVERAGE GIVEN PER SLIDING SCALE
[2018-08-02 06:43] LABS: BASOPHILS % (AUTO) 0.4 % (0.0-2.0); EOSINOPHILS % (AUTO) 1.9 % (0.0-6.0); HEMATOCRIT 41 % (33-45); HEMOGLOBIN 13.4 g/dL (11.5-14.8); LYMPHOCYTES # (AUTO) 0.8 /CMM (0.8-4.8); LYMPHOCYTES % (AUTO) 16.5 % (20.0-44.0); MEAN CORPUSCULAR HGB CONC 33 g/dl (31.0-36.0); MEAN CORPUSCULAR VOLUME 93 fL (82-100); MONOCYTES # (AUTO) 0.5 /CMM (0.1-1.30); MONOCYTES % (AUTO) 9.6 % (2.0-12.0); NEUTROPHILS # (AUTO) 3.6 /CMM (1.8-8.9); NEUTROPHILS % (AUTO) 71.6 % (43.0-81.0); PLATELET COUNT (AUTO) 155 /CMM (150-450); RED BLOOD CELL COUNT(AUTO) 4.39 MIL/uL (4.0-5.2)
[2018-08-02 06:45] LABS: CALCIUM, SERUM 8.8 mg/dL (8.5-10.1); CARBON DIOXIDE 33 mmol/L (21-32); CHLORIDE 100 mmol/L (98-107); CREATININE 3.8 mg/dL (0.6-1.3); GLUCOSE 122 mg/dL (74-106); MAGNESIUM 2.4 mg/dL (1.8-2.4); PHOSPHORUS 5.7 mg/dL (2.5-4.9); POTASSIUM 3.7 mmol/L (3.5-5.1); SODIUM SERUM 141 mmol/L (136-145); UREA NITROGEN, BLOOD 66 mg/dL (7-18)
--- NOTE | 2018-08-02 07:26 | NUR ---
RN CLOSING NOTES: PT IN BED, REMAINS ON 3L OXYGEN VIA NC, LYNN CATHETER REMAINS IN PLACED, BAG EMPTIED BY HANDBAG PARTS CUTTER. IV ACCESS REMAINS PATENT AND FLUSHING WELL, ON HL. VS REMAINS STABLE, NEEDS ATTENDED. SAFETY PRECAUTIONS FOR FALL REMAINS ENGAGED, CALL LIGHT IN REACH, WILL ENDORSE TO DAY RN FOR CONTINUITY OF CARE.
--- NOTE | 2018-08-02 07:30 | NUR ---
m/s aviation maintenance technician: initial assessment received pt in bed asleep, but easily arousable. no c/o sob at this time. on o2 at 3l/min via n/c. no acute distress noted. instructed to call for assistance. will continue to monitor.
[2018-08-02 08:00] VITALS: BP 103/50
[2018-08-02] MEDS: hydrALAZINE HCL 50 MG TABLET PO SCH ×3 (08:36→17:00)
[2018-08-02] MEDS: CARVEDILOL 12.5 MG TABLET PO SCH ×2 (08:37→21:00)
[2018-08-02] MEDS: ISOSORBIDE DINITRATE (10MG) 10 MG TABLET PO SCH ×2 (08:39→17:00)
[2018-08-02] MEDS: AMLODIPINE BESYLATE 10 MG TABLET PO SCH (08:39)
[2018-08-02] MEDS: glipiZIDE 10 MG TABLET PO SCH (08:40)
[2018-08-02] MEDS: PANTOPRAZOLE 40 MG TABLET.DR PO SCH (08:40)
[2018-08-02] MEDS: METOLAZONE 2.5 MG TABLET PO SCH (08:40)
[2018-08-02] MEDS: APIXABAN 2.5 MG TABLET PO SCH ×2 (08:43→17:00)
--- NOTE | 2018-08-02 09:00 | NUR ---
m/s worm grower: md visit seen and examined by dr. durham at this time.
[2018-08-02] MEDS: LEVOFLOXACIN 500 MG /D5W 100ML 500 MG in PREMIX 1 EA IV SCH (09:54)
--- NOTE | 2018-08-02 10:17 | NUR ---
m/s robotic welding operator: cardio f/u seen and examined by dr. chang with new orders. orders acknowledged.
[2018-08-02] MEDS ORDERED: BUMETANIDE INJ 16 MG in IV NS 0.9% 16 ML IV ONE (10:30)
[2018-08-02 10:52] LABS: THYROID STIMULATING HORMONE 1.364 uIU/mL (0.358-3.74)
[2018-08-02] MEDS: HYDROCODONE/APAP 5/325MG 1 EACH TABLET PO PRN (12:54)
--- NOTE | 2018-08-02 13:30 | NUR ---
m/s casting wheel operator: nephro f/u seen by dr. chance with new orders. orders acknowledged.
[2018-08-02] MEDS ORDERED: BUMETANIDE INJ 4 MG in IV NS 0.9% 24 ML IV ONE (14:00)
--- NOTE | 2018-08-02 15:22 | NUR ---
m/s round cutter operator: notes pt c/o something off and wants to check her blood sugar. accu check jluc=[id number]. no s/s of hypo/hyperglycemia reaction. instructed to call for assistance. will continue to monitor.
[2018-08-02 16:00] VITALS: BP 101/54
--- NOTE | 2018-08-02 17:01 | NUR ---
m/s income tax adjuster: notes bs check=97. dinner served with hob elevated. instructed to call for assistance. needs attended. will monitor.
--- NOTE | 2018-08-02 19:09 | NUR ---
m/s denture packer: notes report given to fantasma (elena) for continuity of care.
--- NOTE | 2018-08-02 19:30 | NUR ---
MS RN NOTE: PATIENT RESTING IN BED, NO ACUTE DISTRESS NOTED. BREATHING EVEN AND UNLABORED, NO SOB NOTED. OXYGEN VIA NC IN PLACE. LYNN CATHETER IN PLACE, EMPTY AT THIS TIME. IV TO LEFT HAND IN PLACE. BED LOCKED AND IN LOWEST POSITION, CALL LIGHT IN REACH. WILL CONTINUE TO MONITOR.
[2018-08-02 20:00] VITALS: BP 115/66
[2018-08-02] MEDS: ZOLPIDEM TARTRATE 5 MG TABLET PO PRN (21:03)
--- NOTE | 2018-08-02 21:15 | NUR ---
MS RN NOTE: PATIENT BLOOD SUGAR LEVEL 71MG/DL, NO INSULIN NEEDED PER SLIDING SCALE. NO S/S OF HYPOGLYCEMIA NOTED. WILL GIVE PATIENT JUICE AND SNACKS. PATIENT ALSO REQUESTED FOR SLEEPING MEDICATION, AMBIEN 5MG 1 TAB ORAL GIVEN PER MD ORDER. WILL CONTINUE TO MONITOR.
[2018-08-03] MEDS: HYDROCODONE/APAP 5/325MG 1 EACH TABLET PO PRN (01:19)
--- NOTE | 2018-08-03 06:10 | NUR ---
MS RN NOTE: PATIENT RESTING IN BED, NO ACUTE DISTRESS NOTED. BREATHING EVEN AND UNLABORED, NO SOB NOTED. OXYGEN VIA NC IN PLACE. LYNN CATHETER IN PLACE. IV TO LEFT HAND IN PLACE. PATIENT BLOOD SUGAR LEVEL 156 MG/DL, TO RECEIVE 2 UNITS OF INSULIN PER SLIDING SCALE. NO S/S OF HYPER/HYPOGLYCEMIA NOTED. BED LOCKED AND IN LOWEST POSITION, CALL LIGHT IN REACH. WILL ENDORSE TO DAY NURSE TO CONTINUE WITH PLAN OF CARE.
[2018-08-03 06:22] LABS: BASOPHILS % (AUTO) 0.6 % (0.0-2.0); EOSINOPHILS % (AUTO) 2.3 % (0.0-6.0); HEMATOCRIT 43 % (33-45); HEMOGLOBIN 14.5 g/dL (11.5-14.8); LYMPHOCYTES % (AUTO) 15.6 % (20.0-44.0); MEAN CORPUSCULAR HGB CONC 34 g/dl (31.0-36.0); MEAN CORPUSCULAR VOLUME 92 fL (82-100); MONOCYTES # (AUTO) 0.6 /CMM (0.1-1.30); MONOCYTES % (AUTO) 9.7 % (2.0-12.0); NEUTROPHILS # (AUTO) 4.4 /CMM (1.8-8.9); NEUTROPHILS % (AUTO) 71.8 % (43.0-81.0); PLATELET COUNT (AUTO) 173 /CMM (150-450); RED BLOOD CELL COUNT(AUTO) 4.68 MIL/uL (4.0-5.2); WHITE BLOOD COUNT (AUTO) 6.1 K/uL (4.3-11.0)
[2018-08-03] MEDS: MAG HYDROX/AL HYDROX/SIMETH 30 ML UDC PO PRN (06:43)
[2018-08-03] MEDS: BLOOD SUGAR DIAGNOSTIC 1 EACH STRIP IN SCH ×4 (06:44→22:19)
[2018-08-03] MEDS: INSULIN REGULAR, HUMAN 100 UNIT/ML 3 ML VIAL SQ PRN ×3 (06:45→22:25)
[2018-08-03 06:57] LABS: ALANINE AMINOTRANSFERASE 14 U/L (12-78); ALBUMIN 2.7 g/dL (3.4-5.0); ALKALINE PHOSPHATASE 108 U/L (46-116); ASPARTATE AMINOTRANSFERASE 13 U/L (15-37); BILIRUBIN,TOTAL 0.3 mg/dL (0.2-1.0); CALCIUM, SERUM 9.1 mg/dL (8.5-10.1); CARBON DIOXIDE 31 mmol/L (21-32); CHLORIDE 96 mmol/L (98-107); CREATININE 3.9 mg/dL (0.6-1.3); GLUCOSE 162 mg/dL (74-106); MAGNESIUM 2.7 mg/dL (1.8-2.4); PHOSPHORUS 6.9 mg/dL (2.5-4.9); POTASSIUM 3.2 mmol/L (3.5-5.1); SODIUM SERUM 140 mmol/L (136-145); TOTAL PROTEIN, SERUM 7.2 g/dL (6.4-8.2); UREA NITROGEN, BLOOD 79 mg/dL (7-18)
--- NOTE | 2018-08-03 07:33 | NUR ---
MS RN OPENING NOTES RECEIVED PT SITTING UP IN BED, RESTING COMFORTABLY. PT IS AWAKE, A/OX4 AFEBRILE. RESPIRATIONS ARE EVEN AND UNLABORED, NOT IN ANY ACUTE DISTRESS NOTED. C/O CHRONIC PAIN TO LOWER BACK, NO C/O SOB, N/V. IV SITE TO LEFT HAND INTACT, NO INFILTRATION NOTED. DRESSING KEPT CLEAN AND DRY. LYNN CATH IN PLACE, TUBING FREE OF KINKS, DRAINING CLEAR YELLOW URINE W/ NO SEDIMENTS OR HEMATURIA NOTED. SAFETY MEASURES ARE IN PLACE. INSTRUCTED PT TO USE CALL LIGHT WHEN ASSISTANCE IS NEEDED, CALL LIGHT IS LEFT WITHIN REACH. WILL MONITOR THROUGHOUT SHIFT FOR CONTINUITY OF CARE.
[2018-08-03 07:56] VITALS: BP 156/54
[2018-08-03 08:00] VITALS: BP 156/54
[2018-08-03] MEDS: PANTOPRAZOLE 40 MG TABLET.DR PO SCH (08:15)
--- NOTE | 2018-08-03 08:15 | NUR ---
MS RN NOTES-- PT REFUSED ELIQUIS. EXPLAINED THE IMPORTANCE OF TAKING MEDICATIONS, RISKS AND BENEFITS. PT STILL NOTED WITH REFUSAL. HONORED PT'S RIGHTS AND DIGNITY. WILL CONTINUE TO MONITOR.
[2018-08-03] MEDS: ISOSORBIDE DINITRATE (10MG) 10 MG TABLET PO SCH ×2 (08:16→16:40)
[2018-08-03] MEDS: AMLODIPINE BESYLATE 10 MG TABLET PO SCH (08:17)
[2018-08-03] MEDS: glipiZIDE 10 MG TABLET PO SCH (08:17)
[2018-08-03] MEDS: CARVEDILOL 12.5 MG TABLET PO SCH ×2 (08:17→21:00)
[2018-08-03] MEDS: hydrALAZINE HCL 50 MG TABLET PO SCH ×3 (08:17→16:40)
[2018-08-03] MEDS: APIXABAN 2.5 MG TABLET PO SCH ×2 (08:18→16:40)
[2018-08-03] MEDS ORDERED: METOLAZONE 2.5 MG TABLET PO SCH (09:00)
[2018-08-03] MEDS ORDERED: ALPRAZOLAM 0.25 MG TABLET PO PRN (10:00)
[2018-08-03] MEDS: POTASSIUM CHLORIDE 20 MEQ TAB.PRT.SR PO SCH ×3 (10:03→11:57)
--- NOTE | 2018-08-03 13:03 | NUR ---
MS RN NOTES-- PT P/U BY RADIOLOGY FOR NM LUNG PERFUSION SCAN IN STABLE CONDITION VIA WHEELCHAIR.
--- NOTE | 2018-08-03 14:09 | NUR ---
MS RN NOTES-- PT CAME BACK FROM RADIOLOGY IN STABLE CONDITION VIA WHEELCHAIR. NO NEW SKIN ISSUES NOTED.
[2018-08-03 20:00] VITALS: BP 123/62
--- NOTE | 2018-08-03 22:30 | NUR ---
MS RN NOTE: PATIENT BLOOD SUGAR LEVEL 168MG/DL, 3 UNITS OF INSULIN GIVEN PER SLIDING SCALE. NO S/S OF HYPOGLYCEMIA NOTED. WILL CONTINUE TO MONITOR.
--- NOTE | 2018-08-04 06:30 | NUR ---
MS RN NOTE: PATIENT RESTING IN BED, NO ACUTE DISTRESS NOTED. BREATHING EVEN AND UNLABORED, NO SOB NOTED. OXYGEN VIA NC IN PLACE. LYNN CATHETER IN PLACE. IV TO LEFT HAND IN PLACE. PATIENT BLOOD SUGAR LEVEL 272 MG/DL, TO RECEIVE 6 UNITS OF INSULIN PER SLIDING SCALE. NO S/S OF HYPER/HYPOGLYCEMIA NOTED. BED LOCKED AND IN LOWEST POSITION, CALL LIGHT IN REACH. WILL ENDORSE TO DAY NURSE TO CONTINUE WITH PLAN OF CARE.
[2018-08-04 06:42] LABS: BASOPHILS % (AUTO) 0.5 % (0.0-2.0); EOSINOPHILS % (AUTO) 3.6 % (0.0-6.0); HEMATOCRIT 43 % (33-45); HEMOGLOBIN 14.6 g/dL (11.5-14.8); LYMPHOCYTES # (AUTO) 1.2 /CMM (0.8-4.8); LYMPHOCYTES % (AUTO) 19.7 % (20.0-44.0); MEAN CORPUSCULAR HGB CONC 34 g/dl (31.0-36.0); MEAN CORPUSCULAR VOLUME 92 fL (82-100); MONOCYTES # (AUTO) 0.6 /CMM (0.1-1.30); MONOCYTES % (AUTO) 9.4 % (2.0-12.0); NEUTROPHILS # (AUTO) 3.9 /CMM (1.8-8.9); NEUTROPHILS % (AUTO) 66.8 % (43.0-81.0); PLATELET COUNT (AUTO) 164 /CMM (150-450); RED BLOOD CELL COUNT(AUTO) 4.65 MIL/uL (4.0-5.2); WHITE BLOOD COUNT (AUTO) 5.9 K/uL (4.3-11.0)
[2018-08-04] MEDS: BLOOD SUGAR DIAGNOSTIC 1 EACH STRIP IN SCH ×4 (06:52→22:11)
[2018-08-04 06:54] LABS: ALANINE AMINOTRANSFERASE 14 U/L (12-78); ALBUMIN 2.7 g/dL (3.4-5.0); ALKALINE PHOSPHATASE 112 U/L (46-116); ASPARTATE AMINOTRANSFERASE 16 U/L (15-37); BILIRUBIN,TOTAL 0.4 mg/dL (0.2-1.0); CALCIUM, SERUM 9.4 mg/dL (8.5-10.1); CARBON DIOXIDE 31 mmol/L (21-32); CHLORIDE 97 mmol/L (98-107); GLUCOSE 137 mg/dL (74-106); PHOSPHORUS 5.9 mg/dL (2.5-4.9); SODIUM SERUM 141 mmol/L (136-145); TOTAL PROTEIN, SERUM 7.2 g/dL (6.4-8.2)
[2018-08-04] MEDS: INSULIN REGULAR, HUMAN 100 UNIT/ML 3 ML VIAL SQ PRN ×3 (06:54→22:29)
[2018-08-04 06:56] LABS: UREA NITROGEN, BLOOD 95 mg/dL (7-18)
[2018-08-04 08:00] VITALS: BP 132/53
[2018-08-04] MEDS: PANTOPRAZOLE 40 MG TABLET.DR PO SCH (08:15)
[2018-08-04] MEDS: glipiZIDE 10 MG TABLET PO SCH (08:15)
[2018-08-04] MEDS: HYDROCODONE/APAP 5/325MG 1 EACH TABLET PO PRN ×2 (08:16→19:15)
[2018-08-04] MEDS: APIXABAN 2.5 MG TABLET PO SCH ×2 (08:20→17:00)
[2018-08-04] MEDS ORDERED: LEVOFLOXACIN (500MG) 500 MG TABLET PO SCH (09:00)
[2018-08-04] MEDS: hydrALAZINE HCL 50 MG TABLET PO SCH ×3 (09:00→17:00)
[2018-08-04] MEDS: ISOSORBIDE DINITRATE (10MG) 10 MG TABLET PO SCH ×2 (09:51→17:28)
[2018-08-04] MEDS: CARVEDILOL 12.5 MG TABLET PO SCH ×2 (09:52→20:53)
[2018-08-04] MEDS: AMLODIPINE BESYLATE 10 MG TABLET PO SCH (09:52)
--- NOTE | 2018-08-04 14:06 | NUR ---
MS RN NOTES-- REMOVED LYNN CATH. PT TOLERATED WELL.
[2018-08-04 15:52] VITALS: BP 127/73
--- NOTE | 2018-08-04 19:35 | NUR ---
MS RN NOTES RECEIVED ON BED A/O X4,NO SOB,O2 IN USED ON AND OFF.SALINE LOCK LEFT HAND INTACT AND PATENT.AMBULATE WITH ASSIST.BED ON LOWEST POSITION AND LOCKED.CALL LIGHT IN REACH NEEDS ANTICIPATED.
--- NOTE | 2018-08-04 19:52 | NUR ---
MS RN NOTES WORRIED ABOUT HER BLOOD SUGAR.ACCU-CHECK DONE AND IT WAS 160.CLAIMED SHE FEELS OK NOW
[2018-08-04 20:00] VITALS: BP 104/45
--- NOTE | 2018-08-04 22:00 | NUR ---
MS RN NOTES ACCU-CHECK BLOOD SUGAR CHECK 223,COVERED WITH SLIDING SCALE 4 UNITS ORDERED,GIVEN SQ ON RIGHT DELTOID.SNACKS PROVIDED AT BEDSIDE.
--- NOTE | 2018-08-04 22:23 | NUR ---
MS RN NOTES C/O INSOMNIA,AMBIEN 5MG PO GIVEN ORDERED.
[2018-08-04] MEDS: ZOLPIDEM TARTRATE 5 MG TABLET PO PRN (22:33)
--- NOTE | 2018-08-05 06:00 | NUR ---
MS RN NOTES ACCU-CHECK BLOOD SUGAR CHECK 170MG/DL,WILL COVER WITH HUMULIN R BEFORE BREAKFAST.
[2018-08-05] MEDS: BLOOD SUGAR DIAGNOSTIC 1 EACH STRIP IN SCH ×2 (06:20→12:10)
[2018-08-05 06:42] LABS: CALCIUM, SERUM 9.3 mg/dL (8.5-10.1); CARBON DIOXIDE 32 mmol/L (21-32); CHLORIDE 96 mmol/L (98-107); CREATININE 3.7 mg/dL (0.6-1.3); GLUCOSE 190 mg/dL (74-106); PHOSPHORUS 6.1 mg/dL (2.5-4.9); POTASSIUM 3.7 mmol/L (3.5-5.1); SODIUM SERUM 137 mmol/L (136-145)
--- NOTE | 2018-08-05 06:47 | NUR ---
MS RN NOTES NO SIGNIFICANT CHANGE IN STATUS.BLOOD SUGAR UNDER CONTROLLED.POSSIBLE D/C TO DAY TO HOME.IN NO ACUTE DISTRESS.WILL ENDORSE TO DAY NURSE FOR DULCE.
[2018-08-05 06:49] LABS: UREA NITROGEN, BLOOD 104 mg/dL (7-18)
--- NOTE | 2018-08-05 07:54 | NUR ---
MS RN Opening Notes Patient asleep, resting in bed. Semi-Fowlers position. Alert and oriented x4, able to make needs known. No complaints of pain at this time. Respirations even and unlabored on room air, no acute distress noted. Peripheral IV to the left hand 24 gauge, intact, patent and saline locked. Updated patient on current plan of care and safety measures. Safety and fall precautions in place: bed in lowest and locked position, side rails up x2, bed alarm on, call light and personal possessions within reach. Will continue to monitor and intervene as needed.
[2018-08-05 08:00] VITALS: BP 119/53
[2018-08-05] MEDS: INSULIN REGULAR, HUMAN 100 UNIT/ML 3 ML VIAL SQ PRN ×2 (08:12→12:11)
[2018-08-05] MEDS: glipiZIDE 10 MG TABLET PO SCH (08:13)
[2018-08-05] MEDS: PANTOPRAZOLE 40 MG TABLET.DR PO SCH (08:13)
[2018-08-05] MEDS: hydrALAZINE HCL 50 MG TABLET PO SCH ×3 (08:23→17:00)
[2018-08-05] MEDS: APIXABAN 2.5 MG TABLET PO SCH ×2 (08:23→17:00)
[2018-08-05] MEDS: CARVEDILOL 12.5 MG TABLET PO SCH (08:23)
[2018-08-05] MEDS: ISOSORBIDE DINITRATE (10MG) 10 MG TABLET PO SCH ×2 (08:24→17:00)
[2018-08-05] MEDS: AMLODIPINE BESYLATE 10 MG TABLET PO SCH (08:24)
[2018-08-05] MEDS ORDERED: FUROSEMIDE 80 MG TABLET PO SCH (09:30)
[2018-08-05] MEDS ORDERED: FURO80TA3 PO (11:11)
[2018-08-05 13:00] VITALS: BP 154/54
[2018-08-05 15:59] VITALS: BP 121/65
[2018-08-05 16:00] VITALS: BP 121/65
[2018-08-05 17:00] VITALS: BP 121/65
[2018-08-05] MEDS: HYDROCODONE/APAP 5/325MG 1 EACH TABLET PO PRN (17:08)
--- NOTE | 2018-08-05 18:00 | NUR ---
MS general store manager Notes Patient currently alert and oriented x4, able to make needs known. No complaints of pain at this time. Respirations even and unlabored on room air, no acute distress noted. Peripheral IV to the left hand 24 gauge removed with catheter tip intact. No redness, swelling or bleeding of the site noted. Patient tolerating oral fluids and foods. Ambulates with steady gait, vital signs stable. Patient refused follow-up skin assessment photos, states she does not need additional photos of her sacrum. No open wounds. Patient discharged with all personal belongings including clothing and valuables as noted on belongings form, verified with signature. Discharge instructions and Exitcare provided to patient, including new prescription orders for change in Lasix dosage, given to patient and verbalized understanding and acknowledged via signature on discharge form. Copies placed in chart. ID band removed from patient. Accompanied to front lobby of hospital by wheelchair by CHEN Olivier. Patient left by private ride, daughter, in stable condition.
== END 2018-08-05 18:00 | disposition home health service (06) | DRG 280 ==
LOC: ER 10:24 → TELE 12:11 → MED 07-29 08:11
PROVIDERS: ADMIT Student in an Organized Health Care Education/Training Program; ATTEND Internal Medicine
DX: I13.0 Hypertensive heart and chronic kidney disease with heart failure and stage 1 through stage 4 chronic kidney disease, or unspecified chronic kidney disease (principal); J15.9 Unspecified bacterial pneumonia; I21.4 Non-ST elevation (NSTEMI) myocardial infarction; J96.01 Acute respiratory failure with hypoxia; I50.33 Acute on chronic diastolic (congestive) heart failure; N17.0 Acute kidney failure with tubular necrosis; E44.1 Mild protein-calorie malnutrition; D63.8 Anemia in other chronic diseases classified elsewhere; E78.5 Hyperlipidemia, unspecified; I25.5 Ischemic cardiomyopathy; I48.2 Chronic atrial fibrillation; N18.9 Chronic kidney disease, unspecified; Z87.442 Personal history of urinary calculi; Z79.02 Long term (current) use of antithrombotics/antiplatelets; Z87.891 Personal history of nicotine dependence; Z79.4 Long term (current) use of insulin; Z95.5 Presence of coronary angioplasty implant and graft; E11.22 Type 2 diabetes mellitus with diabetic chronic kidney disease; Z68.21 Body mass index [BMI] 21.0-21.9, adult; I27.20 Pulmonary hypertension, unspecified; E11.51 Type 2 diabetes mellitus with diabetic peripheral angiopathy without gangrene; L89.151 Pressure ulcer of sacral region, stage 1; E04.2 Nontoxic multinodular goiter; I25.10 Atherosclerotic heart disease of native coronary artery without angina pectoris
CPT/HCPCS: 36415; 36600; 71045-TC; 71250-TC; 78582; 80048-TC; 80053-TC; 80061-TC; 80076-TC; 82962-TC; 83735-TC; 83880; 84100-TC; 84439-TC; 84443-TC; 84484-TC; 85025-TC; 85730-TC; 93307-TC; 93970-TC; 94799-TC; A4216; A6403; A9540; A9567; G0378; J1815; J1940; J1956; J2405; J2765; J3490; J7030; J7050; J7060

== ENCOUNTER 2018-12-02 14:36 | Inpatient (IN) | payer MEDICARE, OTHER ==
[~2018-12-02] VITALS: Ht 149.9 cm; Wt 57.2 kg
[~2018-12-02 14:36] MED LIST changes: -ALPR0.255 PO; +APIX2.5T PO; +CHOL500052 PO; +CLOP75TA15 PO; -EVOL140S SQ; -FERR325T23 PO; +FURO40TA5 PO; +FURO80TA3 PO; +GLIP10TA11 PO; -PANT40TA2 PO; +PANT40TA4 PO
[2018-12-02 15:32] LABS: BASOPHILS % (AUTO) 0.8 % (0.0-2.0); EOSINOPHILS % (AUTO) 1.6 % (0.0-6.0); HEMATOCRIT 36 % (33-45); HEMOGLOBIN 11.7 g/dL (11.5-14.8); LYMPHOCYTES # (AUTO) 0.7 /CMM (0.8-4.8); LYMPHOCYTES % (AUTO) 10.5 % (20.0-44.0); MEAN CORPUSCULAR HGB CONC 33 g/dl (31.0-36.0); MEAN CORPUSCULAR VOLUME 96 fL (82-100); MONOCYTES # (AUTO) 0.5 /CMM (0.1-1.30); MONOCYTES % (AUTO) 8.3 % (2.0-12.0); NEUTROPHILS % (AUTO) 78.8 % (43.0-81.0); PLATELET COUNT (AUTO) 182 /CMM (150-450); RED BLOOD CELL COUNT(AUTO) 3.71 MIL/uL (4.0-5.2); WHITE BLOOD COUNT (AUTO) 6.4 K/uL (4.3-11.0)
[2018-12-02 15:37] LABS: CALCIUM, SERUM 7.8 mg/dL (8.5-10.1); CARBON DIOXIDE 21 mmol/L (21-32); CHLORIDE 105 mmol/L (98-107); CREATININE 5.1 mg/dL (0.6-1.3); GLUCOSE 248 mg/dL (74-106); POTASSIUM 3.3 mmol/L (3.5-5.1); SODIUM SERUM 140 mmol/L (136-145); UREA NITROGEN, BLOOD 73 mg/dL (7-18)
--- NOTE | 2018-12-02 15:48 | NUR ---
BIBSELF FOR LLE PAIN AND SWELLING x 3 DAYS. PATIENT A/OX3, BREATHING EVEN AND UNLABORED, NO SOB NOTED. ATTACHED TO THE MONITOR. NO DISTRESS NOTED.
--- NOTE | 2018-12-02 15:48 | NUR ---
CALLED [facility] DEMET[facility] NIELSON
--- NOTE | 2018-12-02 16:09 | NUR ---
CALLED [facility]
--- NOTE | 2018-12-02 16:45 | NUR ---
Report given to Perla CHAUDHRY.
[2018-12-02] MEDS ORDERED: ZOLPIDEM TARTRATE 5 MG TABLET PO PRN (17:30)
[2018-12-02] MEDS ORDERED: HYDROCODONE/APAP 5/325MG 1 EACH TABLET PO PRN (17:30)
[2018-12-02] MEDS ORDERED: MAG HYDROX/AL HYDROX/SIMETH 30 ML UDC PO PRN (17:30)
[2018-12-02] MEDS ORDERED: DEXTROSE 50%-WATER 50 ML DISP.SYRIN IV PRN (17:30)
[2018-12-02] MEDS ORDERED: ONDANSETRON HCL/PF 4 MG/2 ML VIAL IVP PRN (17:30)
[2018-12-02] MEDS ORDERED: Z GUARD REMEDY 2 OZ OINT TP PRN (17:30)
--- NOTE | 2018-12-02 17:38 | NUR ---
patient transferred to room 304-1, in no distress.
[2018-12-02 17:45] VITALS: BP 165/68
--- NOTE | 2018-12-02 17:45 | NUR ---
MS UNDER SHERIFF NOTE RECEIVED PT FROM ER VIA WHEELCHAIR DX OF LEFT LEG SWELLING. PT IS ALERT AND ORIENTED X4, DENIES CHEST PAIN, SOB, N/V, BREATHING IS EVEN AND UNLABORED ON ROOM AIR. NO ACUTE DISTRESS NOTED AT THIS TIME, VS OBTAINED PER PROTOCOL, BELONGINGS REVIEWED. RIGHT HAND #20G IV IS PATENT, CLEAN, DRY AND INTACT. WOUND DOCUMENTATION COMPLETED PER PROTOCOL. ADMITTING IS , ADMISSION ORDERS NOTED AND CARRIED OUT. UNIT ORIENTATION PROVIDED PER PROTOCOL INCLUDING USE OF CALL LIGHT SYSTEM, INFORMED PT TO NOT EXIT THE BED WITHOUT STAFF ASSISTANCE, PT VERBALIZED UNDERSTANDING. BED IS LOCKED AND IN LOWEST POSITION, SIDE RAILS UP X2, BED ALARM ON, CALL LIGHT AND POSSESSIONS WITHIN REACH.
--- NOTE | 2018-12-02 17:50 | NUR ---
MS RN NOTE , ADMITTING PHYSICIAN AT THE BEDSIDE FOR EVALUATION.
[2018-12-02] MEDS: BLOOD SUGAR DIAGNOSTIC 1 EACH STRIP VI SCH ×2 (18:00→22:00)
--- NOTE | 2018-12-02 18:00 | NUR ---
MS RN NOTE TECH AT THE BEDSIDE FOR RENAL ULTRASOUND.
[2018-12-02 18:20] VITALS: BP 161/77
--- NOTE | 2018-12-02 18:47 | NUR ---
MS RN CLOSING NOTES PATIENT IN BED ALERT AND AWAKE, ORIENTED X4. HOB ELEVATED. LEFT HAND SL G#20 INTACT AND PATENT. PATIENT AMBULATORY, CONTINENT OF BOWEL AND BLADDER. NO SOB. ON RA 96% O2 SAT. DENIES ANY C/O PAIN NOR DISCOMFORT AT THIS TIME. LLE WITH 3+ PITTING EDEMA. ORIENTED PATIENT TO ROOM, CALL LIGHT. IN NO APPRENT DISTRESS AT THIS TIME. ATE DINNER WITH [facility]IR PO INTAKE. BED IN LOWEST POSITION. BED SIDERAILS UPX2.
[2018-12-02] MEDS: IV NS 0.9% 1,000 ML IV PRN (18:55)
--- NOTE | 2018-12-02 19:20 | NUR ---
MS/RN NOTES RECEIVED PT. LYING IN BED. PT. IS AWAKE, ALERT AND ORIENTED X4. BREATHING EVEN AND UNLABORED ON ROOM AIR. NO SOB, RESPIRATORY DISTRESS OR COMPLAINTS OF PAIN NOTED AT THIS TIME. PT. WITH LEFT HAND 20 GAUGE PERIPHERAL IV PRESENT, PATENT AND INTACT ADMINISTERING TO PT. NS @ 50ML/HR. BED LOCKED AND IN LOWEST POSITION, SIDE RAILS UP X2, CALL LIGHT WITHIN REACH, WILL CONTINUE TO MONITOR.
[2018-12-02 20:00] VITALS: BP 124/47
--- NOTE | 2018-12-03 06:50 | NUR ---
MS/RN NOTES PT. IS LYING IN BED AWAKE, ALERT AND ORIENTED X4. BREATHING EVEN AND UNLABORED ON ROOM AIR. NO SOB, RESPIRATORY DISTRESS OR COMPLAINTS OF PAIN NOTED AT THIS TIME. PT. WITH LEFT HAND 20 GAUGE PERIPHERAL IV PRESENT, PATENT AND INTACT ADMINISTERING TO PT. NS @ 50ML/HR. ALL PT. NEEDS MET. BED LOCKED AND IN LOWEST POSITION, SIDE RAILS UP X2, CALL LIGHT WITHIN REACH, WILL ENDORSE TO DAYSHIFT NURSE FOR CONTINUITY OF CARE.
[2018-12-03] MEDS: BLOOD SUGAR DIAGNOSTIC 1 EACH STRIP VI SCH ×4 (06:56→22:36)
--- NOTE | 2018-12-03 07:30 | NUR ---
m/s blood donor unit assistant: initial assessment received pt in bed awake, a/ox4. no c/o sob or any discomfort. continue on iv fluids, infusing well. instructed to call for assistance. will continue to monitor.
[2018-12-03 08:00] VITALS: BP 142/59
[2018-12-03] MEDS: PANTOPRAZOLE 40 MG TABLET.DR PO SCH (08:38)
[2018-12-03] MEDS: ISOSORBIDE DINITRATE (10MG) 10 MG TABLET PO SCH ×2 (08:39→16:31)
[2018-12-03] MEDS: hydrALAZINE HCL 50 MG TABLET PO SCH ×2 (08:39→16:31)
[2018-12-03] MEDS: AMLODIPINE BESYLATE 10 MG TABLET PO SCH (08:39)
[2018-12-03] MEDS ORDERED: FUROSEMIDE 40 MG TABLET PO SCH (09:00)
--- NOTE | 2018-12-03 09:00 | NUR ---
m/s protohistorian: md visit seen and examined by dr. rodriguez at this time and updated plan of care. all questions and concerns answered by md, pt verbalized understanding.
--- NOTE | 2018-12-03 09:30 | NUR ---
m/s implementation analyst: cardio consult seen by dr. chang with new orders. orders acknowledged.
--- NOTE | 2018-12-03 10:00 | NUR ---
m/s bus company manager: notes venous duplex to lower extremities result: No sonographic evidence for deep venous thrombosis. pt made aware.
[2018-12-03 10:07] LABS: CALCIUM, SERUM 7.9 mg/dL (8.5-10.1); CARBON DIOXIDE 25 mmol/L (21-32); CHLORIDE 106 mmol/L (98-107); CREATININE 4.6 mg/dL (0.6-1.3); GLUCOSE 211 mg/dL (74-106); MAGNESIUM 2.1 mg/dL (1.8-2.4); PHOSPHORUS 5.7 mg/dL (2.5-4.9); POTASSIUM 3.3 mmol/L (3.5-5.1); SODIUM SERUM 141 mmol/L (136-145); UREA NITROGEN, BLOOD 60 mg/dL (7-18)
[2018-12-03 10:10] LABS: CHOLESTEROL 366 mg/dL (<200); CREATINE KINASE, TOTAL 50 U/L (26-192); HDL CHOLESTEROL 40 mg/dL (40-60); LDL 268 mg/dL (0-99); TRIGLYCERIDES 296 mg/dL (30-150)
[2018-12-03 10:19] LABS: BASOPHILS % (AUTO) 0.7 % (0.0-2.0); EOSINOPHILS % (AUTO) 2.4 % (0.0-6.0); HEMATOCRIT 37 % (33-45); HEMOGLOBIN 11.9 g/dL (11.5-14.8); LYMPHOCYTES # (AUTO) 0.7 /CMM (0.8-4.8); LYMPHOCYTES % (AUTO) 11.9 % (20.0-44.0); MEAN CORPUSCULAR HGB CONC 32 g/dl (31.0-36.0); MEAN CORPUSCULAR VOLUME 96 fL (82-100); MONOCYTES # (AUTO) 0.4 /CMM (0.1-1.30); NEUTROPHILS # (AUTO) 4.5 /CMM (1.8-8.9); PLATELET COUNT (AUTO) 170 /CMM (150-450); RED BLOOD CELL COUNT(AUTO) 3.83 MIL/uL (4.0-5.2); WHITE BLOOD COUNT (AUTO) 5.8 K/uL (4.3-11.0)
[2018-12-03] MEDS: INSULIN REGULAR, HUMAN 100 UNIT/ML 3 ML VIAL SQ PRN (12:03)
[2018-12-03] MEDS ORDERED: ALBUTEROL HALF STRENGTH 1.25 MG/3 ML VIAL.NEB NEB PRN (14:00)
[2018-12-03] MEDS ORDERED: IPRATROPIUM NEB FS 0.5 MG/2.5 ML AMPUL.NEB NEB PRN (14:00)
--- NOTE | 2018-12-03 14:15 | NUR ---
m/s composition professor: pulmo consult seen by dr. villalobos with new orders. orders acknowledged.
[2018-12-03] MEDS: IV NS 0.9% 1,000 ML IV PRN (15:04)
[2018-12-03] MEDS: ACETAMINOPHEN 325 MG TABLET PO PRN (15:19)
--- NOTE | 2018-12-03 15:30 | NUR ---
m/s owner operator tanker truck driver: notes dr. antunez notified re: abnormal electrolytes and requesting for xanax and benadryl, stated, "i will put the order in."
[2018-12-03] MEDS: ALPRAZOLAM 0.25 MG TABLET PO PRN (15:54)
[2018-12-03] MEDS: POTASSIUM CL. PREMIX PERIPHER. 50 ML IV SCH ×2 (15:56→17:20)
[2018-12-03 16:00] VITALS: BP 138/58
[2018-12-03] MEDS ORDERED: diphenhydrAMINE HCL ELIX 25 MG/10 ML UDC PO PRN (16:00)
--- NOTE | 2018-12-03 18:10 | NUR ---
m/s loan reviewer: notes gus (case management) at bedside at this time. iv potassium (2nd bag) infusing well. no a/r noted. needs attended. instructed to call for assistance. call light within reach. will continue to monitor.
--- NOTE | 2018-12-03 19:15 | NUR ---
m/s ophthalmic medical assistant: notes report given to merissa (elena) for continuity of care.
--- NOTE | 2018-12-03 19:25 | NUR ---
MSRN RECEIVED ASLEEP, APPEARS COMFORTABLE. PRESENT IVF INFUSING WELL, LAST BAG OF POTASSIUM TO CONSUME. TO CONTINUE.
[2018-12-03 20:17] VITALS: BP 128/58
--- NOTE | 2018-12-03 20:32 | NUR ---
Met with patient , she is alert and pleasant. Patient resides locally with her daughter on the first floor apartment.She is ambulatory and min assist with adl's. Her daughter is her primary source of support and 46hrs/month [employer] caregiver. States that her oxygen was taken back by [facility] as it was not approved by Medicare. She was on service with [employer] [phone] in the past.She plan to return home once discharge. Addendum: 12/03/18 at 2032 by ALYSON LEGER RN Amended: Links added.
--- NOTE | 2018-12-03 21:13 | NUR ---
MSRN SLEEPING STILL. K REPLACEMENT CONSUMED. PRESENT IVF NS AT 50 CC/HR, CONTINUED.
--- NOTE | 2018-12-03 22:10 | NUR ---
MSRN BS WAS 144, STATED JUST ATE HALF OF SANDWICH FEW MINUTES AGO. INSULIN COVERAGE NOT GIVEN FOR NOW, PER PATIENT. WANTED TO HAVE ANOTHER DOSE OF XANAX, STATED HAD REACTION FROM AMBIEN LAST NIGHT MAKING HER VERY UNCOMFORTABLE, THOUGH NOT ALLERGY REACTION. STATES ONLY XANAX HELPS HER TO BE MORE RELAX AND MAKE HER SLEEP. WILL CALL .
--- NOTE | 2018-12-03 22:30 | NUR ---
MSRN PLACED CALL TO DR. ASH, REGARDING PATIENTS' CONCERNS REGARDING MEDICATION.
--- NOTE | 2018-12-03 22:35 | NUR ---
MSISIDORO RECEIVED CALL FROM DR. ASH, ORDERS RECEIVED. CARRIED OUT.
[2018-12-03] MEDS ORDERED: ALPRAZOLAM 0.25 MG TABLET PO ONE (23:00)
--- NOTE | 2018-12-03 23:00 | NUR ---
MSRN XANAX 0.5MG PO ADMINISTERED.
[2018-12-04] MEDS: IV NS 0.9% 1,000 ML IV PRN (03:46)
--- NOTE | 2018-12-04 03:56 | NUR ---
MSRN AWAKENED, VERBALIZES STOMACH DISCOMFORTS, STATED HAD DIARRHEA 4X. EMPTIED BSC, NO DIARRHEA SEEN ONLY TWO SMALL SOFT FORMED STOOLS. NO VOMITTING, DENIES NAUSEA. MAALOX GIVEN FOR NOW. BEDREST INSTRUCTED, REMINDED TO CALL STAFF FOR ANY ASSISTANCE TO BSC, HFR. SAFETY PRECAUTIONS EMPHASIZED. CLOSELY WATCHED.
--- NOTE | 2018-12-04 06:56 | NUR ---
MSRN RELIEF FROM ABD DISCOMFORTS FROM MAALOX. SLEEPING OF THIS TIME, DEFERRED BLOOD SUGAR CHECK. WILL DO ONCE AWAKE.
[2018-12-04 08:00] VITALS: BP 128/72
[2018-12-04] MEDS: BLOOD SUGAR DIAGNOSTIC 1 EACH STRIP VI SCH ×4 (08:16→21:36)
[2018-12-04] MEDS: INSULIN REGULAR, HUMAN 100 UNIT/ML 3 ML VIAL SQ PRN ×2 (08:36→18:11)
[2018-12-04] MEDS: ISOSORBIDE DINITRATE (10MG) 10 MG TABLET PO SCH ×2 (08:38→18:06)
[2018-12-04] MEDS: PANTOPRAZOLE 40 MG TABLET.DR PO SCH (08:38)
--- NOTE | 2018-12-04 09:00 | NUR ---
pt. verbalized upset with dtr.states she has difficulty talking with dtr.
[2018-12-04] MEDS: AMLODIPINE BESYLATE 10 MG TABLET PO SCH (11:31)
[2018-12-04] MEDS: *INSULIN REGULAR(HUMULIN R)HUM 100 UNIT/ML VIAL SQ PRN ×2 (12:34→21:40)
--- NOTE | 2018-12-04 13:00 | NUR ---
ua sent on pt.
[2018-12-04 13:03] LABS: APPEARANCE,URINE CLOUDY (CLEAR); BILIRUBIN,URINE NEGATIVE (NEGATIVE); BLOOD, URINE 1+ Ery/uL (NEGATIVE); COLOR,URINE YELLOW (YELLOW); KETONES,URINE NEGATIVE (NEGATIVE); LEUKOCYTE ESTERASE ,URINE NEGATIVE (NEGATIVE); NITRITE, URINE NEGATIVE (NEGATIVE); PH,URINE 6.5 (5.0-8.0); PROTEIN,URINE 3+ mg/dl (NEGATIVE); UGLUCOSE 1+ mg/dL (NEGATIVE); UROBILINOGEN,URINE 0.2 EU/dL (0.2)
[2018-12-04 13:12] LABS: BACTERIA,URINE None seen /HPF (None Seen); WBC,URINE NONE SEEN /HPF (0-3)
[2018-12-04 13:13] LABS: SQUAMOUS EPITHELIAL CELL,UR Few /HPF (None Seen)
[2018-12-04 13:27] LABS: EOSINOPHIL,URINE None Seen
[2018-12-04 13:52] LABS: CREATININE, URINE 58.6 MG/DL (30.0-125.0)
--- NOTE | 2018-12-04 14:00 | NUR ---
thigh high teds ordered on pt. and applied.
[2018-12-04 14:13] LABS: PTH, INTACT 529 pg/mL (15-65)
[2018-12-04] MEDS: hydrALAZINE HCL 50 MG TABLET PO SCH ×2 (14:55→17:00)
--- NOTE | 2018-12-04 15:15 | NUR ---
call out to dr. chance regarding new finding of mrsa in nares,bactroban ordered.
[2018-12-04 16:00] VITALS: BP 127/52
[2018-12-04] MEDS ORDERED: IV NS 0.9% 1,000 ML BAG IV PRN (17:30)
--- NOTE | 2018-12-04 17:30 | NUR ---
pt. requesting teds be removed,too elena zelaya removed.dr. maya here and requested he look at pt. 2nd time today.in rm.abg ordered,chest x-ray ordered.hob elevated continually instructed pt. to keep o2 on and not get oob by self.agreeable.pox running around 89% to 90%.pt. c/o sob.
[2018-12-04 17:37] LABS: ABG BASE EXCESS -5.2 mmol/L; ABG OXYGEN SATURATION 96.6 % (92.0-98.5); ABG PCO2 27.5 mmHg (35.0-45.0); ABG PH 7.429 (7.350-7.450); ABG PO2 93.9 mmHg (75.0-100.0); AaDO2 130.9 mmHg; COHb 0.1 % (0.5-1.5); MetHb 0.1 % (0.0-1.5); O2Hb 96.4 % (94.0-97.0); SITE, ABG Left Radial
[2018-12-04] MEDS ORDERED: IV NS 0.9% 1,000 ML IV PRN (18:00)
--- NOTE | 2018-12-04 18:00 | NUR ---
dr. maya saw abg report and chest x-ray and states pt. with fluid overload.call out to dr. chang.orders received to give lasix x2 and stop iv.pt. put on cont. p ox and pt.hyperventillating from time to time.at this time pt. requests to sit on edge of bed.02 on continually.
[2018-12-04] MEDS: MUPIROCIN OINT 2% 22 GM TUBE SCH ×2 (18:06→21:37)
[2018-12-04] MEDS ORDERED: FUROSEMIDE 20 MG/2 ML VIAL IV ONE (19:00)
--- NOTE | 2018-12-04 19:00 | NUR ---
all info endorsed to jean-claude.elena wang.he will give ist dose of lasix.
--- NOTE | 2018-12-04 19:05 | NUR ---
MS RN NOTES PT RECEIVED IN BED AWAKE AND ABLE TO MAKE NEEDS KNOWN. PT A/O X3. RESPIRATIONS EVEN AND UNLABORED WITH NO S/S OF ACUTE DISTRESS OR SOB NOTED. NO COMPLAINTS OF PAIN AT THIS TIME. PT REFUSED CONTINUOUS PULSE OX. EXPLAINED THE RISKS AND BENEFITS AND PT CONTINUES TO REFUSE. PT TO HAVE MANI HOSE AND PT REFUSED. PT STATES THEY ARE TOO TIGHT. SAFETY MEASURES IN PLACE WITH BED IN LOWEST LOCKED POSITION WITH SIDE RAILS UP X2. CALL LIGHT WITHIN REACH. WILL CONTINUE TO MONITOR.
[2018-12-04 20:00] VITALS: BP 145/61
[2018-12-04] MEDS: ALPRAZOLAM 0.25 MG TABLET PO PRN ×2 (21:49→22:36)
[2018-12-04] MEDS ORDERED: FUROSEMIDE 40 MG/4 ML VIAL IV ONE (23:00)
[2018-12-05] VITALS (20 sets, daily range): BP systolic 92–160; BP diastolic 36–61
[2018-12-05] MEDS: BLOOD SUGAR DIAGNOSTIC 1 EACH STRIP VI SCH ×4 (06:34→21:32)
[2018-12-05] MEDS: INSULIN REGULAR, HUMAN 100 UNIT/ML 3 ML VIAL SQ PRN (06:36)
--- NOTE | 2018-12-05 06:42 | NUR ---
MS RN NOTES PT IN BED AWAKE AND ABLE TO MAKE NEEDS KNOWN. PT A/O X3. RESPIRATIONS EVEN AND UNLABORED WITH NO S/S OF ACUTE DISTRESS OR SOB NOTED THROUGHOUT SHIFT. NO COMPLAINTS OF PAIN AT THIS TIME. PT CONTINUES TO REFUSE CONTINUOUS PULSE OX. PT KEPT CLEAN, DRY, AND COMFORTABLE. SAFETY MEASURES IN PLACE WITH BED IN LOWEST LOCKED POSITION WITH SIDE RAILS UP X2. CALL LIGHT WITHIN REACH. WILL ENDORSE TO ONCOMING NURSE FOR DULCE.
[2018-12-05 06:44] LABS: BASOPHILS % (AUTO) 0.5 % (0.0-2.0); EOSINOPHILS % (AUTO) 1.6 % (0.0-6.0); HEMATOCRIT 39 % (33-45); HEMOGLOBIN 12.7 g/dL (11.5-14.8); LYMPHOCYTES # (AUTO) 0.6 /CMM (0.8-4.8); MEAN CORPUSCULAR HGB CONC 33 g/dl (31.0-36.0); MEAN CORPUSCULAR VOLUME 98 fL (82-100); MONOCYTES # (AUTO) 0.6 /CMM (0.1-1.30); MONOCYTES % (AUTO) 7.9 % (2.0-12.0); NEUTROPHILS # (AUTO) 6.5 /CMM (1.8-8.9); PLATELET COUNT (AUTO) 177 /CMM (150-450); RED BLOOD CELL COUNT(AUTO) 3.95 MIL/uL (4.0-5.2); WHITE BLOOD COUNT (AUTO) 7.9 K/uL (4.3-11.0)
[2018-12-05 07:12] LABS: ALANINE AMINOTRANSFERASE 14 U/L (12-78); ALKALINE PHOSPHATASE 117 U/L (46-116); ASPARTATE AMINOTRANSFERASE 11 U/L (15-37); BILIRUBIN,TOTAL 0.2 mg/dL (0.2-1.0); CALCIUM, SERUM 7.7 mg/dL (8.5-10.1); CARBON DIOXIDE 22 mmol/L (21-32); CHLORIDE 104 mmol/L (98-107); CREATININE 4.2 mg/dL (0.6-1.3); GLUCOSE 130 mg/dL (74-106); MAGNESIUM 2.1 mg/dL (1.8-2.4); POTASSIUM 3.5 mmol/L (3.5-5.1); SODIUM SERUM 139 mmol/L (136-145); TOTAL PROTEIN, SERUM 6.4 g/dL (6.4-8.2); UREA NITROGEN, BLOOD 52 mg/dL (7-18)
--- NOTE | 2018-12-05 07:30 | NUR ---
MS RN OPENING NOTES RECEIVED PT SITTING UPRIGHT IN BED. PT IS A/O X4, AFEBRILE. RESPIRATIONS ARE EVEN AND UNLABORED, NOT IN ANY ACUTE DISTRESS NOTED. PT C/O HEADACHE 03/03 AND STATES "TYLENOL HELPS." DENIES ANY SOB, N/V. IV SITE TO LEFT HAND INTACT, NO INFILTRATION NOTED. DRESSING KEPT CLEAN AND DRY. PT REFUSES CONTINUOUS PULSE OX AT THIS TIME, SATURATING AT 93% WITH 3L/MIN VIA NC. SAFETY MEASURES ARE IN PLACE. WILL CLOSELY MONITOR. INSTRUCTED PT TO USE CALL LIGHT WHEN ASSISTANCE IS NEEDED, CALL LIGHT IS LEFT WITHIN REACH. WILL MONITOR THROUGHOUT SHIFT FOR CONTINUITY OF CARE.
[2018-12-05] MEDS: PANTOPRAZOLE 40 MG TABLET.DR PO SCH (07:42)
[2018-12-05] MEDS: ACETAMINOPHEN 325 MG TABLET PO PRN ×3 (07:43→21:12)
--- NOTE | 2018-12-05 07:43 | NUR ---
MS RN NOTES-- ADMINISTERED TYLENOL ORDERED FOR HEADACHE 03/03. WILL NOTE EFFECTIVENESS.
--- NOTE | 2018-12-05 08:01 | NUR ---
MS CHAUDHRY NOTES-- CONNECTED CONT PULSE OX, CURRENTLY SATURATING AT 92% AT 3L/MIN VIA NC.
--- NOTE | 2018-12-05 08:30 | NUR ---
MS RN NOTES-- PT DESATURATES WHEN ASLEEP, 87% @3L/MIN VIA NC. UPON WAKING UP, PT SATURATES AT 92% @3L/MIN VIA NC.
[2018-12-05] MEDS: hydrALAZINE HCL 50 MG TABLET PO SCH ×2 (08:49→17:00)
[2018-12-05] MEDS: AMLODIPINE BESYLATE 10 MG TABLET PO SCH (08:49)
[2018-12-05] MEDS: ISOSORBIDE DINITRATE (10MG) 10 MG TABLET PO SCH ×2 (08:50→17:00)
[2018-12-05] MEDS: MUPIROCIN OINT 2% 22 GM TUBE SCH ×2 (08:59→21:32)
--- NOTE | 2018-12-05 09:30 | NUR ---
MS RN NOTES-- PT WAS SEEN AND EXAMINED BY DR. RASHMI Maurice/ ORDERS TO TRANSFER TO ICU.
--- NOTE | 2018-12-05 09:40 | NUR ---
MS CURATOR OF COLLECTIONS NOTE-- PT TRANSFERRED TO ICU RM 262 VIA GURNEY. PT IS A/O X4, AFEBRILE. PT SATURATING BELOW 88% ON 5L/MIN VIA SIMPLE MASK. DENIES ANY CHEST PAIN, BUT C/O SOB. DENIES ANY N/V. IV SITE TO LEFT HAND INTACT, NO INFILTRATION NOTED. DRESSING KEPT CLEAN AND DRY. SKIN IS INTACT. ALL BELONGINGS SENT WITH PT. GAVE BEDSIDE ENDORSEMENT TO ISIDORO BENOIT.
[2018-12-05] MEDS: METOLAZONE 2.5 MG TABLET PO SCH (09:41)
[2018-12-05] MEDS: FUROSEMIDE 100 MG/10 ML VIAL IV SCH ×3 (09:41→17:19)
--- NOTE | 2018-12-05 09:45 | NUR ---
SALES REPRESENTATIVE ELECTRIC SERVICE INITIAL NOTES PT RECEIVED FROM [facility] DUE TO INCREASING SOB AND DESATURATION. PT ON 5L VIA NC AND SATING AT 92%. VSS. PT A/O X3. SHE DENIES ANY PAIN AT THIS TIME. PERIPHERAL IV TO LEFT HAND NOTED TO BE PATENT AND INTACT. NO REDNESS OR SIGNS OF INFILTRATION NOTED. ORDERS TO DIURESIS FROM PAINTER HAND NOTED. PT'S BELONGINGS VERIFIED. SHE WAS ORIENTED TO ROOM AND USE OF CALL LIGHT. BED IN LOW LOCKED POSITION, SIDE RAILS UP X2, CONTACT ISOLATION PRECAUTIONS INITIATED. WILL CONTINUE TO MONITOR
[2018-12-05 11:06] LABS: ABG BASE EXCESS -5.1 mmol/L; ABG OXYGEN SATURATION 77.7 % (92.0-98.5); ABG PH 7.275 (7.350-7.450); ABG PO2 43.9 mmHg (75.0-100.0); AaDO2 186.1 mmHg; COHb 1.1 % (0.5-1.5); MetHb 0.6 % (0.0-1.5); O2Hb 76.4 % (94.0-97.0); SITE, ABG Left Radial; VENT MODE, BG 5LPM SIMPLE MASK
--- NOTE | 2018-12-05 13:42 | NUR ---
PCA ASSISTED LIVING NOTES: O2 DELIVERY PT REFUSING BIPAP. MD GRAVES NOTIFIED. TELEPHONE ORDER OBTAINED FOR VENTURI MASK SET TO 60% FIO2. RT MADE AWARE
[2018-12-05] MEDS: methylPREDNISolone SOD SUCC 40 MG/ML VIAL IV SCH ×2 (17:19→22:28)
[2018-12-05 17:50] LABS: ABG BASE EXCESS -4.7 mmol/L; ABG OXYGEN SATURATION 92.3 % (92.0-98.5); ABG PCO2 43.3 mmHg (35.0-45.0); ABG PH 7.311 (7.350-7.450); ABG PO2 70.1 mmHg (75.0-100.0); AaDO2 310.1 mmHg; COHb 0.4 % (0.5-1.5); MetHb 0.4 % (0.0-1.5); O2Hb 91.6 % (94.0-97.0); PEEP,BG 5 cm H2O; SITE, ABG Left Radial; VENT MODE, BG BIPAP PS10
--- NOTE | 2018-12-05 19:24 | NUR ---
ASSISTANT TO THE PRESIDENT CLOSING NOTES PT REMAINS STABLE ON BIPAP. ALL NEEDS ANTICIPATED FOR AND MET DURING SHIFT. DUE MEDS GIVEN ACCORDINGLY. PRN CARE RENDERED PT WOULD PERMIT. VSS AT THIS TIME. INVASIVE LINES REMAIN C/D/I. SAFETY MEASURES AND ISOLATION PRECAUTIONS REMAIN IN PLACE. ENDORSED TO NIGHTSHIFT RN FOR DULCE
[2018-12-05] MEDS: ALPRAZOLAM 0.25 MG TABLET PO PRN (21:12)
[2018-12-05] MEDS: *INSULIN REGULAR(HUMULIN R)HUM 100 UNIT/ML VIAL SQ PRN (21:31)
[2018-12-06] VITALS (16 sets, daily range): BP systolic 113–178; BP diastolic 37–78
[2018-12-06 05:03] LABS: BASOPHILS % (AUTO) 0.2 % (0.0-2.0); EOSINOPHILS % (AUTO) 0.1 % (0.0-6.0); HEMATOCRIT 36 % (33-45); HEMOGLOBIN 11.9 g/dL (11.5-14.8); LYMPHOCYTES # (AUTO) 0.4 /CMM (0.8-4.8); LYMPHOCYTES % (AUTO) 9.4 % (20.0-44.0); MEAN CORPUSCULAR HGB CONC 34 g/dl (31.0-36.0); MEAN CORPUSCULAR VOLUME 97 fL (82-100); MONOCYTES % (AUTO) 0.7 % (2.0-12.0); NEUTROPHILS # (AUTO) 3.6 /CMM (1.8-8.9); NEUTROPHILS % (AUTO) 89.6 % (43.0-81.0); PLATELET COUNT (AUTO) 162 /CMM (150-450); RED BLOOD CELL COUNT(AUTO) 3.67 MIL/uL (4.0-5.2)
[2018-12-06 05:21] LABS: ALANINE AMINOTRANSFERASE 13 U/L (12-78); ALBUMIN 1.9 g/dL (3.4-5.0); ALKALINE PHOSPHATASE 118 U/L (46-116); ASPARTATE AMINOTRANSFERASE 9 U/L (15-37); BILIRUBIN,TOTAL 0.2 mg/dL (0.2-1.0); CALCIUM, SERUM 8.2 mg/dL (8.5-10.1); CARBON DIOXIDE 24 mmol/L (21-32); CHLORIDE 103 mmol/L (98-107); CREATININE 4.8 mg/dL (0.6-1.3); GLUCOSE 231 mg/dL (74-106); MAGNESIUM 2.2 mg/dL (1.8-2.4); PHOSPHORUS 7.4 mg/dL (2.5-4.9); POTASSIUM 4.3 mmol/L (3.5-5.1); SODIUM SERUM 139 mmol/L (136-145); TOTAL PROTEIN, SERUM 6.4 g/dL (6.4-8.2); UREA NITROGEN, BLOOD 61 mg/dL (7-18)
[2018-12-06] MEDS: methylPREDNISolone SOD SUCC 40 MG/ML VIAL IV SCH ×3 (06:10→22:42)
--- NOTE | 2018-12-06 06:19 | NUR ---
RN NOTES PATIENT IN BED, NO DISTRESS NOTED. BREATHING EVEN AND UNLABORED. COMPLAINED OF BACK AND HEAD PAIN AND ANXIETY, XANAX 0.5MG AND TYLENOL GIVEN, WITH HELP AND RELIEF. ABLE TO SLEEP FOR ABOUT 6 HOURS. PATIENT SAID SHE HAVING A HARD TIME WITH BPAP. NO SIGNIFICANT CHANGE OF CONDITION. VITAL SIGNS REMAINS WNL. KEPT CLEAN AND DRY. WILL ENDORSE TO NEXT SHIFT FOR CONTINUITY OF CARE.
--- NOTE | 2018-12-06 06:26 | NUR ---
RN NOTES IN BED, SLEEPING VERY LIGHTLY. NOTED RESTLESSNESS AND RAPID RESPIRATION. ATIVAN ADMINISTERED, WITH HELP. COMPLAINED OF PAIN, MORPHINE GIVEN WITH RELIEF. ALERT AND ORIENTED, DROWSY BUT COOPERATIVE. DIASTOLIC BLOOD PRESSURE WAS HIGH 100'S MOSTLY DURING THE NIGHT AND RESPIRATIONS AT 50'S. REMAINS AFEBRILE WITH SKIN WARM AND DRY TO TOUCH. O2 SAT AT 96-100%, O2 AT 3 LPM TOLERATING WELL. KEPT CLEAN AND DRY. WILL ENDORSE TO AM SHIFT FOR CONTINUITY OF CARE.
[2018-12-06] MEDS: BLOOD SUGAR DIAGNOSTIC 1 EACH STRIP VI SCH ×4 (07:40→21:47)
[2018-12-06] MEDS: INSULIN REGULAR, HUMAN 100 UNIT/ML 3 ML VIAL SQ PRN ×2 (07:43→17:37)
[2018-12-06] MEDS: MUPIROCIN OINT 2% 22 GM TUBE SCH ×2 (07:48→21:47)
[2018-12-06] MEDS: hydrALAZINE HCL 50 MG TABLET PO SCH ×2 (08:01→17:34)
[2018-12-06] MEDS: PANTOPRAZOLE 40 MG TABLET.DR PO SCH (08:01)
[2018-12-06] MEDS: METOLAZONE 2.5 MG TABLET PO SCH (08:02)
[2018-12-06] MEDS: AMLODIPINE BESYLATE 10 MG TABLET PO SCH (08:02)
[2018-12-06] MEDS: ISOSORBIDE DINITRATE (10MG) 10 MG TABLET PO SCH ×2 (08:03→17:35)
[2018-12-06 08:09] LABS: *SPE A/G RATIO 0.8 (0.7-1.7); *SPE ALBUMIN 2.2 g/dL (2.9-4.4); *SPE ALPHA-1-GLOBULIN 0.3 g/dL (0.0-0.4); *SPE ALPHA-2-GLOBULIN 1.1 g/dL (0.4-1.0); *SPE BETA GLOBULIN 0.9 g/dL (0.7-1.3); *SPE GLOBULIN, TOTAL 2.7 g/dL (2.2-3.9); *SPE M-SPIKE Not Observed g/dL (Not Observed); *SPEGAMMA GLOBULIN 0.4 g/dL (0.4-1.8)
[2018-12-06] MEDS: FUROSEMIDE 100 MG/10 ML VIAL IV SCH ×3 (11:29→17:47)
[2018-12-06] MEDS: *INSULIN REGULAR(HUMULIN R)HUM 100 UNIT/ML VIAL SQ PRN ×2 (11:45→21:49)
--- NOTE | 2018-12-06 13:30 | NUR ---
CENTRAL CONTROL ROOM OPERATOR NOTES RECEIVED PATIENT FROM ICU, ALERT AND ORIENTED X4. ON O2 2L/MIN VIA NC. NO RESPIRATORY DISTRESS AT THIS TIME. VERBALLY RESPONSIVE. DENIES ANY C/O PAIN NOR DISCOMFORT AT THIS TIME. LEFT HAND G#20 INTACT AND PATENT. BLOOD GLUCOSE 212 MG/DL. ON TELE MONITORING SR : 92. NO S/S OF COMPLICATIONS OBSERVED. ORIENTED TO ROOM. BED IN LOWEST POSITION. CALL LIGHT WITHIN REACH. WILL CONTINUE TO MONITOR PATIENT ACCORDINGLY.
--- NOTE | 2018-12-06 14:00 | NUR ---
pt xfrred to 3rd floor room 317 in zero distress//mw
--- NOTE | 2018-12-06 18:42 | NUR ---
BEAMSTER CLOSING NOTES ALERT AND ORIENTED X4. ON O2 3L/MIN VIA NC. NO SOB. VERBALLY RESPONSIVE. DENIES ANY C/O PAIN NOR DISCOMFORT AT THIS TIME. LEFT HAND G#20 INTACT AND PATENT. ON TELE MONITORING SR:92. LLE +1 SWELLING STILL NOTED, ELEVATED WITH PILLOW. CALL LIGHT WITHIN REACH. BED IN LOWEST POSITION. ABLE TO VERBALIZE NEEDS.
--- NOTE | 2018-12-06 19:20 | NUR ---
RN OPEN NOTES RECEIVED PATIENT AWAKE SITTING IN BED. A/OX4. NO SIGNS OF DISTRESS OR DISCOMFORT. BREATHING EVEN AND UNLABORED. ON 3LPM O2 VIA NC. ON TELE MONITORING WITH SR 93 NOTED. IV ACCESS IN L HAND, PATENT AND INTACT, NO SIGNS OF REDNESS OR INFILTRATION. BED IN LOW LOCKED POSITION WITH SIDE RAILS X2. CALL LIGHT WITHIN REACH. PT ADVISED TO USE CALL LIGHT FOR ASSISTANCE. WILL CONTINUE TO MONITOR.
[2018-12-06] MEDS: ALPRAZOLAM 0.25 MG TABLET PO PRN (21:50)
--- NOTE | 2018-12-06 21:50 | NUR ---
RN NOTES ADMINISTERED XANAX .50MG ORDERED FOR ANXIETY AT PATIENT REQUEST. VSS. WILL CONTINUE TO MONITOR.
[2018-12-07] VITALS: BP 131/58
[2018-12-07 04:00] VITALS: BP 134/59
[2018-12-07] MEDS: methylPREDNISolone SOD SUCC 40 MG/ML VIAL IV SCH ×3 (06:33→22:14)
[2018-12-07] MEDS: INSULIN REGULAR, HUMAN 100 UNIT/ML 3 ML VIAL SQ PRN (06:34)
[2018-12-07] MEDS: BLOOD SUGAR DIAGNOSTIC 1 EACH STRIP VI SCH ×4 (06:35→21:04)
[2018-12-07] MEDS: PANTOPRAZOLE 40 MG TABLET.DR PO SCH (07:30)
--- NOTE | 2018-12-07 07:30 | NUR ---
RN AM SHIFT NOTE PATIENT ALERT ORIENTED AND STABLE. VITALS WNL. IV PATENT AND INTACT. CONSENT FOR PROCEDURE SIGNED AND EXPLAINED TO PATIENT. PATIENT IS AWARE OF REASON FOR THORACENTESIS SCHEDULED THIS AM. PATIENT INFORMED OF ELEVATED BLOOD SUGAR 344 AND REFUSED ANY INSULIN. WILL ASSESS AT NOON AND REINFORCE IMPORTANCE OF BLOOD SUGAR MANAGEMENT. ISOLATION MEASURS IN PLACE, SAFETY PRECAUTIONS IN PLACE IV PATENT AND INTACT.
--- NOTE | 2018-12-07 08:06 | NUR ---
RN CLOSING NOTES PATIENT AWAKE SITTING IN BED. A/OX4. NO SIGNS OF DISTRESS OR DISCOMFORT. BREATHING EVEN AND UNLABORED. ON 3LPM O2 VIA NC. ON TELE MONITORING WITH SR 87 NOTED. IV ACCESS IN L HAND, PATENT AND INTACT, NO SIGNS OF REDNESS OR INFILTRATION. ALL NEEDS MET. NO SIGNIFICANT CHANGES THROUGH THE NIGHT. BED IN LOW LOCKED POSITION WITH SIDE RAILS X2. CALL LIGHT WITHIN REACH. PT ADVISED TO USE CALL LIGHT FOR ASSISTANCE. ENDORSED TO AM SHIFT FOR DULCE.
[2018-12-07 08:33] VITALS: BP 146/59
[2018-12-07] MEDS: MUPIROCIN OINT 2% 22 GM TUBE SCH ×2 (08:45→21:01)
[2018-12-07] MEDS: METOLAZONE 2.5 MG TABLET PO SCH (08:45)
[2018-12-07] MEDS: AMLODIPINE BESYLATE 10 MG TABLET PO SCH (08:46)
[2018-12-07] MEDS: hydrALAZINE HCL 50 MG TABLET PO SCH ×2 (08:46→16:41)
[2018-12-07] MEDS: ISOSORBIDE DINITRATE (10MG) 10 MG TABLET PO SCH ×2 (08:49→16:42)
[2018-12-07] MEDS: FUROSEMIDE 40 MG TABLET PO SCH (09:53)
--- NOTE | 2018-12-07 11:32 | NUR ---
RN NOTE RADIOLOGY REPEATED CHEST XRAY. MD CANCELLED US GUIDED THORACENTESIS. PO MEDICATIONS BEING TAKEN PER MD ORDER. NO SOB NOTED, PATIENT STATED FLUID IN LEG HAS SUBSIDED AND DECREASE SOB. PATIENT AWARE THORACENTEIS WILL NOT BE PERFORMED AT THIS TIME. SIN [place]. SAFETY MEASURS IN PLAC AT THIS TIME.
[2018-12-07] MEDS: *INSULIN REGULAR(HUMULIN R)HUM 100 UNIT/ML VIAL SQ PRN ×3 (12:38→21:26)
[2018-12-07 16:24] VITALS: BP 151/54
[2018-12-07] MEDS: LEVOFLOXACIN 250 MG /D5W 50 ML 250 MG in PREMIX 1 EA IV SCH (17:46)
--- NOTE | 2018-12-07 19:10 | NUR ---
MS RN OPENING NOTES Received patient sitting up on bed, alert, oriented x 4. Breathing even and unlabored. Not in any distress, on O2 at 3LPM via nasal cannula. No complaints of any discomfort at this time. Safety measures in place. Call light within reach. Bed in low, locked position. Encouraged to call for assistance. Will continue to monitor accordingly
[2018-12-07 20:00] VITALS: BP 123/57
[2018-12-07 20:50] VITALS: BP 123/57
--- NOTE | 2018-12-07 21:26 | NUR ---
RN NOTES BSL- 278mg/dL. Insulin 6 units given per sliding scale. Snacks provided
[2018-12-07] MEDS: ALPRAZOLAM 0.25 MG TABLET PO PRN (21:27)
--- NOTE | 2018-12-07 21:30 | NUR ---
RN NOTES Patient requesting Xanax for anxiety and as per patient, it helps her sleep. Vital signs stable. Xanax 0.50mg given as ordered. Will continue to monitor
[2018-12-08 00:15] VITALS: BP 120/60
[2018-12-08 04:03] VITALS: BP 135/59
[2018-12-08] MEDS: methylPREDNISolone SOD SUCC 40 MG/ML VIAL IV SCH (06:14)
[2018-12-08] MEDS: INSULIN REGULAR, HUMAN 100 UNIT/ML 3 ML VIAL SQ PRN ×3 (06:35→17:41)
--- NOTE | 2018-12-08 06:45 | NUR ---
PLASTIC PRESS OPERATOR CLOSING NOTES Patient sitting up in bed, alert, oriented x 4. Breathing even and unlabored. Not in any distress, on 3L via nasal cannula. On tele monitor- sinus rhythm 86 with PACs. BSL- 390mg/dL. 15 units of insulin given per sliding scale. No acute changes overnight. Safety measures in place; call light within reach, bed in low, locked position. Will endorse DULCE to AM RN
[2018-12-08 07:18] LABS: BASOPHILS % (AUTO) 0.2 % (0.0-2.0); HEMATOCRIT 35 % (33-45); HEMOGLOBIN 11.6 g/dL (11.5-14.8); LYMPHOCYTES # (AUTO) 0.4 /CMM (0.8-4.8); LYMPHOCYTES % (AUTO) 4.9 % (20.0-44.0); MEAN CORPUSCULAR HGB CONC 33 g/dl (31.0-36.0); MEAN CORPUSCULAR VOLUME 95 fL (82-100); MONOCYTES # (AUTO) 0.2 /CMM (0.1-1.30); MONOCYTES % (AUTO) 2.2 % (2.0-12.0); NEUTROPHILS # (AUTO) 6.9 /CMM (1.8-8.9); NEUTROPHILS % (AUTO) 92.7 % (43.0-81.0); PLATELET COUNT (AUTO) 187 /CMM (150-450); RED BLOOD CELL COUNT(AUTO) 3.68 MIL/uL (4.0-5.2); WHITE BLOOD COUNT (AUTO) 7.5 K/uL (4.3-11.0)
--- NOTE | 2018-12-08 07:30 | NUR ---
COSTUME SPECIALIST OPENING NOTES RECEIVED PATIENT IN BED, AWAKE. ALERT AND ORIENTED X4. ON O2 2L/MIN VIA NC. NO RESPIRATORY DISTRESS AT THIS TIME. VERBALLY RESPONSIVE. DENIES ANY C/O PAIN NOR DISCOMFORT. LEFT HAND G#20 INTACT AND PATENT. BLOOD GLUCOSE 292 MG/DL AT 0730. ON TELE MONITORING SR WITH PAC: 89. NO S/S OF COMPLICATIONS OBSERVED. BED IN LOWEST POSITION. CALL LIGHT WITHIN REACH. ABLE TO VERBALIZE NEEDS.
[2018-12-08 07:48] LABS: CARBON DIOXIDE 23 mmol/L (21-32); CHLORIDE 96 mmol/L (98-107); CREATININE 5.2 mg/dL (0.6-1.3); MAGNESIUM 2.1 mg/dL (1.8-2.4); PHOSPHORUS 6.4 mg/dL (2.5-4.9); POTASSIUM 3.1 mmol/L (3.5-5.1); SODIUM SERUM 137 mmol/L (136-145)
[2018-12-08 07:54] LABS: GLUCOSE 391 mg/dL (74-106); UREA NITROGEN, BLOOD 112 mg/dL (7-18)
[2018-12-08 08:00] VITALS: BP 144/57
[2018-12-08] MEDS: BLOOD SUGAR DIAGNOSTIC 1 EACH STRIP VI SCH ×3 (08:20→17:31)
[2018-12-08] MEDS: PANTOPRAZOLE 40 MG TABLET.DR PO SCH (08:29)
[2018-12-08] MEDS: METOLAZONE 2.5 MG TABLET PO SCH (08:32)
[2018-12-08] MEDS: MUPIROCIN OINT 2% 22 GM TUBE SCH (08:32)
[2018-12-08] MEDS: AMLODIPINE BESYLATE 10 MG TABLET PO SCH (08:32)
[2018-12-08] MEDS: hydrALAZINE HCL 50 MG TABLET PO SCH ×2 (08:33→17:52)
[2018-12-08] MEDS: FUROSEMIDE 40 MG TABLET PO SCH (08:33)
[2018-12-08] MEDS: ISOSORBIDE DINITRATE (10MG) 10 MG TABLET PO SCH ×2 (08:36→17:52)
[2018-12-08 11:09] LABS: ABG BASE EXCESS -3.2 mmol/L; ABG OXYGEN SATURATION 91.4 % (92.0-98.5); ABG PCO2 41.7 mmHg (35.0-45.0); ABG PH 7.346 (7.350-7.450); AaDO2 31.8 mmHg; COHb 0.6 % (0.5-1.5); MetHb 0.2 % (0.0-1.5); O2Hb 90.7 % (94.0-97.0); SITE, ABG Right Brachial; VENT MODE, BG room air
[2018-12-08 16:00] VITALS: BP 144/57
[2018-12-08] MEDS: LEVOFLOXACIN 250 MG /D5W 50 ML 250 MG in PREMIX 1 EA IV SCH (17:31)
[2018-12-08 17:52] VITALS: BP 145/80
--- NOTE | 2018-12-08 18:30 | NUR ---
GRAIN I FARMWORKER CLOSING NOTES PATIENT ALERT AND ORIENTED X4. ON O2 3L/MIN VIA NC. NO RESPIRATORY DISTRESS AT THIS TIME. VERBALLY RESPONSIVE. DENIES ANY C/O PAIN NOR DISCOMFORT. LEVAQUIN IV GIVEN ORDERED EB WELL. LEFT HAND G#20 SL REMOVED WITH CATHETER INTACT POST ATB THERAPY. CALLED [facility] AND GAVE REPORT TO ELYSE. ALL BELONGINGS ACCOUNTED FOR. DISCHARGE INSTRUCTIONS AND PACKET GIVEN TO PATIENT. NO S/S OF COMPLICATIONS OBSERVED. REPORT ALSO GIVEN TO EMT. PATIENT LEFT IN STABLE CONDITION VIA LIAM ACCOMPANIED BY 3 EMT.
--- NOTE | 2018-12-08 19:39 | NUR ---
EDUCATION AND TRAINING MANAGER CLOSING NOTES PATIENT ALERT AND ORIENTED X4. ON O2 3L/MIN VIA NC. NO RESPIRATORY DISTRESS AT THIS TIME. VERBALLY RESPONSIVE. DENIES ANY C/O PAIN NOR DISCOMFORT. LEVAQUIN IV GIVEN ORDERED EB WELL. LEFT HAND G#20 SL REMOVED WITH CATHETER INTACT POST ATB THERAPY. CALLED [facility] AND GAVE REPORT TO ELYSE. ALL BELONGINGS ACCOUNTED FOR. DISCHARGE INSTRUCTIONS AND PACKET GIVEN TO PATIENT. NO S/S OF COMPLICATIONS OBSERVED. REPORT ALSO GIVEN TO EMT. PATIENT LEFT IN STABLE CONDITION VIA LIAM ACCOMPANIED BY 3 EMT. Addendum: 12/08/18 at 1950 by KEEGAN ALLISON RN DISREGARD ABOVE NOTES.
== END 2018-12-08 18:30 | disposition short-term general hospital (02) | DRG 682 ==
LOC: ER 14:36 → MED 17:05 → ICU 12-05 09:33 → TELE 12-06 13:05 → MED 12-08 13:30
PROVIDERS: ADMIT Internal Medicine; ATTEND Internal Medicine Nephrology
PROC: 5A09357 Assistance with Respiratory Ventilation, Less than 24 Consecutive Hours, Continuous Positive Airway Pressure (ICD-10-PCS; principal; 2018-12-05)
DX: N17.0 Acute kidney failure with tubular necrosis (principal); J96.01 Acute respiratory failure with hypoxia; J96.02 Acute respiratory failure with hypercapnia; J18.9 Pneumonia, unspecified organism; I50.33 Acute on chronic diastolic (congestive) heart failure; I13.0 Hypertensive heart and chronic kidney disease with heart failure and stage 1 through stage 4 chronic kidney disease, or unspecified chronic kidney disease; E87.2 Acidosis; J44.1 Chronic obstructive pulmonary disease with (acute) exacerbation; J44.0 Chronic obstructive pulmonary disease with (acute) lower respiratory infection; N18.4 Chronic kidney disease, stage 4 (severe); I25.5 Ischemic cardiomyopathy; E78.5 Hyperlipidemia, unspecified; E11.51 Type 2 diabetes mellitus with diabetic peripheral angiopathy without gangrene; I25.10 Atherosclerotic heart disease of native coronary artery without angina pectoris; E11.22 Type 2 diabetes mellitus with diabetic chronic kidney disease; Z87.442 Personal history of urinary calculi; Z95.5 Presence of coronary angioplasty implant and graft; Z86.718 Personal history of other venous thrombosis and embolism; Z87.891 Personal history of nicotine dependence; Z79.4 Long term (current) use of insulin; Z88.2 Allergy status to sulfonamides; Z22.322 Carrier or suspected carrier of Methicillin resistant Staphylococcus aureus; L98.8 Other specified disorders of the skin and subcutaneous tissue; I48.91 Unspecified atrial fibrillation; I27.20 Pulmonary hypertension, unspecified; Z79.01 Long term (current) use of anticoagulants
CPT/HCPCS: 36415; 36600; 71045-TC; 76604-TC; 76770-TC; 80048-TC; 80053-TC; 80061-TC; 81000-TC; 82550-TC; 82570-TC; 82803-TC; 82962-TC; 83735-TC; 83970; 84100-TC; 84155; 84155-TC; 84165; 84300-TC; 84484-TC; 85025-TC; 85730-TC; 87081-TC; 93970-TC; 94660; 94799-TC; A4216; G0378; J1815; J1940; J1956; J2405; J2920; J3480; J7030; J7040; J7050

== ENCOUNTER 2019-01-17 11:38 | Inpatient (IN) | payer MEDICARE, OTHER ==
[~2019-01-17 11:38] MED LIST changes: -ACET325T53 PO; -APIX2.5T PO; -CARV25TA2 PO; -CHOL500052 PO; -CLOP75TA15 PO; -FURO40TA5 PO; -FURO80TA3 PO; -GLIP10TA11 PO; -MAGN400O6 PO
[2019-01-17] MEDS ORDERED: ALPRAZOLAM 0.25 MG TABLET ONE (12:18)
[2019-01-17] MEDS ORDERED: ALPRAZOLAM 0.25 MG TABLET PO ONE (12:30)
[2019-01-17] MEDS ORDERED: ALTEPLASE CATHFLO 2 MG/VIAL IV ONE ×2 (13:00→18:00)
[2019-01-17] MEDS ORDERED: CLOP75TA15 PO (13:48)
[2019-01-17] MEDS ORDERED: METO25TA6 PO (13:48)
[2019-01-17] MEDS ORDERED: FURO-144 PO (13:48)
[2019-01-17] MEDS ORDERED: ISOS10TA2 PO (13:48)
[2019-01-17] MEDS ORDERED: CALC667C6 PO (13:48)
[2019-01-17] MEDS ORDERED: DOCU-141 PO (13:48)
[2019-01-17] MEDS: ALPRAZOLAM 0.25 MG TABLET PO PRN (17:43)
[2019-01-17] MEDS ORDERED: MORPHINE SULFATE INJ 2 MG/ML DISP.SYRIN IV ONE (19:00)
[2019-01-18] MEDS: ALPRAZOLAM 0.25 MG TABLET PO PRN ×3 (01:09→18:56)
[2019-01-18] MEDS: ATORVASTATIN 40 MG TABLET PO SCH ×2 (08:36→08:39)
[2019-01-18] MEDS: PANTOPRAZOLE 40 MG TABLET.DR PO SCH (08:37)
[2019-01-18] MEDS: METOPROLOL TARTRATE 25 MG TABLET PO SCH ×2 (08:38→16:34)
[2019-01-18] MEDS: hydrALAZINE HCL 50 MG TABLET PO SCH ×2 (08:40→16:35)
[2019-01-18] MEDS: ISOSORBIDE DINITRATE (10MG) 10 MG TABLET PO SCH ×2 (08:41→21:00)
[2019-01-18] MEDS: AMLODIPINE BESYLATE 10 MG TABLET PO SCH (08:41)
[2019-01-18] MEDS: CLOPIDOGREL BISULFATE 75 MG TABLET PO SCH (09:22)
[2019-01-18] MEDS ORDERED: HEPARIN SODIUM, PORCINE 5000 UNITS/1 ML VIAL IV ONE (10:00)
[2019-01-18] MEDS: HEPARIN INFUSION/D5W 500 ML IV PRN ×2 (11:15→18:08)
[2019-01-18] MEDS ORDERED: INSULIN ASPART SQ PRN (12:30)
[2019-01-18] MEDS: HYDROCODONE/APAP 5/325MG 1 EACH TABLET PO PRN ×2 (12:51→18:56)
[2019-01-18] MEDS ORDERED: BLOOD SUGAR DIAGNOSTIC 1 EACH STRIP IN SCH (13:00)
[2019-01-18] MEDS ORDERED: DEXTROSE 50%-WATER 50 ML DISP.SYRIN IV PRN (13:00)
[2019-01-18] MEDS: BLOOD SUGAR DIAGNOSTIC 1 EACH STRIP IN SCH ×2 (16:34→22:03)
[2019-01-18] MEDS: INSULIN ASPART/LISPRO 100 UNIT/ML CARTRIDGE SQ PRN (22:07)
[2019-01-19] MEDS: HYDROCODONE/APAP 5/325MG 1 EACH TABLET PO PRN ×2 (03:50→19:20)
[2019-01-19] MEDS: INSULIN ASPART/LISPRO 100 UNIT/ML CARTRIDGE SQ PRN ×3 (06:49→21:32)
[2019-01-19] MEDS: BLOOD SUGAR DIAGNOSTIC 1 EACH STRIP IN SCH ×4 (07:30→21:18)
[2019-01-19] MEDS: METOPROLOL TARTRATE 25 MG TABLET PO SCH ×3 (08:40→16:57)
[2019-01-19] MEDS: ISOSORBIDE DINITRATE (10MG) 10 MG TABLET PO SCH ×2 (08:40→21:15)
[2019-01-19] MEDS: ATORVASTATIN 40 MG TABLET PO SCH (08:41)
[2019-01-19] MEDS: CLOPIDOGREL BISULFATE 75 MG TABLET PO SCH (08:41)
[2019-01-19] MEDS: hydrALAZINE HCL 50 MG TABLET PO SCH ×3 (08:41→16:57)
[2019-01-19] MEDS: PANTOPRAZOLE 40 MG TABLET.DR PO SCH (08:41)
[2019-01-19] MEDS: AMLODIPINE BESYLATE 10 MG TABLET PO SCH ×2 (08:41→09:00)
[2019-01-19] MEDS: HEPARIN SODIUM, PORCINE 5000 UNITS/1 ML VIAL SQ SCH ×3 (08:43→21:16)
[2019-01-19] MEDS ORDERED: GABAPENTIN 300 MG CAPSULE PO SCH (20:00)
[2019-01-20] MEDS ORDERED: MAG HYDROX/AL HYDROX/SIMETH 30 ML UDC PO ONE
[2019-01-20] MEDS: PANTOPRAZOLE 40 MG TABLET.DR PO SCH (07:30)
[2019-01-20] MEDS: BLOOD SUGAR DIAGNOSTIC 1 EACH STRIP IN SCH ×2 (07:30→11:39)
[2019-01-20] MEDS: AMLODIPINE BESYLATE 10 MG TABLET PO SCH (09:00)
[2019-01-20] MEDS: METOPROLOL TARTRATE 25 MG TABLET PO SCH (09:00)
[2019-01-20] MEDS: HEPARIN SODIUM, PORCINE 5000 UNITS/1 ML VIAL SQ SCH (09:00)
[2019-01-20] MEDS: hydrALAZINE HCL 50 MG TABLET PO SCH (09:00)
[2019-01-20] MEDS: ISOSORBIDE DINITRATE (10MG) 10 MG TABLET PO SCH (09:00)
[2019-01-20] MEDS: CLOPIDOGREL BISULFATE 75 MG TABLET PO SCH (09:00)
[2019-01-20] MEDS: ATORVASTATIN 40 MG TABLET PO SCH (09:00)
== END 2019-01-20 05:30 | disposition short-term general hospital (02) | DRG 280 ==
DX: T82.41XA Breakdown (mechanical) of vascular dialysis catheter, initial encounter (principal); N18.6 End stage renal disease; I21.4 Non-ST elevation (NSTEMI) myocardial infarction; I13.2 Hypertensive heart and chronic kidney disease with heart failure and with stage 5 chronic kidney disease, or end stage renal disease; Y71.2 Prosthetic and other implants, materials and accessory cardiovascular devices associated with adverse incidents; E11.22 Type 2 diabetes mellitus with diabetic chronic kidney disease; E78.5 Hyperlipidemia, unspecified; G89.4 Chronic pain syndrome; I25.10 Atherosclerotic heart disease of native coronary artery without angina pectoris; I25.5 Ischemic cardiomyopathy; I48.91 Unspecified atrial fibrillation; Z79.4 Long term (current) use of insulin; Z87.442 Personal history of urinary calculi; Z99.2 Dependence on renal dialysis; D63.1 Anemia in chronic kidney disease; J44.9 Chronic obstructive pulmonary disease, unspecified; M47.26 Other spondylosis with radiculopathy, lumbar region; E11.51 Type 2 diabetes mellitus with diabetic peripheral angiopathy without gangrene; M54.5 Low back pain; I50.9 Heart failure, unspecified; Y92.009 Unspecified place in unspecified non-institutional (private) residence as the place of occurrence of the external cause